=== PATIENT | male | born 1940 | race Caucasian/White ===

== ENCOUNTER 2016-05-06 14:30 | Emergency (ER) | payer OTHER ==
[~2016-05-06] VITALS: Ht 177.8 cm; Wt 93.0 kg
[~2016-05-06 14:30] MED LIST: ACETAMINOPHEN/O1 TAB PO; ACETAMINOPHEN500 M4 PO; ACETAMINOPHEN650 M4 PO; B-121000 MC3 PO; BENADRYL25 MG PO; HYDRODIURIL 2525 MG PO; IMODIUM A-D2 M1 PO; LEVEMIR FL100 UNIT/1 SC; LOSARTAN POTAS100 M1 PO; METFORMIN HCL500 M5 PO; NOVOLOG FL100 UNIT/1 SC; PRAVACHOL80 M1 PO; ROZEREM8 M1 PO; SENNA8.6 M3 PO; TRAMADOL HCL50 M1 PO; TRAZODONE HCL100 M1 PO; VICTOZA 3-0.6 MG/0.1 SC; VITAMIN D31000 UNI1 PO; ZOLOFT100 M1 PO
--- NOTE | 2016-05-06 14:36 | ED MVC/FALL/TRAUMA COMPLAINT ---
History of Present Illness General Chief Complaint: Fall Stated Complaint: FALL X2 TODAY Source: patient, old records, EMS Exam Limitations: no limitations Allergies Coded Allergies: aspirin (PER 05/06/16) Reconcile Medications Acetaminophen 325 MG TABLET 2 TAB PO TID PRN PAIN/FEVER (Reported) Cholecalciferol (Vitamin D3) (Vitamin D3) 1,000 UNIT CAPSULE 1 CAP PO 0900 SUPPLEMENT (Reported) Cyanocobalamin (Vitamin B-12) (B-12) 1,000 MCG TABLET 1 TAB PO 0900 SUPPLEMENT (Reported) Diphenhydramine HCl (Benadryl) 25 MG CAPSULE 1 CAP PO BID PRN ITCHING ( Reported) Gabapentin 100 MG CAPSULE 1 CAP PO BID UNKNOWN (Reported) Hydrochlorothiazide 25 MG TABLET 1 TAB PO DAILY BP/DIURETIC (Reported) Insulin Detemir (Levemir Flextouch) 100 UNIT/ML (3 ML) INSULN.PEN 85 U SC 2100 DIABETES (Reported) Insulin Lispro (Humalog Kwikpen U-100) 100 UNIT/ML INSULN.PEN 18 UNITS SC WM DM (Reported) Liraglutide (Victoza 3-Lior) 0.6 MG/0.1 ML (18 MG/3 ML) PEN.INJCTR 0.3 ML SC 1100 DIABETES (Reported) Loperamide HCl (Imodium A-D) 2 MG TABLET 1 TAB PO Q4P PRN DIARRHEA (Reported) Losartan Potassium 100 MG TABLET 1 TAB PO 0900 HTN (Reported) Metformin HCl (Metformin HCl ER) 500 MG [id number] 3 TAB PO 1630 DIABETES ( Reported) Pravastatin Sodium (Pravachol) 80 MG TABLET 1 TAB PO 1630 CHOLESTEROL ( Reported) Ramelteon (Rozerem) 8 MG TABLET 1 TAB PO 2000 SLEEP (Reported) Sertraline HCl (Zoloft) 100 MG TABLET 1.5 TAB PO 2000 MENTAL HEALTH (Reported ) Tramadol HCl 50 MG TABLET 1 TAB PO Q8P PRN PAIN (Reported) Trazodone HCl 150 MG TABLET 1 TAB PO QHS PRN SLEEP (Reported) Triage Nurses Notes Reviewed? yes HPI: Patient is a 75-year-old male presents for evaluation of multiple falls. Patient lives in assisted living, reports that he is supposed to ambulate with a walker. Patient was walking today when he reports he tripped and fell. Patient reports that the floor was sticky. Patient fell onto his knees, reports that he may have been on the ground for approximately 1 hour. Patient reports that he also fell approximately 2 days ago. EMS reports that patient reportedly fell twice today. Pain is 0 out of 10. Patient denies head injury, headache, neck pain, back pain, change in vision, extremity numbness, chest pain, lightheadedness, syncope, near syncope. (COREY VERNON) Vital Signs & Intake/Output Vital Signs & Intake/Output Vital Signs Date Time Temp Pulse Resp B/P Pulse O2 O2 Flow FiO2 Ox Delivery Rate 05/06 1721 97.0 63 15 162/60 97 Room Air Room Air 05/06 1525 Room Air Room Air 05/06 1446 96.4 72 20 155/70 94 Room Air Past History Travel History Traveled to [place] past 21 day No Medical History Any Pertinent Medical History? 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 No (COREY VERNON) Review of Systems Review of Systems Constitutional: Denies: chills, fever. Eyes: Denies: blurred vision, pain. Ears, Nose, Throat, Mouth: Reports: no symptoms. Respiratory: Denies: cough, short of breath. Cardiovascular: Denies: chest pain, palpitations, syncope. Gastrointestinal/Abdominal: Denies: abdominal pain, nausea, vomiting. Genitourinary: Reports: no symptoms. Musculoskeletal: Denies: back pain, neck pain. Skin: Reports: no symptoms. Neurological/Psychological: Denies: headache, numbness, unable to move lower ext, unable to move upper ext. (COREY VERNON) Physical Exam Physical Exam General Appearance: well developed/nourished, alert, awake Head: atraumatic, normal appearance, nontender Eyes: Bilateral: normal appearance, PERRL, EOMI. Ears, Nose, Throat, Mouth: hearing grossly normal, moist mucous membrane Neck: normal inspection, supple, full range of motion, no midline tenderness, no paraspinal tenderness Respiratory: normal breath sounds, chest non-tender, no respiratory distress, lungs clear Cardiovascular: regular rate/rhythm Peripheral Pulses: 2+ dorsalis pedis (R), 2+ dorsalis pedis (L) Gastrointestinal: soft, non-tender Back: normal inspection, normal range of motion, no vertebral tenderness, no midline or paraspinal tenderness Extremities: abrasions to bilateral anterior knees. Full range of motion of all 4 extremity is. No bony tenderness Neurologic/Psych: no motor/sensory deficits, awake, alert, normal mood/affect, director multimedia II-XII nml as tested Skin: warm/dry Core Measures ACS in differential dx? No Severe Sepsis Present: No Septic Shock Present: No (COREY VERNON) Progress Differential Diagnosis: aoritic dissection, abd injury, C/T/L spine injury, ext injury, ICH, pelvis injury, pnemothorax, spinal cord injury, cva, electrolyte abnormality, DKA, hyperglycemia, syncope, near syncope (COREY VERNON) Plan of Care: Orders Procedure Date/time Status MIXED VENOUS BLOOD GAS (GEN) 05/06 1446 Complete SERUM OSMOLALITY 05/06 1446 Complete COMPREHENSIVE METABOLIC PANEL 05/06 1446 Complete CBC WITHOUT DIFFERENTIAL 05/06 1446 Complete ACETONE 05/06 1446 Complete Laboratory Tests 05/06/16 1528: Anion Gap 12, Estimated GFR 54 L, BUN/Creatinine Ratio 27.7 H, Glucose 317 H, Serum Osmolality 316 H, Calcium 9.3, Total Bilirubin 0.9, AST 23, ALT 42, Alkaline Phosphatase 63, Total Protein 6.8, Albumin 3.8, Globulin 3.0, Albumin/ Globulin Ratio 1.3, Acetone Level NEGATIVE 05/06/16 1506: Bicarbonate Actual 27 H, Mixed VBG pH 7.40, Mixed VBG pCO2 44, Mixed VBG O2 Saturation 45, Carboxyhemoglobin 1.0 L, O2 Concentration % RA, O2 Delivery Method RA, Phlebotomy Draw Site BEULAH. 05/06/16 1505: CBC w Diff NO MAN DIFF REQ, RBC 4.78, MCV 82.8, MCH 27.8, RDW 17.4 H, MPV 8.8, Gran % 78.6 H, Lymphocytes % 11.8 L, Monocytes % 8.1, Eosinophils % 1.0, Basophils % 0.5, Absolute Granulocytes 6.5, Absolute Lymphocytes 1.0 L, Absolute Monocytes 0.7 H, Absolute Eosinophils 0.1, Absolute Basophils 0, PUBS MCHC 33.5 05/06/2016 3:47:07 PM: Patient now endorsing coccyx pain. Patient reports that he did not feel pain to the coccyx area when he fell, pain onset while sitting in the stretcher in the emergency department. 05/06/2016 4:58:00 PM: Results of labs discussed with patient. Insulin ordered. Patient ambulated with walker without difficulty 05/06/2016 5:07:16 PM: Discussed with and seen by Dr. Saldaña. (COREY VERNON) Departure Departure Disposition: HOME OR SELF CARE Condition: Stable Clinical Impression Primary Impression: Multiple falls Secondary Impressions: Hyperglycemia Referrals: GEOFFREY SORIA,SUSIE Sarmiento (PCP/Family) Additional Instructions: Follow up with your primary doctor within 1 week for further evaluation. Call in the morning for appointment. Check your blood sugar at least 3 times a day and keep a record of your blood sugars to bring with you to your doctor. Use your walker at all times with ambulation. Return to the ER if any worsening of symptoms. Departure Forms: Customer Survey General Discharge Information (COREY VERNON) PA/ORACLE DATABASE ARCHITECT Co-Sign Statement Statement: ED Attending supervision documentation- [X] I saw and evaluated the patient. I have also reviewed all the pertinent lab results and diagnostic results. I agree with the findings and the plan of care as documented in the PA's/ORACLE DATABASE ARCHITECT's documentation. [] I have reviewed the ED Record and agree with the PA's/ORACLE DATABASE ARCHITECT's documentation. [] Additions or exceptions (if any) to the PAs/ORACLE DATABASE ARCHITECT's note and plan are summarized below: [] (DRU SORIA,ARACELIS Godinez)
[2016-05-06 15:39] LABS: ABSOLUTE BASOPHIL COUNT 0 /CUMM (0.0-0.2); ABSOLUTE EOSINOPHIL COUNT 0.1 /CUMM (0.0-0.7); ABSOLUTE GRANULOCYTE CT 6.5 /CUMM (1.4-6.5); ABSOLUTE MONOCYTE COUNT 0.7 /CUMM (0.10-0.60); BASOPHIL % 0.5 % (0.0-2.0); GRANULOCYTE % 78.6 % (42.2-75.2); HEMATOCRIT 39.6 % (42-52); MEAN CORPUSCULAR HGB 27.8 PG (27.0-31.0); MEAN CORPUSCULAR HGB CONC 33.5 G/DL (33.0-37.0); MEAN CORPUSCULAR VOLUME 82.8 FL (80.0-94.0); MEAN PLATELET VOLUME 8.8 FL (7.4-10.4); PLATELET COUNT 202 /CUMM (130-400); RBC DISTRIBUTION WIDTH 17.4 % (11.5-14.5); RED BLOOD CELL CT 4.78 /CUMM (4.70-6.10); WHITE BLOOD CELL COUNT 8.3 /CUMM (4.8-10.8)
[2016-05-06] MEDS ORDERED: ACETAMINOPHEN325 M2 PO (16:07)
[2016-05-06] MEDS ORDERED: GABAPENTIN100 M2 PO (16:10)
[2016-05-06] MEDS ORDERED: HYDROCHLOROTHIA25 M1 PO (16:10)
[2016-05-06] MEDS ORDERED: HUMALOG KW100 UNIT/1 SC (16:14)
[2016-05-06 22:40] VITALS: BP 149/84
== END 2016-05-06 22:40 ==
LOC: ERH 14:30
PROVIDERS: Physician Assistant
DX: Z04.3 Encounter for examination and observation following other accident (principal); E11.65 Type 2 diabetes mellitus with hyperglycemia; I10 Essential (primary) hypertension; W01.0XXA Fall on same level from slipping, tripping and stumbling without subsequent striking against object, initial encounter; Y93.01 Activity, walking, marching and hiking; Y92.129 Unspecified place in nursing home as the place of occurrence of the external cause
CPT/HCPCS: 96372

== ENCOUNTER 2016-05-17 12:20 | Inpatient (IN) | payer OTHER ==
[~2016-05-17] VITALS: Ht 177.8 cm; Wt 95.5 kg
[~2016-05-17 12:20] MED LIST changes: +ACETAMINOPHEN325 M2 PO; +GABAPENTIN100 M2 PO; +HUMALOG KW100 UNIT/1 SC; +HYDROCHLOROTHIA25 M1 PO
--- NOTE | 2016-05-17 14:03 | ED DYSPNEA/ASTHMA COMPLAINT ---
History of Present Illness General Chief Complaint: General Adult Stated Complaint: BIBA FOR COUGH, CONGESTION Source: patient Exam Limitations: no limitations Vital Signs & Intake/Output Vital Signs & Intake/Output Vital Signs Date Time Temp Pulse Resp B/P Pulse O2 O2 Flow FiO2 Ox Delivery Rate 05/17 1738 97.7 90 18 162/71 95 Nasal 2.0L Cannula 05/17 1700 96 Nasal 2.0L Cannula 05/17 1524 97.0 68 18 145/67 98 Nasal 2.0L Cannula 05/17 1225 97 Nasal 2.0L Cannula 05/17 1223 96.2 82 20 138/70 97 Nasal 2.0L Cannula Allergies Coded Allergies: No Known Allergies (05/17/16) Triage Note: BIBA FROM HOME C/O COUGH, CONGESTION X3 DAYS. WHEEZING AND SOB STARTED TODAY. RECEIVED 1 DUONEB BY EMS PASSENGER SERVICE REPRESENTATIVE. FINGERSTICK IN FIELD 248. O2 92% ON RA, INCREASED TO 97% ON 2LNC AFTER NEB. ALSO BEEN HAVING RECENT FALLS Triage Nurses Notes Reviewed? yes Onset: Gradual Duration: constant Timing: recent history Severity: moderate HPI: Patient is a 75-year-old male with a past medical history of falls, pacemaker placement in 12/06, diabetes, hyperlipidemia was been evaluated recently AT [facility] emergency room for multiple falls in which he states that he ALWAYS trips on objects in his house and states that the FLOOR IS "STICKY" AND ALSO MAKES HIM fall, HE STATES yesterday ANOTHER FALL OCCURRED however no traumatic injury had occurred. Patient was sent in by visiting nurse for concerns of cough wheezing and shortness of breath. Patient is not on home O2 and is not currently SMOKING Patient denies any fever chills chest pain arm pain jaw pain. Patient states that he has no change in his leg swelling FROM BASELINE. (KRISTY GUTIERREZ) Reconcile Medications Acetaminophen 325 MG TABLET 2 TAB PO TID PRN PAIN/FEVER (Reported) Cholecalciferol (Vitamin D3) (Vitamin D3) 1,000 UNIT CAPSULE 1 CAP PO 0900 SUPPLEMENT (Reported) Diphenhydramine HCl (Benadryl) 25 MG CAPSULE 1 CAP PO BID PRN ITCHING ( Reported) Gabapentin 100 MG CAPSULE 1 CAP PO BID UNKNOWN (Reported) Heparin (Heparin-1/2NS 25,000 Units/500) 25,000 UNIT/500 ML (50 UNIT/ML) IV.SOLN 800 UNITS IV CONTINOUS INFUSION NSTEMI Hydrochlorothiazide 25 MG TABLET 1 TAB PO DAILY BP/DIURETIC (Reported) Insulin Detemir (Levemir Flextouch) 100 UNIT/ML (3 ML) INSULN.PEN 85 U SC 2100 DIABETES (Reported) Insulin Lispro (Humalog Kwikpen U-100) 100 UNIT/ML INSULN.PEN 18 UNITS SC WM DM (Reported) Loperamide HCl (Imodium A-D) 2 MG TABLET 1 TAB PO Q4P PRN DIARRHEA (Reported) Losartan Potassium 100 MG TABLET 1 TAB PO 0900 HTN (Reported) Metformin HCl (Metformin HCl ER) 500 MG [id number] 3 TAB PO 1630 DIABETES ( Reported) Metoprolol Tartrate 5 MG/5 ML VIAL 5 MG IV Q12 HEART HEALTH Nitroglycerin (Nitroglycerin Patch) 0.4 MG/HOUR PATCH.TD24 0.4 MG TOP DAILY NSTEMI Pravastatin Sodium (Pravachol) 80 MG TABLET 1 TAB PO 1630 CHOLESTEROL ( Reported) Ramelteon (Rozerem) 8 MG TABLET 1 TAB PO 2000 SLEEP (Reported) Sertraline HCl (Zoloft) 100 MG TABLET 1.5 TAB PO 2000 MENTAL HEALTH (Reported ) Tramadol HCl 50 MG TABLET 1 TAB PO Q8P PRN PAIN (Reported) Trazodone HCl 150 MG TABLET 1 TAB PO QHS PRN SLEEP (Reported) (DRU SORIA,ARACELIS Godinez) Past History Travel History Traveled to [place] past 21 day No Medical History Any Pertinent Medical History? 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 No (ALISON NICHOLSON,KRISTY) Review of Systems Review of Systems Constitutional: Reports: no symptoms. EENTM: Reports: see HPI. Respiratory: Reports: see HPI, cough, wheezing. Cardiovascular: Reports: no symptoms. GI: Reports: no symptoms. Genitourinary: Reports: no symptoms. Musculoskeletal: Reports: no symptoms. Skin: Reports: no symptoms. Neurological/Psychological: Reports: no symptoms. Hematologic/Endocrine: Reports: no symptoms. Immunologic/Allergic: Reports: no symptoms. All Other Systems: Reviewed and Negative (KRISTY GUTIERREZ) Physical Exam Physical Exam General Appearance: no apparent distress, comfortable Respiratory: chest non-tender, wheezing, respiratory distress (MILD) Comments: HEENT: Normal EENT exam, extraocular motion intact, no nystagmus. Pupils equally round and reactive to light and accommodation. Nose is atraumatic. External auditory canal and Tympanic membranes clear. Pharynx normal. No swelling or edema. Neck: Supple, no lymphadenopathy, normal range of motion without pain or tenderness Back: Nontender, no CVA tenderness. Cardiovascular: Regular rate and rhythms no murmurs rubs or gallops, normal JVP Abdomen: Soft, nontender nondistended, no appreciable organomegaly. Normal bowel sounds. No ascites Extremity: No edema, no calf tenderness to palpation, normal and equal pulses. Neuro: Alert oriented x3, motor sensory normal, cranial nerves II through XII grossly intact. Skin: No appreciable rash on exposed skin, skin is warm and dry. Psych: Mood and affect is normal, memory and judgment is normal. Core Measures ACS in differential dx? Yes Severe Sepsis Present: No Septic Shock Present: No (KRISTY GUTIERREZ) Progress Differential Diagnosis: asthma, AMI, bronchitis, costochondritis, CHF, COPD, musculoskeletal pain, pericarditis, pulmonary embolism, pneumonia, pneumothorax, unstable angina Plan of Care: Orders Procedure Date/time Status Consistent Carbohydrate 1 05/18 B Active BASIC ELECTROLYTES PLUS BUN&CR 05/18 0600 Active TROPONIN LEVEL 05/18 0200 Active EKG 05/18 0200 Active Consistent Carbohydrate 3 05/17 D Complete TROPONIN LEVEL 05/18 1999 Active EKG 05/18 1999 Active Vital Signs 05/17 183 Active Teach/Educate 05/17 1832 Active Pain Treatment and Response 05/17 1832 Active Nutritional Intake, Monitor 05/17 1832 Active Isolation 05/17 183 Active Intake & Output 05/17 1832 Active Patient Care Conference 05/17 1832 Active Activity/Ambulation 03/27 1833 Active FingerStick- Glucose 05/17 1832 Active Pathway - chart 05/17 1806 Active House Staff 05/17 1806 Active Code Status 05/17 1806 Active LACTIC ACID 05/17 1710 Active Patient Data 05/17 1657 Active Telemetry/Skein Yarn Dyer Helper 05/17 1653 Active Misc Message 05/17 1634 Active ED Holding Orders 05/17 1634 Active Vital Signs 05/17 1634 Active Code Status 05/17 1634 Complete Patient Data 05/17 1629 Active Admit to inpatient 05/17 1626 Active ARTERIAL BLOOD GAS (GEN) 05/17 1618 Active GLYCOSYLATED HGB 05/17 1439 Active RAPID VIRAL INFLUENZA A 05/17 1410 Active LOWER RESPIRATORY CULTURE 05/17 1410 Active BLOOD CULTURE 05/17 1410 Active TROPONIN LEVEL 05/17 1410 Active LACTIC ACID 05/17 1410 Active COMPREHENSIVE METABOLIC PANEL 05/17 1410 Active CBC WITHOUT DIFFERENTIAL 05/17 1410 Complete B-TYPE NATRIURETIC PEP (BNP) 05/17 1410 Active EKG 05/17 1229 Active Intake & Output 05/17 1225 Active TRC EVALUATION (GEN) 05/17 UNK Active PT Evaluate & Treat 05/17 UNK Active CHF Core Measures 05/17 UNK Active Lab Add-on Test 05/17 UNK Active Weight 05/17 UNK Active VTE Mechanical Prophylaxis 05/17 UNK Active ECHOCARDIOGRAM 05/17 UNK Active Current Medications Sig/Theodore Start time Last Medication Dose Stop Time Status Admin Cholecalciferol 1,000 IU DAILY 05/18 1000 UNVr (Vitamin D) Hydrochlorothiazide 25 MG DAILY 05/18 1000 UNVr (Hydrodiuril) Insulin Detemir 60 UNITS DAILY 05/18 1000 UNVr (Levemir) Pravastatin Sodium 80 MG DAILY 05/18 1000 UNVr (Pravachol) Losartan Potassium 100 MG 0905/18 0900 UNVr (Cozaar) Insulin Aspart 0 TIDAC 05/18 0800 UNVr (NovoLOG) Methylprednisolone 40 MG Q8 05/18 0600 UNVr (Solumedrol) Gabapentin 100 MG BID 05/17 2200 UNVr (Neurontin) Heparin Sodium 5,000 UNIT Q8 05/17 2200 UNVr (Porcine) Ramelteon 8 MG 05/17 UNVr (Rozerem) Sertraline HCl 150 MG 05/17 UNVr (Zoloft) Diphenhydramine HCl 25 MG BID PRN 05/17 1814 UNVr (Benadryl) Furosemide 40 MG 0800 & 1700 05/17 1814 UNVr (Lasix) Trazodone HCl 150 MG AT BEDTIME NEED.. 05/17 1814 UNVr (Desyrel) Laboratory Tests 05/17/16 1655: pH 7.45, pCO2 37, pO2 96, HCO3 25, ABG O2 Sat (Measured) 96.0, P-50 (Temp Corrected) N, Carboxyhemoglobin 0.9 L, O2 Concentration % 2L, Temperature 97.0, O2 Delivery Method NC, Phlebotomy Draw Site RIGHT BRACHIAL 05/17/16 1439: Anion Gap 9, Estimated GFR 54 L, BUN/Creatinine Ratio 24.6, Glucose 240 H, Hemoglobin A1c Pending, Lactic Acid 1.7, Calcium 11.1 H, Total Bilirubin 1.1, AST 23, ALT 41, Alkaline Phosphatase 62, Troponin I 0.10, Aeg-W-Hpgerkpqsjn Pept 1830 H, Total Protein 6.9, Albumin 4.1, Globulin 2.8, Albumin/Globulin Ratio 1.5, CBC w Diff NO MAN DIFF REQ, RBC 4.66 L, MCV 81.2, MCH 27.6, RDW 17.5 H, MPV 8.0, Gran % 69.0, Lymphocytes % 14.4 L, Monocytes % 15.4 H, Eosinophils % 1.1, Basophils % 0.1, Absolute Granulocytes 3.9, Absolute Lymphocytes 0.8 L, Absolute Monocytes 0.9 H, Absolute Eosinophils 0.1, Absolute Basophils 0, PUBS MCHC 34.0 Microbiology 05/17 1452 BLOOD: Blood Culture - RECD 05/17 1439 BLOOD: Blood Culture - RECD 05/17 1410 LOWER RESP: Respiratory Culture - ORD 05/17 141 LOWER RESP: Gram Stain - ORD 05/17 141 NASOPHARYN: Influenza Virus A & B Rapid Smear - ORD Patient currently has noted significant wheezing on exam patient was given multiple nebulizer treatments with mild improvement of exam findings of wheezing. Patient was noted to barely finish a sentence without getting out of breath. Patient was given 2 L of nasal cannula oxygen supplementation. Patient denies any chest pain He was tried to ambulate in the emergency room however he could not proceed due to significant shortness of breath. Patient will be admitted for concerns of new onset of COPD. Patient is a former smoker (ALISON NICHOLSON,KRISTY) Diagnostic Imaging: Viewed by Me: Radiology Read, CT Scan. Radiology Impression: SEE COMMENTS Initial ED EK BPM, ATRIAL PACED Comments: PATIENT: ELOY LI PRESENT AGE: 75 PATIENT ACCOUNT NO: [id number] : 42 LOCATION: [facility] ORDERING PHYSICIAN: KRISTY NICHOLSON SERVICE DATE: 05/17/16 EXAM TYPE: CAT - CT HEAD WO IV CONTRAST EXAMINATION: CT HEAD WITHOUT CONTRAST CLINICAL INFORMATION: Multiple falls COMPARISON: 02/28/2015 TECHNIQUE: Contiguous axial imaging was performed from the skull base to vertex without intravenous contrast. DLP: 601 mGy-cm. FINDINGS: The study is motion limited. There is no evidence of acute intracranial hemorrhage or territorial infarction. No abnormal mass effect or midline shift is seen. [place] to white matter differentiation is well preserved. No extra-axial fluid collections are identified. No hydrocephalus. Proportional prominence of the ventricles and sulcal spaces is consistent with mild volume loss. Patchy periventricular and deep white matter hypoattenuation is consistent with mild small vessel ischemic changes. Right basal ganglia chronic lacunar infarct again noted. The osseous structures and soft tissues are normal. The mastoid air cells are well aerated. There is diffuse opacification of the right ethmoid air cells, right sphenoid sinus, and right maxillary sinus. IMPRESSION: No acute intracranial pathology. Mild volume loss with small vessel ischemic changes. Redemonstration of opacification of the right paranasal sinuses. PATIENT: ELOY LI PRESENT AGE: 75 PATIENT ACCOUNT NO: [id number] : 42 LOCATION: [facility] ORDERING PHYSICIAN: KRISTY NICHOLSON SERVICE DATE: 05/17/16-1410 EXAM TYPE: RAD - XRY-PORTABLE CHEST XRAY EXAMINATION: XR PORTABLE CHEST CLINICAL INFORMATION: Shortness of breath and wheezing COMPARISON: Chest x-rays most recent prior dated 12/05/2015 TECHNIQUE: Portable AP view of the chest was obtained. FINDINGS: Left-sided dual lead pacemaker device in place. Stable cardiomediastinal silhouette. No acute airspace opacity. Linear subsegmental atelectasis lateral aspect left lower lung. No evidence of pleural effusion. Status post right shoulder arthroplasty. No acute osseous abnormality. IMPRESSION: No acute pulmonary disease. (KRISTY GUTIERREZ) Departure Departure Disposition: STILL A PATIENT Condition: Stable Clinical Impression Primary Impression: COPD (chronic obstructive pulmonary disease) Secondary Impressions: Falls frequently, Weakness Referrals: GEOFFREY SORIA,SUSIE Sarmiento (PCP/Family) Departure Forms: Customer Survey General Discharge Information Admission Note Spoke With: JOSUÉ FARIAS MD Documentation of Exam: Documentation of any treatments & extenuating circumstances including Concerns Regarding Discharge (functional status, medication knowledge or non-compliance, living conditions, etc.) that warrant an admission rather than observation: [ Discussed patient with Dr. FARIAS who agrees with telemetry admission for concerns of COPD weakness and multiple falls. Patient requires IV steroids, IV antibiotics repeat nebulizer treatments pulmonary consultation and telemetry monitoring. Outpatient treatment at this time would be medically harmful] (KRISTY GUTIERREZ) Departure Prescriptions: Current Visit Scripts Heparin (Heparin-1/2NS 25,000 Units/500) 800 UNITS IV CONTINOUS INFUSION #1 VIAL Metoprolol Tartrate 5 MG IV Q12 #1 VIAL Nitroglycerin (Nitroglycerin Patch) 0.4 MG TOP DAILY #1 PATCH Psych Admission Note Psychiatric Admission: I PA/SAP SECURITY CONSULTANT Co-Sign Statement Statement: ED Attending supervision documentation- [x] I saw and evaluated the patient. I have also reviewed all the pertinent lab results and diagnostic results. I agree with the findings and the plan of care as documented in the PA's/SAP SECURITY CONSULTANT's documentation. [] I have reviewed the ED Record and agree with the PA's/SAP SECURITY CONSULTANT's documentation. [] Additions or exceptions (if any) to the PAs/SAP SECURITY CONSULTANT's note and plan are summarized below: [] (DRU SORIA,ARACELIS Godinez) Critical Care Note Critical Care Note Critical Care Time: 30-74 min (KRISTY GUTIERREZ)
--- NOTE | 2016-05-17 14:35 | RADIOLOGY REPORT ---
EXAMINATION: XR PORTABLE CHEST CLINICAL INFORMATION: Shortness of breath and wheezing COMPARISON: Chest x-rays most recent prior dated 12/05/2015 TECHNIQUE: Portable AP view of the chest was obtained. FINDINGS: Left-sided dual lead pacemaker device in place. Stable cardiomediastinal silhouette. No acute airspace opacity. Linear subsegmental atelectasis lateral aspect left lower lung. No evidence of pleural effusion. Status post right shoulder arthroplasty. No acute osseous abnormality. IMPRESSION: No acute pulmonary disease.
[2016-05-17 14:48] LABS: ABSOLUTE BASOPHIL COUNT 0 /CUMM (0.0-0.2); ABSOLUTE EOSINOPHIL COUNT 0.1 /CUMM (0.0-0.7); ABSOLUTE GRANULOCYTE CT 3.9 /CUMM (1.4-6.5); ABSOLUTE LYMPH COUNT 0.8 /CUMM (1.2-3.4); ABSOLUTE MONOCYTE COUNT 0.9 /CUMM (0.10-0.60); BASOPHIL % 0.1 % (0.0-2.0); EOSINOPHIL % 1.1 % (0-5); HEMATOCRIT 37.9 % (42-52); MEAN CORPUSCULAR HGB 27.6 PG (27.0-31.0); MEAN CORPUSCULAR VOLUME 81.2 FL (80.0-94.0); PLATELET COUNT 160 /CUMM (130-400); RBC DISTRIBUTION WIDTH 17.5 % (11.5-14.5); RED BLOOD CELL CT 4.66 /CUMM (4.70-6.10); WHITE BLOOD CELL COUNT 5.7 /CUMM (4.8-10.8)
--- NOTE | 2016-05-17 17:02 | History & Physical ---
ASHLEE SORIA,[facility] 05/17/16 1702: General Information and HPI History of Present Illness: Mr. Lord is a 75-year-old gentleman with a PMH significant for HTN, HLD, T2DM with neuropathy, depression/anxiety, adjustment disorder, last admitted in Nov 2015 for symptomatic bradycardia, returns from [facility] with chief complaints of dypsnea with cough and nasal congestion for the past 4-5 days. Per the patient and his daughter at bedside, he has been confused often and fallen very frequently recently, resulting in 7 mechanical falls over the past 2 weeks. Currently c/o left hip pain with movement. He denies LOC and reports that he fell because his knees gave out. Denies chset pain, palpitations, f/c, dizziness, lightheadedness,diaphoresis, n/v/c/d. The patient has previously been worked up for frequent falls with no significant abnormal findings. His fall was attributed to neuropathy. Patient had a pacemaker placed by Dr. Blackman during the last admission at [place] in February this year due to symptomatic bradycardia with BBB. On social history he is a former smoker who quit 15+ years ago. Denies EtOH/ illicit drug use. Lives with his twin brother at [facility]. Ambulates with a walker and wheelchair alternatively. PCP - Dr. Gamino Mail Order Clerk - Dr. Bailey Surgeon - Dr. Blackman Daughter Lorie Lord: [phone] DNR/DNI. Allergies/Medications Allergies: Coded Allergies: No Known Allergies (05/17/16) Past History Travel History Traveled to [facility] past 21 day No Medical History Neurological: MEMORY NEUROPATHY Cardiovascular: hypertension Respiratory: NONE Gastrointestinal: NONE Hepatic: NONE Renal: NONE Musculoskeletal: CHRONIC R SHOULDER Psychiatric: anxiety, depression, ADJUSTMENT DISORDER Endocrine: diabetes Blood Disorders: NONE Cancer(s): NONE INSURANCE CONSULTANT/Reproductive: NONE History of MRSA: No History of VRE: No History of CDIFF: No Surgical History Surgical History: Right shoulder repair Past Family/Social History Family History Relations & Conditions if any BROTHER Cardiac pacemaker Sinus bradycardia Relation not specified for: Diabetes mellitus FH: hypertension FH: myocardial infarction Psychosocial History Who Do You Live With? self Services at Home: None Primary Language: Mexican ETOH Use: denies use Illicit Drug Use: denies illicit drug use Living Will? unknown Functional Ability ADLs Independent: dressing, eating, toileting, bathing. Ambulation: Walker was instructed to him but has not used it IADLs Independent: food prep, telephone. Needs Assist: shopping, housework, finances, transportation, medication admin. Review of Systems Review of Systems Constitutional: Reports: see HPI. Exam & Diagnostic Data Last 24 Hrs of Vital Signs/I&O Vital Signs Date Time Temp Pulse Resp B/P Pulse O2 O2 Flow FiO2 Ox Delivery Rate 05/17 1738 97.7 90 18 162/71 95 Nasal 2.0L Cannula 05/17 1700 96 Nasal 2.0L Cannula 05/17 1524 97.0 68 18 145/67 98 Nasal 2.0L Cannula 05/17 1225 97 Nasal 2.0L Cannula 05/17 1223 96.2 82 20 138/70 97 Nasal 2.0L Cannula Intake & Output 05/17 1600 05/17 0800 05/17 0000 Intake Total 0 Output Total Balance 0 Intake, Oral 0 Patient 92.986 kg Weight Physical Exam General Appearance Alert, Oriented X3, Cooperative, No Acute Distress Skin No Rashes, No Breakdown, No Significant Lesion HEENT Atraumatic, PERRLA, EOMI, Dry MM Neck Supple, No LAD Cardiovascular Regular Rate, Normal S1, Normal S2, No Murmurs, Gallops, Rubs Lungs Clear to Auscultation, Normal Air Movement Abdomen Normal Bowel Sounds, Soft, No Tenderness Neurological Normal Speech, Cranial Nerves 3-12 NL Extremities No Clubbing, No Cyanosis, No Edema, Normal Pulses, No Tenderness/ Swelling Vascular Normal Pulses, Pulses Symmetrical Assessment/Plan Assessment: Mr. 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 CHF. # Acute hypoxic resp failure Patient was reportedly hypoxic on RA at the [facility]. Currently requiring 2 liters of oxygen via NC to maintain O2 sat abov 92%. BNP > 1800 oin admission. * Admit to telemetery unit * Obtain TTE * Oxygen support and TRC neb tx as needed * Consult cardiology * Begin IV steroid * Start IV lasix 40mg BID * Strict I&Os with daily weights # Frequent falls Patient has fallen 7 times in 2 weeks per the jag. Radhaly endorses left hip pain. * Check X-ray of th left hip for fractures * Follow echo * Apprciate cardio recs # SHELDON Patient presents with a creatinine of 1.3 on admission. * Gentle IV hydration * Hold nephrotoxins * BEP daily, trend Cr # Hypertension * Cont home meds HCTZ 25 mg daily and losartan 100 mg daily QAM # Type 2 diabetes mellitus * Hold oral hypoglycemics * Novolog SSI with accuchecks * Consult endo if sugars not well controlled * Diabetic diet # Mood disorder and amnesia * Cont home meds Zoloft 100mg daily and Rozerm 8mp Qpm daily. * Consider resuming Trazodone dose 150 mg daily if needed # Diabetic diet # Mild pain pathway # DVTppx with SQH # DNR/I. As Ranked By This Provider Problem List: 1. Chest wall contusion 2. Junctional escape beats 3. AV block 4. Hyperglycemia 5. Bradycardia 6. AV block, 2nd degree 7. Mood disorder 8. Anemia 9. Adjustment insomnia 10. DVT prophylaxis 11. DNR (do not resuscitate) 12. DNI (do not intubate) 13. Amnesia 14. Chronic anemia 15. Cardiac pacemaker 16. Leukocytosis 17. Hypokalemia 18. Syncope 19. Multiple falls 20. COPD (chronic obstructive pulmonary disease) 21. Weakness Core Measures/Miscellaneous Acute Coronary Syndrome ACS Diagnosis: No Cerebrovascular Accident CVA/TIA Diagnosis: No Congestive Heart Failure CHF Diagnosis: No Venous Thromboembolism VTE Risk Factors: Age > 40 No [facility] VTE prophylaxis d/t: No contraindications No VTE Pharm Prophylaxis d/t: No contraindications VTE Diagnosis: No VTE Type: NONE VTE Confirmed by (Test): NONE Severe Sepsis Severe Sepsis Present: No Septic Shock Septic Shock Present: No Miscellaneous Documentation Attending Case Discussed With: JASON GOODMAN MD Primary Care Physician: GEOFFREY SORIA,SUSIE Sarmiento Patient sees these Specialists See HPI Level of Patient Care: Telemetry JASON GOODMAN 05/17/16 1723: Attending MD Review Statement Attending Statement Attending MD Statement: examined this patient, discuss w/resident/PA/GERIATRIC AIDE, agreed w/resident/PA/GERIATRIC AIDE, discussed with family, reviewed EMR data (avail), discussed with nursing, discussed with case mgmt, reviewed images Attending Assessment/Plan: 75 o/m with pmh of bradycardia s/p pacemaker , smoker comes with shortness of breath and fall. Patient also has h/o frequent falls and c/o hip pain. Patient feels better when sitting upright. Patient received solu-medrol, in ED. labs show elevated BNP, h/o DM hyperglycemia on insulin lantus 85 units at home and novolog 18 units tid with meals. Patient being admitted for CHF vs copd , obtain echo, cardio consult, i/v lasix 40 bid, strict i/o, daily weights, chf core measures. Obtain xray of hip for hip pain r/o fracture. H/o smoker and COPD. continue with bronchodialtors and steroids. RISS and titrate insulin as needed, resume home meds, darcy/dvt prophylaxis KRISTY MONTOYA 05/17/161911: General Information and HPI Allergies/Medications Home Med list Acetaminophen 325 MG TABLET 2 TAB PO TID PRN PAIN/FEVER (Reported) Cholecalciferol (Vitamin D3) (Vitamin D3) 1,000 UNIT CAPSULE 1 CAP PO 0900 SUPPLEMENT (Reported) Diphenhydramine HCl (Benadryl) 25 MG CAPSULE 1 CAP PO BID PRN ITCHING ( Reported) Gabapentin 100 MG CAPSULE 1 CAP PO BID UNKNOWN (Reported) Heparin (Heparin-1/2NS 25,000 Units/500) 25,000 UNIT/500 ML (50 UNIT/ML) IV.SOLN 800 UNITS IV CONTINOUS INFUSION NSTEMI Hydrochlorothiazide 25 MG TABLET 1 TAB PO DAILY BP/DIURETIC (Reported) Insulin Detemir (Levemir Flextouch) 100 UNIT/ML (3 ML) INSULN.PEN 85 U SC 2100 DIABETES (Reported) Insulin Lispro (Humalog Kwikpen U-100) 100 UNIT/ML INSULN.PEN 18 UNITS SC WM DM (Reported) Loperamide HCl (Imodium A-D) 2 MG TABLET 1 TAB PO Q4P PRN DIARRHEA (Reported) Losartan Potassium 100 MG TABLET 1 TAB PO 0900 HTN (Reported) Metformin HCl (Metformin HCl ER) 500 MG [id number] 3 TAB PO 1630 DIABETES ( Reported) Metoprolol Tartrate 5 MG/5 ML VIAL 5 MG IV Q12 HEART HEALTH Nitroglycerin (Nitroglycerin Patch) 0.4 MG/HOUR PATCH.TD24 0.4 MG TOP DAILY NSTEMI Pravastatin Sodium (Pravachol) 80 MG TABLET 1 TAB PO 1630 CHOLESTEROL ( Reported) Ramelteon (Rozerem) 8 MG TABLET 1 TAB PO 2000 SLEEP (Reported) Sertraline HCl (Zoloft) 100 MG TABLET 1.5 TAB PO 2000 MENTAL HEALTH (Reported ) Tramadol HCl 50 MG TABLET 1 TAB PO Q8P PRN PAIN (Reported) Trazodone HCl 150 MG TABLET 1 TAB PO QHS PRN SLEEP (Reported) Resident Review Statement Resident Statement: examined this patient, discussed with merchandising internship, discussed with family, reviewed images Other Findings: Refer to extensive HPI from Dr. Hinojosa above, this is a 75 years old gentleman resident of assisted living facility who is presenting with 5 days history of cough and runny nose and shortness of breath especially on exertion without history of fever or chills or sick contacts. He has extensive cigarette smoking of about 50 years 2 packs per day making about 100 pack years but denies history of COPD in the past. Patient reports multiple falls 5 times in the past 1 week not associated with dizziness or lightheadedness. He has been using the same number of pillows and denies any swelling of lower limbs On arrival the patient was afebrile 96.2 heart rate of 82 blood pressure 132/70 and saturating 97% on room air Blood work on arrival normal white count of 5.7 slightly anemic 12.9 over 37.9, slightly increased creatinine of 1.3 and a significant being a true atretic peptide of 18,000 CXR did not show any acute pathology CT head: No acute intracranial pathology. Mild volume loss with small vessel ischemic changes. Redemonstration of opacification of the right paranasal sinuses. X-ray of the hip: No acute fracture or malalignment. Mild degenerative changes of both hips. Assessment and plan Acute CHF COPD exacerbation Diabetes mellitus Frequent falls SHELDON Admit patient to telemetry floor, vital signs every shift, Accu-Cheks, orthostatic vitals Fall precautions, PT evaluation IV Lasix 40 mg twice a day IV Solu-Medrol 40 mg every 8 Echocardiogram, cardiology consult Continue home blood pressure medications HCTZ 25 mg and losartan 100 mg Consistent carbohydrate 3 diet with low salt, Pravachol 80 mg
--- NOTE | 2016-05-17 18:42 | CT SCAN REPORT ---
EXAMINATION: CT HEAD WITHOUT CONTRAST CLINICAL INFORMATION: Multiple falls COMPARISON: 02/28/2015 TECHNIQUE: Contiguous axial imaging was performed from the skull base to vertex without intravenous contrast. DLP: 601 mGy-cm. FINDINGS: The study is motion limited. There is no evidence of acute intracranial hemorrhage or territorial infarction. No abnormal mass effect or midline shift is seen. [place] to white matter differentiation is well preserved. No extra-axial fluid collections are identified. No hydrocephalus. Proportional prominence of the ventricles and sulcal spaces is consistent with mild volume loss. Patchy periventricular and deep white matter hypoattenuation is consistent with mild small vessel ischemic changes. Right basal ganglia chronic lacunar infarct again noted. The osseous structures and soft tissues are normal. The mastoid air cells are well aerated. There is diffuse opacification of the right ethmoid air cells, right sphenoid sinus, and right maxillary sinus. IMPRESSION: No acute intracranial pathology. Mild volume loss with small vessel ischemic changes. Redemonstration of opacification of the right paranasal sinuses.
--- NOTE | 2016-05-17 19:02 | RADIOLOGY REPORT ---
EXAMINATION: XR HIPS, BILATERAL WITH PELVIS CLINICAL INFORMATION: History of frequent falls. Rule out hip fracture. COMPARISON: None TECHNIQUE: Frontal view of the pelvis with lateral view of each hip. FINDINGS: No fracture or dislocation. The femoral heads are well-seated within their respective acetabula. Mild degenerative changes are seen at both hips with joint space narrowing and sclerosis. The pelvic ring is intact. The sacroiliac joints and pubic symphysis are intact. The bowel gas pattern is unremarkable. IMPRESSION: No acute fracture or malalignment. Mild degenerative changes of both hips.
[2016-05-17 19:40] VITALS: BP 152/82
--- NOTE | 2016-05-18 03:49 | Event Note ---
Event Note Event Note: Notified by nursing around 3:20 AM that patient developed positive troponins to 7.85 from 0.12. His vital signs were stable at the time and patient was resting comfortably on his bed in no acute distress. On review of systems, patient endorsed right jaw pain, a 4/10 on the pain scale, that has been present since yesterday. He denies chest pain, palpitations, shortness of breath, diaphoresis or arm pain. EKG was obtained and showed atrial senses ventricular paced complexes. HR 76. ST slightly elevated in V2-V4, only minimally increased from previous EKGs. Of note , stool guiac negative after patient had a bowel movement (per nurse). Senior resident discussed case with Dr. Tab MD who suggested IV metoprolol, IV heparin drip, nitroglycerin and NPO pending possible cardiac cath in AM. Will make both nursing staff and AM team aware. We will monitor patient closely. WIll sign out to AM team overnight events.
[2016-05-18 04:08] LABS: ABSOLUTE BASOPHIL COUNT 0 /CUMM (0.0-0.2); ABSOLUTE EOSINOPHIL COUNT 0 /CUMM (0.0-0.7); ABSOLUTE GRANULOCYTE CT 5.7 /CUMM (1.4-6.5); ABSOLUTE LYMPH COUNT 0.7 /CUMM (1.2-3.4); ABSOLUTE MONOCYTE COUNT 0.8 /CUMM (0.10-0.60); BASOPHIL % 0.1 % (0.0-2.0); EOSINOPHIL % 0.1 % (0-5); GRANULOCYTE % 78.5 % (42.2-75.2); HEMATOCRIT 40.5 % (42-52); MEAN CORPUSCULAR HGB 27.3 PG (27.0-31.0); MEAN CORPUSCULAR HGB CONC 33.2 G/DL (33.0-37.0); MEAN CORPUSCULAR VOLUME 82.2 FL (80.0-94.0); MEAN PLATELET VOLUME 8.6 FL (7.4-10.4); PLATELET COUNT 181 /CUMM (130-400); RBC DISTRIBUTION WIDTH 18.3 % (11.5-14.5); RED BLOOD CELL CT 4.93 /CUMM (4.70-6.10); WHITE BLOOD CELL COUNT 7.2 /CUMM (4.8-10.8)
[2016-05-18 04:21] VITALS: BP 168/74
--- NOTE | 2016-05-18 07:03 | PN- Housestaff ---
SAM SORIA,ANNA 05/18/16 0702: Subjective Follow-up For: Acute hypoxic respiratory failure Frequent falls Subjective: I saw and examined the patient today. He is sitting on the bed, denies any chest pain, shortness of breath, dizziness. He does reports feeling hungry. Overnight he had elevated trops, so started on IV heparin. He does have only mild jaw pain. Review of Systems Constitutional: Reports: see HPI. Comments: ROS negative except the above. Objective Last 24 Hrs of Vital Signs/I&O Vital Signs Date Time Temp Pulse Resp B/P Pulse O2 O2 Flow FiO2 Ox Delivery Rate 05/18 0432 60 162/74 05/18 0421 97.7 61 20 168/74 98 Nasal Cannula 05/17 1940 99.0 100 22 152/82 93 Nasal 3.0L Cannula 05/17 1929 Nasal 2.0L Cannula 05/17 1738 97.7 90 18 162/71 95 Nasal 2.0L Cannula 05/17 1700 96 Nasal 2.0L Cannula 05/17 1524 97.0 68 18 145/67 98 Nasal 2.0L Cannula 05/17 1225 97 Nasal 2.0L Cannula 05/17 1223 96.2 82 20 138/70 97 Nasal 2.0L Cannula Intake & Output 05/18 0800 05/18 0000 05/17 1600 Intake Total 320 300 0 Output Total 800 Balance -480 300 0 Intake, IV 120 0 Intake, Oral 200 300 0 Number 0 2 Bowel Movements Output, Urine 800 Patient 95.5 kg 95.5 kg 92.986 kg Weight Physical Exam General Appearance: Alert, Oriented X3, Cooperative, No Acute Distress Skin: No Rashes, No Breakdown HEENT: Atraumatic, PERRLA Neck: Supple, No JVD Cardiovascular: Regular Rate, Normal S1, Normal S2, No Murmurs Lungs: Clear to Auscultation, Normal Air Movement Abdomen: Normal Bowel Sounds, Soft, No Tenderness Neurological: Normal Gait, Normal Speech, Strength at 5/5 X4 Ext, Normal Tone Extremities: No Clubbing, No Cyanosis, 2+ edema over both the extremities Vascular: Normal Pulses, Pulses Symmetrical Current Medications: Current Medications Sig/Theodore Start time Last Medication Dose Route Stop Time Status Admin Acetaminophen 650 MG Q6P PRN 05/17 1929 AC PO Acetaminophen 1,000 MG Q6P PRN 03/27 1930 AC IV Albuterol Sulfate 3 ML Q4H PRN 05/17 1930 DC INH Albuterol Sulfate 3 ML ONCE ONE 05/17 1715 DC 05/17 INH 05/17 1716 1700 Albuterol Sulfate 3 ML ONCE ONE 05/17 1415 DC INH 05/17 1416 Azithromycin 500 MG ONCE ONE 05/17 1630 DC 05/17 Sodium Chloride 250 ML IV 05/17 1729 1701 Cholecalciferol 1,000 IU DAILY 05/18 1000 AC PO Diphenhydramine HCl 25 MG BID PRN 05/17 1815 AC PO Furosemide 40 MG 0800 & 1700 05/17 1815 AC 05/17 PO 2017 Gabapentin 100 MG BID 05/17 2200 AC 05/17 PO 2018 Heparin Sodium 25,000 UNIT Q24H 05/18 0415 AC 05/18 (Porcine) IV 0432 Sodium Chloride 500 ML Heparin Sodium 4,000 UNIT ONCE ONE 05/18 0415 DC 05/18 (Porcine) IV 05/18 0416 0432 Heparin Sodium 5,000 UNIT Q8 05/17 2200 DC 05/17 (Porcine) SC 2018 Hydrochlorothiazide 25 MG DAILY 05/18 1000 AC PO Insulin Aspart 0 TIDAC/HS 05/18 0800 CAN SC Insulin Detemir 60 UNITS DAILY 05/19 1000 UNVr SC Insulin Detemir 60 UNITS DAILY 05/18 1000 DC SC Insulin Detemir 35 UNITS ONCE ONE 05/18 1000 UNVr SC 05/18 1001 Insulin Human Regular 0 Q6 05/18 0659 UNVr SC Ipratropium Leonidas 2.5 ML ONCE ONE 05/17 1415 DC INH 05/17 1416 Losartan Potassium 100 MG 0900 05/18 0900 AC PO Methylprednisolone 40 MG Q8 05/18 0600 AC 05/18 IV 0426 Methylprednisolone 0 .STK-MED ONE 05/17 1521 DC .ROUTE Methylprednisolone 125 MG ONCE ONE 05/17 1415 DC 05/17 IV 05/17 1416 1527 Metoprolol Tartrate 5 MG Q12 05/18 0415 AC 05/18 IV 0432 Morphine Sulfate 1 MG Q6-PRN PRN 05/17 1930 AC IV Nitroglycerin 0.4 MG DAILY 05/18 0415 AC 05/18 TOP 0442 Pravastatin Sodium 80 MG 1700 05/18 1700 AC PO Ramelteon 8 MG 05/17 AC 05/17 PO 2018 Sertraline HCl 150 MG 05/17 AC 05/17 PO 2018 Trazodone HCl 150 MG AT BEDTIME NEED.. 05/17 2200 AC PO Last 24 Hrs of Lab/Chiki Results Last 24 Hrs of Labs/Mics: Laboratory Tests 05/18/16 1225: Troponin I 46.10 *H, APTT 41 H 05/18/16 0335: Troponin I 16.70 *H 05/18/16 0335: Anion Gap 15, Estimated GFR 50 L, BUN/Creatinine Ratio 27.1 H, CBC w Diff NO MAN DIFF REQ, RBC 4.93, MCV 82.2, MCH 27.3, RDW 18.3 H, MPV 8.6, Gran % 78.5 H , Lymphocytes % 10.3 L, Monocytes % 11.0 H, Eosinophils % 0.1, Basophils % 0.1 , Absolute Granulocytes 5.7, Absolute Lymphocytes 0.7 L, Absolute Monocytes 0.8 H, Absolute Eosinophils 0, Absolute Basophils 0, PUBS MCHC 33.2 05/18/16 0215: Troponin I 7.85 *H 05/17/162024: Troponin I 0.12 *H 05/17/162024: Lactic Acid 2.8 H 05/17/16 1655: pH 7.45, pCO2 37, pO2 96, HCO3 25, ABG O2 Sat (Measured) 96.0, P-50 (Temp Corrected) N, Carboxyhemoglobin 0.9 L, O2 Concentration % 2L, Temperature 97.0, O2 Delivery Method NC, Phlebotomy Draw Site RIGHT BRACHIAL 05/17/16 1439: Anion Gap 9, Estimated GFR 54 L, BUN/Creatinine Ratio 24.6, Glucose 240 H, Hemoglobin A1c 9.1 H, Lactic Acid 1.7, Calcium 11.1 H, Total Bilirubin 1.1, AST 23, ALT 41, Alkaline Phosphatase 62, Troponin I 0.10, Hmf-Y-Frufqpexnss Pept 1830 H, Total Protein 6.9, Albumin 4.1, Globulin 2.8, Albumin/Globulin Ratio 1.5, CBC w Diff NO MAN DIFF REQ, RBC 4.66 L, MCV 81.2, MCH 27.6, RDW 17.5 H, MPV 8.0, Gran % 69.0, Lymphocytes % 14.4 L, Monocytes % 15.4 H, Eosinophils % 1.1, Basophils % 0.1, Absolute Granulocytes 3.9, Absolute Lymphocytes 0.8 L, Absolute Monocytes 0.9 H, Absolute Eosinophils 0.1, Absolute Basophils 0, PUBS MCHC 34.0 Microbiology 05/18 0605 NASOPHARYN: Influenza Virus A & B Rapid Smear - COMP 05/17 1452 BLOOD: Blood Culture - RES 05/17 1439 BLOOD: Blood Culture - RES 05/17 1410 LOWER RESP: Respiratory Culture - COLB 05/17 141 LOWER RESP: Gram Stain - COLB Lines/Diet/Fluids Lines: peripheral lines Assessment/Plan Assessment: Patient is a 75-year-old gentleman with a PMH significant for HTN, HLD, 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 CHF. NSTEMI Patient was reportedly hypoxic on RA at the [facility]. Currently requiring 2 liters of oxygen via NC to maintain O2 sat abov 92%. BNP > 1800 oin admission. * Admit to telemetery unit * overnight his troponins increased from 0.10-->0.12-->7.85-->16.70--->46 * Cardiology recommended to transfer to other hospital, so transfered today afternoon for catheterization. * Still on IV lasix 40mg BID * Strict I&Os with daily weights # Frequent falls Patient has fallen 7 times in 2 weeks per the jag. Hennantly endorses left hip pain. * X-ray of th left hip is negative for fractures. * Follow echo # SHELDON Patient presents with a creatinine of 1.3 on admission. * Increased to creatinine 1.4 despite fluids. * Holding nephrotoxins. # Hypertension * Cont home meds HCTZ 25 mg daily and losartan 100 mg daily QAM # Type 2 diabetes mellitus * Hold oral hypoglycemics * Novolog SSI with accuchecks * Diabetic diet # Mood disorder and amnesia * Cont home meds Zoloft 100mg daily and Rozerm 8mp Qpm daily. * Consider resuming Trazodone dose 150 mg daily if needed # Diabetic diet # Mild pain pathway # DVTppx with SQH # DNR/I. Problem List: 1. Multiple falls 2. Hypokalemia 3. Leukocytosis 4. Cardiac pacemaker 5. Anemia Pain Ratin Pain Location: n/a Pain Goal: Pain 4 or less Pain Plan: tylenol prn Tomorrow's Labs & Rationales: none JASON GOODMAN 05/18/16 0941: Attending MD Review Statement Attending Statement Attending MD Statement: examined this patient, discuss w/resident/PA/WELL LOGGING CAPTAIN, agreed w/resident/PA/WELL LOGGING CAPTAIN, discussed with family, reviewed EMR data (avail), discussed with nursing, discussed with case mgmt, reviewed images Attending Assessment/Plan: 75 o/m with pmh of dm. htn pacemaker is being transferred for higher level of care, cardiac cath for NSTEMI, started on asa, brilinta, heparin drip, statin. cardiolgoy on board and planned transfer
--- NOTE | 2016-05-18 07:43 | Discharge Summary ---
See Addendum Visit Information Visit Dates Admission Date: 05/17/16 Discharge Date: 05/18/2016 Hospital Course Course Attending Physician: JASON GOODMAN MD Primary Care Physician: GEOFFREY SORIA,SUSIE Sarmiento Consulting Request: Consulting Specialty: Cardiology Consulting Physician: Dr. Barth Reason for Consult: Acute CHF with elevated troponin Hospital Course: Mr. Lord is a 75-year-old gentleman with a PMH significant for HTN, HLD, T2DM with neuropathy, depression/anxiety, adjustment disorder, last admitted in Nov 2015 for symptomatic bradycardia, returns from [facility] with chief complaints of dypsnea with cough and nasal congestion for the past 4-5 days. Per the patient and his daughter at bedside, he has been confused often and fallen very frequently recently, resulting in 7 mechanical falls over the past 2 weeks. The patient was admitted to telemetry and we managed her for the following conditions. Congestive heart failure Patient presented with shortness of breath. On presentation patient had elevated proBNP of 18,000 he had significant abdominal distention but no distended neck or lower limb edema. Patient started on IV Lasix daily weights and strict I&O's,patient required oxygen at 2 L to maintain saturation. Non-ST elevated myocardial infarction Initial troponin was negative but subsequent ones showed increased troponin to 7 and then 16. patient remained asymptomatic and there was no EKG changes. She was started on IV heparin and aspirin and Plavix. Patient was reviewed by mailing machine operator Dr. Peraza. We will transfer the patient to another facility for cardiac catheterization. Frequent falls Patient reported that she has fallen 7 times in the past 2 weeks. Falls not proceeded with dizziness or lightheadedness. Patient will be reviewed by physical therapist and probably get physical therapy treatment for his gait and strength building Acute kidney injury At baseline the patient has normal creatinine of around 0.9 however on admission had creatinine of 1.3. Even his CHF picture the patient was kept on IV Lasix and we avoided rehydration. A.m. repeated creatinine is 1.4. Continue to monitor renal function and avoid nephrotoxic medications. Type 2 diabetes mellitus Patient has history of diabetes mellitus and is on insulin and metformin at home. We held oral antidiabetic medication and started the patient on insulin sliding scale. Patient was made nothing by mouth for impending cath and put on insulin sliding scale nothing by mouth protocol. He is being discharged with instruction to continue with diabetes management. Complications: Elevated troponin Allergies: Coded Allergies: No Known Allergies (05/17/16) Disposition Summary Disposition Principal Diagnosis: Non-ST elevated myocardial infarction CHF COPD Frequent falls Additional Diagnosis: Diabetes mellitus Hypertension SHELDON Discharge Disposition: other general hospital Discharge Instructions General Discharge Information Code Status: Do Not Resucitate/Intubat Patient's Diet: Heart health CHF diet Patient's Activity: As tolerated Follow-Up Instructions/Appts: Please call and make a follow-up with her primary care physician within one week after discharge. Please call and make a follow-up with her mailing machine operator within 1 week after discharge Medications at Discharge Discharge Medications: Continue taking these medications: Metformin HCl (Metformin HCl ER) 500 MG [id number] 3 Tablet ORAL 1630 Qty = 90 Comments: NOT GIVEN Losartan Potassium (Losartan Potassium) 100 MG TABLET 1 Tablet ORAL 0900 Qty = 30 Comments: Last Taken: 05/18/16 Time: 0900 Pravastatin Sodium (Pravachol) 80 MG TABLET 1 Tablet ORAL 1630 Qty = 30 Comments: Last Taken: 05/17/16 Time: 8 PM Insulin Detemir (Levemir Flextouch) 100 UNIT/ML (3 ML) INSULN.PEN 85 Units Inject into fatty tissue 2100 Comments: 35 UNITS GIVEN 05/18/16 0900 Trazodone HCl (Trazodone HCl) 150 MG TABLET 1 Tablet ORAL TAKE AT BEDTIME as needed for SLEEP Comments: NOT GIVEN Sertraline HCl (Zoloft) 100 MG TABLET 1.5 Tablet ORAL 1999 Comments: Last Taken: 05/17/16 Time: 8 PM Cholecalciferol (Vitamin D3) (Vitamin D3) 1,000 UNIT CAPSULE 1 Capsule ORAL 09 Comments: Last Taken: 05/18/16 Time: 0900 Tramadol HCl (Tramadol HCl) 50 MG TABLET 1 Tablet ORAL EVERY 8 HOURS NEEDED as needed for PAIN Qty = 30 Comments: NOT GIVEN Ramelteon (Rozerem) 8 MG TABLET 1 Tablet ORAL 1999 Qty = 28 Comments: Last Taken: 05/17/16 Time: 8 PM Loperamide HCl (Imodium A-D) 2 MG TABLET 1 Tablet ORAL EVERY 4 HOURS NEEDED as needed for DIARRHEA Qty = 30 Comments: NOT GIVEN Diphenhydramine HCl (Benadryl) 25 MG CAPSULE 1 Capsule ORAL TWICE DAILY as needed for ITCHING Qty = 30 Comments: NOT GIVEN Acetaminophen (Acetaminophen) 325 MG TABLET 2 Tablet ORAL THREE TIMES DAILY as needed for PAIN/FEVER Comments: Last Taken: 05/18/16 Time: 0900 Gabapentin (Gabapentin) 100 MG CAPSULE 1 Capsule ORAL TWICE DAILY Comments: Last Taken: 05/18/16 Time: 0900 Hydrochlorothiazide (Hydrochlorothiazide) 25 MG TABLET 1 Tablet ORAL DAILY Comments: Last Taken: 05/18/16 Time: 0900 Insulin Lispro (Humalog Kwikpen U-100) 100 UNIT/ML INSULN.PEN 18 Units Inject into fatty tissue WITH MEALS Comments: NOT GIVEN Start taking the following new medications: Nitroglycerin (Nitroglycerin Patch) 0.4 MG/HOUR PATCH.TD24 0.4 Milligram On the skin DAILY Qty = 1 No Refills Comments: Last Taken: 05/18/16 Time: 445 AM Metoprolol Tartrate (Metoprolol Tartrate) 5 MG/5 ML VIAL 5 Milligram INTRAVEN EVERY 12 HOURS Qty = 1 No Refills Comments: Last Taken: 05/18/16 Time: 430 AM Heparin (Heparin-1/2NS 25,000 Units/500) 25,000 UNIT/500 ML (50 UNIT/ML) IV.SOLN 800 Units INTRAVEN CONTINUOUS INFUSION Qty = 1 No Refills Comments: 05/18/16 430 AM Copies To: GEOFFREY SORIA,SUSIE Sarmiento; CESAR SORIA,THEODORA
[2016-05-18] MEDS ORDERED: HEPARIN-1/25000 UNI1 IV (08:11)
--- NOTE | 2016-05-18 08:16 | Patient Discharge Instructions ---
Discharge Instructions General Discharge Information You were seen/treated for: CHF exacerbation NSTEMI Special Instructions: Please call and make a follow up with your PCP within one week after discharge Please call and make a follow up with your assembler equipment within one week after discharge Acute Coronary Syndrome Inclusion Criteria At DC or during hospital stay patient has or had the following: ACS DIAGNOSIS Yes Discharge Core Measures Meds if any: Prescribed or Continued at Discharge VIDA/ARB if EF <40% Yes Aspirin Yes Beta-Josue Yes Statin Yes Meds if any: NOT Prescribed or Continued at Discharge Congestive Heart Failure Inclusion Criteria At DC or during hospital stay patient has or had the following: CHF DIAGNOSIS Yes Discharge Core Measures Meds if any: Prescribed or Continued at Discharge VIDA/ARB for EF <40% Yes Meds if any: NOT Prescribed or Continued at Discharge Cerebrovascular accident Inclusion Criteria At DC or during hospital stay patient has or had the following: CVA/TIA Diagnosis No Discharge Core Measures Meds if any: Prescribed or Continued at Discharge Meds if any: NOT Prescribed or Continued at Discharge Venous thromboembolism Inclusion Criteria VTE Diagnosis No VTE Type NONE VTE Confirmed by (Test) NONE Discharge Core Measures - Per Current guidelines, there needs to be overlap - treatment for the first 5 days of Warfarin therapy. - If discharged on Warfarin prior to 5 days of - overlap therapy, the patient will need to be - assessed for post discharge needs including - *Post discharge parental anticoagulation - *Warfarin and/or parental anticoagulation education - *Follow up date to check INR post discharge At least 5 days overlap therapy as Inpatient No Meds if any: Prescribed or Continued at Discharge Note: Overlap Therapy is Warfarin and Anticoagulant Meds if any: NOT Prescribed or Continued at Discharge
[2016-05-18 08:36] VITALS: BP 171/89
--- NOTE | 2016-05-18 09:25 | Cons- Cardiology ---
General Information and HPI Consulting Request Date of Consult: 05/18/16 Requested By: JASON GOODMAN MD Reason for Consult: Positive troponin Source of Information: patient, old records Exam Limitations: poor historian History of Present Illness: The patient is a 75 old male with a history of hypertension, hyperlipidemia, diabetes, recent pacemaker insertion for sick sinus syndrome, anxiety and depression, aortic stenosis who presents with recurrent falls and jaw pain. The patient is a poor historian therefore the information is obtained from the history and physical. According to the patient's daughter he lives at assisted living facility and has had recurrent falls over the past few weeks. He reportedly her mechanical falls without evidence of syncope. He reportedly becomes weak in the knees and falls to the ground. The patient states that he is aware of these falls. The patient was brought to the emergency room where he complained of jaw pain. Initial troponin was negative but then peaked to 11. He denied chest pain but did describe mild shortness of breath. He states that the jaw pain has since resolved. The patient's most recent echocardiogram was performed December 2015 demonstrated ejection fraction of 50% and moderate to severe aortic stenosis with an aortic valve area 1.1. His pacemaker was inserted for symptomatic bradycardia. Allergies/Medications Allergies: Coded Allergies: No Known Allergies (05/17/16) Home Med List: Acetaminophen 325 MG TABLET 2 TAB PO TID PRN PAIN/FEVER (Reported) Cholecalciferol (Vitamin D3) (Vitamin D3) 1,000 UNIT CAPSULE 1 CAP PO 0900 SUPPLEMENT (Reported) Diphenhydramine HCl (Benadryl) 25 MG CAPSULE 1 CAP PO BID PRN ITCHING ( Reported) Gabapentin 100 MG CAPSULE 1 CAP PO BID UNKNOWN (Reported) Hydrochlorothiazide 25 MG TABLET 1 TAB PO DAILY BP/DIURETIC (Reported) Insulin Detemir (Levemir Flextouch) 100 UNIT/ML (3 ML) INSULN.PEN 85 U SC 2100 DIABETES (Reported) Insulin Lispro (Humalog Kwikpen U-100) 100 UNIT/ML INSULN.PEN 18 UNITS SC WM DM (Reported) Loperamide HCl (Imodium A-D) 2 MG TABLET 1 TAB PO Q4P PRN DIARRHEA (Reported) Losartan Potassium 100 MG TABLET 1 TAB PO 0900 HTN (Reported) Metformin HCl (Metformin HCl ER) 500 MG [id number] 3 TAB PO 1630 DIABETES ( Reported) Pravastatin Sodium (Pravachol) 80 MG TABLET 1 TAB PO 1630 CHOLESTEROL ( Reported) Ramelteon (Rozerem) 8 MG TABLET 1 TAB PO 2000 SLEEP (Reported) Sertraline HCl (Zoloft) 100 MG TABLET 1.5 TAB PO 2000 MENTAL HEALTH (Reported ) Tramadol HCl 50 MG TABLET 1 TAB PO Q8P PRN PAIN (Reported) Trazodone HCl 150 MG TABLET 1 TAB PO QHS PRN SLEEP (Reported) Current Medications: Current Medications Sig/Theodore Start time Last Medication Dose Route Stop Time Status Admin Acetaminophen 650 MG Q6P PRN 05/17 1930 AC PO Acetaminophen 1,000 MG Q6P PRN 05/17 1930 AC IV Albuterol Sulfate 3 ML Q4H PRN 05/17 1930 DC INH Albuterol Sulfate 3 ML ONCE ONE 05/17 1715 DC 05/17 INH 05/17 1716 1700 Albuterol Sulfate 3 ML ONCE ONE 05/17 1415 DC INH 05/17 1416 Azithromycin 500 MG ONCE ONE 05/17 1630 DC 05/17 Sodium Chloride 250 ML IV 05/17 1729 1701 Cholecalciferol 1,000 IU DAILY 05/18 1000 AC PO Diphenhydramine HCl 25 MG BID PRN 05/17 1815 AC PO Furosemide 40 MG 0800 & 1700 05/17 1815 AC 05/17 PO 2017 Gabapentin 100 MG BID 05/17 2200 AC 05/17 PO 2018 Heparin Sodium 25,000 UNIT Q24H 05/18 0415 AC 05/18 (Porcine) IV 0432 Sodium Chloride 500 ML Heparin Sodium 4,000 UNIT ONCE ONE 05/18 0415 DC 05/18 (Porcine) IV 05/18 0416 0432 Heparin Sodium 5,000 UNIT Q8 05/17 2200 DC 05/17 (Porcine) SC 2018 Hydrochlorothiazide 25 MG DAILY 05/18 1000 AC PO Insulin Aspart 0 TIDAC/HS 05/18 0800 CAN SC Insulin Detemir 60 UNITS DAILY 05/19 1000 AC SC Insulin Detemir 60 UNITS DAILY 05/18 1000 DC SC Insulin Detemir 35 UNITS ONCE ONE 05/18 1000 AC SC 05/18 1001 Insulin Human Regular 0 Q6 05/18 0659 AC SC Ipratropium [place] 2.5 ML ONCE ONE 05/17 1415 DC INH 05/17 1416 Losartan Potassium 100 MG 0900 05/18 0900 AC PO Methylprednisolone 40 MG Q8 05/18 0600 05/18 IV 0426 Methylprednisolone 0 .STK-MED ONE 05/17 1521 DC .ROUTE Methylprednisolone 125 MG ONCE ONE 05/17 1415 DC 05/17 IV 05/17 1416 1527 Metoprolol Tartrate 5 MG Q12 05/18 0415 AC 05/18 IV 0432 Morphine Sulfate 1 MG Q6-PRN PRN 05/17 1930 AC IV Nitroglycerin 0.4 MG DAILY 05/18 0415 05/18 TOP 0442 Pravastatin Sodium 80 MG 1700 05/18 1700 AC PO Ramelteon 8 MG 05/17 AC 05/17 PO 2018 Sertraline HCl 150 MG 05/17 AC 05/17 PO 2018 Trazodone HCl 150 MG AT BEDTIME NEED.. 05/17 220 AC PO Review of Systems Review of Systems: Eyes no blurred or double vision Ears no deafness or ringing Nose and throat no recurrent sinusitis Lungs per history of present illness Heart per history of present illness Abdomen no nausea vomiting Musculoskeletal occasional muscle and joint pains Psych history of anxiety and depression lives in assisted living facility Neuro without recurrent headache or seizures Endocrine no heat or cold intolerance Past History Travel History Traveled to [place] past 21 day No Medical History Blood Transfusion Hx: No Neurological: MEMORY NEUROPATHY EENT: NONE Cardiovascular: hypertension Respiratory: NONE Gastrointestinal: NONE Hepatic: NONE Renal: NONE Musculoskeletal: CHRONIC R SHOULDER Psychiatric: anxiety, depression, ADJUSTMENT DISORDER Endocrine: diabetes Blood Disorders: NONE Cancer(s): NONE OSTEOPATHIC RESIDENT/Reproductive: NONE Surgical History Surgical History: Right shoulder repair Family History Relations & Conditions If Any: BROTHER Cardiac pacemaker Sinus bradycardia Relation not specified for: Diabetes mellitus FH: hypertension FH: myocardial infarction Psychosocial History Where Do You Live? Assisted Living Who Do You Live With? self Services at Home: None Primary Language: Slovak Smoking Status: Former Smoker ETOH Use: denies use Illicit Drug Use: denies illicit drug use Living Will? unknown Functional Ability ADLs Independent: dressing, eating, toileting, bathing. Ambulation: Walker was instructed to him but has not used it IADLs Independent: food prep, telephone. Needs Assist: shopping, housework, finances, transportation, medication admin. Exam & Diagnostic Data Vital Signs and I&O Vital Signs Date Time Temp Pulse Resp B/P Pulse O2 O2 Flow FiO2 Ox Delivery Rate 05/18 0836 98.6 73 18 171/89 92 Nasal 3.0L Cannula 05/18 0432 60 162/74 05/18 0421 97.7 61 20 168/74 98 Nasal Cannula 05/17 1940 99.0 100 22 152/82 93 Nasal 3.0L Cannula 05/17 1930 Nasal 2.0L Cannula 05/17 1738 97.7 90 18 162/71 95 Nasal 2.0L Cannula 05/17 1700 96 Nasal 2.0L Cannula 05/17 1524 97.0 68 18 145/67 98 Nasal 2.0L Cannula 05/17 1225 97 Nasal 2.0L Cannula 05/17 1223 96.2 82 20 138/70 97 Nasal 2.0L Cannula Intake & Output 05/18 1600 05/18 0800 05/18 0000 05/17 1600 05/17 0800 05/17 0000 Intake Total 320 300 0 Output Total 800 Balance -480 300 0 Intake, IV 120 0 Intake, Oral 200 300 0 Number 0 2 Bowel Movements Output, Urine 800 Patient 211 lb 211 lb 205 lb Weight Physical Exam: Patient is a well-developed well-nourished male appearing in no acute distress HEENT is unremarkable Neck is supple there is no JVD Lungs are clear Heart regular rhythm S1 and S2 are normal no gallops or rubs over 6 systolic ejection murmur at the right upper sternal border Abdomen bowel sounds positive Extremities without edema Labs/Chiki Results: Laboratory Tests 05/18 05/18 05/18 0335 0335 0215 Chemistry Sodium (137 - 145 mmol/L) 138 Potassium (3.5 - 5.1 mmol/L) 5.1 Chloride (98 - 107 mmol/L) 96 L Carbon Dioxide (22 - 30 mmol/L) 27 Anion Gap (5 - 16) 15 BUN (9 - 20 mg/dL) 38 H Creatinine (0.7 - 1.2 mg/dL) 1.4 H Estimated GFR (>60 ml/min) 50 L BUN/Creatinine Ratio (7 - 25 %) 27.1 H Troponin I (<0.11 ng/ml) 16.70 *H 7.85 *H Hematology CBC w Diff NO MAN DIFF REQ WBC (4.8 - 10.8 /CUMM) 7.2 RBC (4.70 - 6.10 /CUMM) 4.93 Hgb (14.0 - 18.0 G/DL) 13.4 L Hct (42 - 52 %) 40.5 L MCV (80.0 - 94.0 FL) 82.2 MCH (27.0 - 31.0 PG) 27.3 RDW (11.5 - 14.5 %) 18.3 H Plt Count (130 - 400 /CUMM) 181 MPV (7.4 - 10.4 FL) 8.6 Gran % (42.2 - 75.2 %) 78.5 H Lymphocytes % (20.5 - 51.1 %) 10.3 L Monocytes % (1.7 - 9.3 %) 11.0 H Eosinophils % (0 - 5 %) 0.1 Basophils % (0.0 - 2.0 %) 0.1 Absolute Granulocytes (1.4 - 6.5 /CUMM) 5.7 Absolute Lymphocytes (1.2 - 3.4 /CUMM) 0.7 L Absolute Monocytes (0.10 - 0.60 /CUMM) 0.8 H Absolute Eosinophils (0.0 - 0.7 /CUMM) 0 Absolute Basophils (0.0 - 0.2 /CUMM) 0 PUBS MCHC (33.0 - 37.0 G/DL) 33.2 05/17 1655 Blood Gas pH (7.35 - 7.45 PH) 7.45 pCO2 (35 - 45 TORR) 37 pO2 (80 - 100 TORR) 96 HCO3 (21 - 28 MEQ/L) 25 ABG O2 Sat (Measured) (>96.0 %) 96.0 P-50 (Temp Corrected) N Carboxyhemoglobin (1.5 - 5.0 %) 0.9 L O2 Concentration % 2L Temperature (97.0 - 100.0 FARH) 97.0 O2 Delivery Method NC Chemistry Lactic Acid (0.7 - 2.1 mmol/L) 2.8 H Troponin I (<0.11 ng/ml) 0.12 *H Miscellaneous Phlebotomy Draw Site RIGHT BRACHIAL 05/17 1439 Chemistry Sodium (137 - 145 mmol/L) 135 L Potassium (3.5 - 5.1 mmol/L) 4.7 Chloride (98 - 107 mmol/L) 95 L Carbon Dioxide (22 - 30 mmol/L) 31 H Anion Gap (5 - 16) 9 BUN (9 - 20 mg/dL) 32 H Creatinine (0.7 - 1.2 mg/dL) 1.3 H Estimated GFR (>60 ml/min) 54 L BUN/Creatinine Ratio (7 - 25 %) 24.6 Glucose (65 - 99 mg/dL) 240 H Hemoglobin A1c (4.2 - 5.8 %) Pending Lactic Acid (0.7 - 2.1 mmol/L) 1.7 Calcium (8.4 - 10.2 mg/dL) 11.1 H Total Bilirubin (0.2 - 1.3 mg/dL) 1.1 AST (17 - 59 U/L) 23 ALT (21 - 72 U/L) 41 Alkaline Phosphatase (< 127 U/L) 62 Troponin I (<0.11 ng/ml) 0.10 [id number] Pept (<125 pg/mL) 1830 H Total Protein (6.3 - 8.2 g/dL) 6.9 Albumin (3.5 - 5.0 g/dL) 4.1 Globulin (1.9 - 4.2 gm/dL) 2.8 Albumin/Globulin Ratio (1.1 - 2.2 %) 1.5 Hematology CBC w Diff NO MAN DIFF REQ WBC (4.8 - 10.8 /CUMM) 5.7 RBC (4.70 - 6.10 /CUMM) 4.66 L Hgb (14.0 - 18.0 G/DL) 12.9 L Hct (42 - 52 %) 37.9 L MCV (80.0 - 94.0 FL) 81.2 MCH (27.0 - 31.0 PG) 27.6 RDW (11.5 - 14.5 %) 17.5 H Plt Count (130 - 400 /CUMM) 160 MPV (7.4 - 10.4 FL) 8.0 Gran % (42.2 - 75.2 %) 69.0 Lymphocytes % (20.5 - 51.1 %) 14.4 L Monocytes % (1.7 - 9.3 %) 15.4 H Eosinophils % (0 - 5 %) 1.1 Basophils % (0.0 - 2.0 %) 0.1 Absolute Granulocytes (1.4 - 6.5 /CUMM) 3.9 Absolute Lymphocytes (1.2 - 3.4 /CUMM) 0.8 L Absolute Monocytes (0.10 - 0.60 /CUMM) 0.9 H Absolute Eosinophils (0.0 - 0.7 /CUMM) 0.1 Absolute Basophils (0.0 - 0.2 /CUMM) 0 PUBS MCHC (33.0 - 37.0 G/DL) 34.0 Diagnostic Data EKG Results Ventricular paced rhythm CXR Results IMPRESSION: No acute pulmonary disease. Assessment/Plan Assessment/Plan 1. Acute non-ST elevation myocardial infarction with elevated troponins and jaw pain. EKG demonstrated paced rhythm. 2. Moderate to severe aortic stenosis with an aortic valve area of 1.1 by echocardiogram December 2015 3. Hypertension 4. Symptomatic bradycardia status post pacemaker 5. Diabetes 6. History of anxiety and depression 7. Mild renal insufficiency Recommendations 1. As discussed with residents will plan to load with Brilinta 180 mg along with aspirin 325 if he has not received it 2. Continue heparin 3. Given his mild renal insufficiency recommend gentle hydration 4. I discussed the plan of care with his daughter Lorie. Plan is to transfer him to [facility] for urgent cardiac catheterization. The hospitalists have been notified. Thank you for allowing [facility] to participate in the care of your patient. Consult Acknowledgment - Thank you for your consult request.
[2016-05-18] MEDS ORDERED: METOPROLOL5 MG/5 M2 IV (11:06)
[2016-05-18] MEDS ORDERED: NITROGLYCERIN1 EACH TOP (11:07)
[2016-05-18 12:59] LABS: PTT 41 SEC (25-37)
== END 2016-05-18 13:38 | disposition short-term general hospital (02) | DRG 282 ==
LOC: ENRESERVDT → CANRESERV → ENRESERVTM → ERH 12:20 → 1NO 16:26 → ERHI 16:26 → ENPENDDIS 16:26 → EDBEDREQ 17:44 → 1NO 19:17
PROVIDERS: Physician Assistant; Preventive Medicine Public Health & General Preventive Medicine; ADMIT Internal Medicine
DX: I21.4 Non-ST elevation (NSTEMI) myocardial infarction (principal); E11.40 Type 2 diabetes mellitus with diabetic neuropathy, unspecified; I35.0 Nonrheumatic aortic (valve) stenosis; I10 Essential (primary) hypertension; Z79.4 Long term (current) use of insulin; Z79.84 Long term (current) use of oral hypoglycemic drugs; E78.5 Hyperlipidemia, unspecified; Z87.891 Personal history of nicotine dependence; F39 Unspecified mood [affective] disorder; Z66 Do not resuscitate; Z95.0 Presence of cardiac pacemaker; F41.8 Other specified anxiety disorders; Z91.81 History of falling
CPT/HCPCS: 1NP; 36415; 82436; 87040; 87070; 87804; 87804-59; 93005; 93010; 96374; J0131; J0456; J1644; J1815; J2920; J2930; J3490; J7040

== ENCOUNTER 2016-06-03 14:35 | Emergency (ER) | payer OTHER ==
[~2016-06-03] VITALS: Ht 175.3 cm; Wt 147.4 kg
[~2016-06-03 14:35] MED LIST changes: +HEPARIN-1/25000 UNI1 IV; +METOPROLOL5 MG/5 M2 IV; +NITROGLYCERIN1 EACH TOP
--- NOTE | 2016-06-03 14:48 | ED CARDIAC/CP/PALPITATIONS ---
History of Present Illness General Chief Complaint: General Adult Stated Complaint: BIBA "I FEEL TIRED" Source: patient, old records, EMS Exam Limitations: poor historian Vital Signs & Intake/Output Vital Signs & Intake/Output Vital Signs Date Time Temp Pulse Resp B/P Pulse O2 O2 Flow FiO2 Ox Delivery Rate 06/03 1753 97.6 97 16 126/64 94 Room Air 06/03 1607 Room Air 06/03 1439 96.5 73 18 129/70 99 Room Air Allergies Coded Allergies: No Known Allergies (05/17/16) Reconcile Medications Acetaminophen 325 MG TABLET 2 TAB PO TID PRN PAIN/FEVER (Reported) Cholecalciferol (Vitamin D3) (Vitamin D3) 1,000 UNIT CAPSULE 1 CAP PO 0900 SUPPLEMENT (Reported) Diphenhydramine HCl (Benadryl) 25 MG CAPSULE 1 CAP PO BID PRN ITCHING ( Reported) Gabapentin 100 MG CAPSULE 1 CAP PO BID UNKNOWN (Reported) Heparin (Heparin-1/2NS 25,000 Units/500) 25,000 UNIT/500 ML (50 UNIT/ML) IV.SOLN 800 UNITS IV CONTINOUS INFUSION NSTEMI Hydrochlorothiazide 25 MG TABLET 1 TAB PO DAILY BP/DIURETIC (Reported) Insulin Detemir (Levemir Flextouch) 100 UNIT/ML (3 ML) INSULN.PEN 85 U SC 2100 DIABETES (Reported) Insulin Lispro (Humalog Kwikpen U-100) 100 UNIT/ML INSULN.PEN 18 UNITS SC WM DM (Reported) Loperamide HCl (Imodium A-D) 2 MG TABLET 1 TAB PO Q4P PRN DIARRHEA (Reported) Losartan Potassium 100 MG TABLET 1 TAB PO 0900 HTN (Reported) Metformin HCl (Metformin HCl ER) 500 MG [id number] 3 TAB PO 1630 DIABETES ( Reported) Metoprolol Tartrate 5 MG/5 ML VIAL 5 MG IV Q12 HEART HEALTH Nitroglycerin (Nitroglycerin Patch) 0.4 MG/HOUR PATCH.TD24 0.4 MG TOP DAILY NSTEMI Pravastatin Sodium (Pravachol) 80 MG TABLET 1 TAB PO 1630 CHOLESTEROL ( Reported) Ramelteon (Rozerem) 8 MG TABLET 1 TAB PO 2000 SLEEP (Reported) Sertraline HCl (Zoloft) 100 MG TABLET 1.5 TAB PO 2000 MENTAL HEALTH (Reported ) Tramadol HCl 50 MG TABLET 1 TAB PO Q8P PRN PAIN (Reported) Trazodone HCl 150 MG TABLET 1 TAB PO QHS PRN SLEEP (Reported) Triage Nurses Notes Reviewed? yes HPI: Patient is a 75-year-old male brought in by ambulance for reported chest pain. Patient reports that he had chest pain for approximately 5 minutes that resolved on its own patient notified the senior living facility staff and they called 911. Patient is unable to say exactly when the pain began and resolved. Pain was midsternal/left sternal, patient is unable to describe the characteristics of the pain or whether was radiating. Patient was diagnosed with a non-ST elevation myocardial infarction on May 18 [facility]. Patient does not remember who his body care manager is. Patient denies dyspnea, nausea, vomiting, diaphoresis, lower extremity pain, lower extremity edema. (COREY VERNON) Past History Travel History Traveled to [place] past 21 day No Medical History Any Pertinent Medical History? 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 No (COREY VERNON) Review of Systems Review of Systems Constitutional: Reports: no symptoms. EENTM: Reports: no symptoms. Respiratory: Denies: cough, short of breath. Cardiovascular: Reports: chest pain (none currently). Denies: palpitations, peripheral edema. GI: Denies: abdominal pain, nausea, vomiting. Genitourinary: Reports: no symptoms. Musculoskeletal: Reports: no symptoms. Skin: Reports: no symptoms. Neurological/Psychological: Reports: no symptoms. Hematologic/Endocrine: Reports: polydipsia. Immunologic/Allergic: Reports: no symptoms. (COREY VERNON) Physical Exam Physical Exam General Appearance: well developed/nourished, alert, awake Head: atraumatic, normal appearance Eyes: Bilateral: normal appearance, PERRL, EOMI. Ears, Nose, Throat: normal pharynx, normal ENT inspection, hearing grossly normal Neck: normal inspection, supple, full range of motion Respiratory: normal breath sounds, chest non-tender, no respiratory distress, lungs clear Cardiovascular: regular rate/rhythm Gastrointestinal: normal bowel sounds, soft, non-tender Back: normal inspection, normal range of motion Extremities: normal inspection, normal capillary refill, normal range of motion, no edema Neurologic/Psych: awake, alert, oriented x 3, normal gait, normal mood/affect Skin: intact, normal color, warm/dry Lymphatic: no anterior cervical mary Core Measures ACS in differential dx? Yes ASA ordered for poss ACS? No-ACS ruled out Severe Sepsis Present: No Septic Shock Present: No (COREY VERNON) Progress Differential Diagnosis: AMI, aortic dissection, CHF/pulm edema, musculoskeletal pain, pericarditis, pneumonia, pulmonary embolism, PUD/GERD, unstable angina, V- fib/V-Tach Plan of Care: Orders Procedure Date/time Status EKG 06/03 1648 Active CBC WITHOUT DIFFERENTIAL 06/03 1608 Active FingerStick- Glucose 06/03 1451 Active EKG 06/03 1448 Active Telemetry/Author Agent 06/03 1447 Active TROPONIN LEVEL 06/03 1447 Complete COMPREHENSIVE METABOLIC PANEL 06/03 1447 Complete Laboratory Tests 06/03/16 1547: Anion Gap 14, Estimated GFR 54 L, BUN/Creatinine Ratio 35.4 H, Glucose 189 H, Calcium 11.0 H, Total Bilirubin 1.2, AST 35, ALT 45, Alkaline Phosphatase 73, Troponin I 0.01, Total Protein 8.2, Albumin 4.5, Globulin 3.7, Albumin/Globulin Ratio 1.2 06/03/2016 4:48:52 PM: Patient refusing further blood work. Discussed with and evaluated by Dr. Worley: repeat ekg, patient is in a monitored setting, if continues to refuse repeat troponin then can discharge back to senior living facility. 06/03/2016 5:35:38 PM: Patient continues to decline further blood work. Discussed with patient that heart attack could not definitively be ruled out without repeat blood work. Patient declining. Patient has been symptom-free in the emergency department. Patient is alert and oriented, instructed to return immediately if any chest pain returns. (COREY VERNON) Diagnostic Imaging: Viewed by Me: Radiology Read. Discussed w/RAD: Radiology Read. CXR Impression: PATIENT: ELOY LI PRESENT AGE: 75 PATIENT ACCOUNT NO: [id number] : 42 LOCATION: [facility] ORDERING PHYSICIAN: COREY NICHOLSON SERVICE DATE: 06/03/16 EXAM TYPE: RAD - XRY-PORTABLE CHEST XRAY EXAMINATION: XR PORTABLE CHEST CLINICAL INFORMATION: Chest pain. COMPARISON: Chest x-ray 05/17/2016 TECHNIQUE: Portable AP view of the chest was obtained. 3:05 PM FINDINGS: No change in pacemaker leads in right atrium and right ventricle. Heart size is normal. There are calcifications of thoracic aorta. No pulmonary vascular congestion. Lungs are clear. There is no pleural effusion. Patient has had a right shoulder replacement IMPRESSION: No acute change of the chest. DICTATED BY: BAILEY SMALLWOOD MD DATE/TIME DICTATED:06/03 PICK UP:ERIKA DATE/TIME TRANSCRIBED:06/03/161525 CONFIDENTIAL, DO NOT COPY WITHOUT APPROPRIATE AUTHORIZATION. <Electronically signed in Other Vendor System> SIGNED BY: BAILEY SMALLWOOD MD 06/03/16 1531 Initial ED EKG: pacemaker rhythm Prior EKG: unchanged Rhythm Strip: pacemaker rhythm (COREY VERNON) Departure Departure Disposition: ACUTE REHAB FACILITY Condition: Stable Clinical Impression Primary Impression: Chest pain Qualifiers: Chest pain type: unspecified Qualified Code: R07.9 - Chest pain, unspecified Referrals: GEOFFREY SORIA,SUSIE Sarmiento (PCP/Family) Additional Instructions: Follow up with your body care manager this week or early next week for further evaluation. Return to the ER if chest pain returns, difficulty breathing or worsening of symptoms. Departure Forms: Customer Survey General Discharge Information (COREY VERNON) PA/BURGLAR ALARM MECHANIC Co-Sign Statement Statement: ED Attending supervision documentation- [X] I saw and evaluated the patient. I have also reviewed all the pertinent lab results and diagnostic results. I agree with the findings and the plan of care as documented in the PA's/BURGLAR ALARM MECHANIC's documentation. [] I have reviewed the ED Record and agree with the PA's/BURGLAR ALARM MECHANIC's documentation. [] Additions or exceptions (if any) to the PAs/BURGLAR ALARM MECHANIC's note and plan are summarized below: [] (SOUMYA DO,ARACELIS L.) Critical Care Note Critical Care Note Critical Care Time: non-applicable (HODA NICHOLSON,COREY)
--- NOTE | 2016-06-03 15:31 | RADIOLOGY REPORT ---
EXAMINATION: XR PORTABLE CHEST CLINICAL INFORMATION: Chest pain. COMPARISON: Chest x-ray 05/17/2016 TECHNIQUE: Portable AP view of the chest was obtained. 3:05 PM FINDINGS: No change in pacemaker leads in right atrium and right ventricle. Heart size is normal. There are calcifications of thoracic aorta. No pulmonary vascular congestion. Lungs are clear. There is no pleural effusion. Patient has had a right shoulder replacement IMPRESSION: No acute change of the chest.
[2016-06-03 17:53] VITALS: BP 126/64
== END 2016-06-03 17:54 ==
LOC: ERH 14:35
DX: R07.9 Chest pain, unspecified (principal); I10 Essential (primary) hypertension; E11.9 Type 2 diabetes mellitus without complications; Z79.4 Long term (current) use of insulin
CPT/HCPCS: 93005; 93010

== ENCOUNTER 2016-06-07 08:36 | Emergency (ER) | payer OTHER ==
[~2016-06-07] VITALS: Ht 177.8 cm; Wt 93.0 kg
--- NOTE | 2016-06-07 08:37 | ED MVC/FALL/TRAUMA COMPLAINT ---
History of Present Illness General Chief Complaint: Fall Stated Complaint: FALL Source: patient, old records, EMS Exam Limitations: clinical condition Vital Signs & Intake/Output Vital Signs & Intake/Output Vital Signs Date Time Temp Pulse Resp B/P Pulse O2 O2 Flow FiO2 Ox Delivery Rate 06/07 1404 96.6 62 15 137/63 95 Room Air Room Air ED Intake and Output 06/08 0000 06/07 1200 Intake Total Output Total 200 Balance -200 Output, Urine 200 Patient 205 lb Weight Allergies Coded Allergies: No Known Allergies (06/07/16) Reconcile Medications Acetaminophen 325 MG TABLET 2 TAB PO TID PRN PAIN/FEVER (Reported) Cholecalciferol (Vitamin D3) (Vitamin D3) 1,000 UNIT CAPSULE 1 CAP PO 0900 SUPPLEMENT (Reported) Diphenhydramine HCl (Benadryl) 25 MG CAPSULE 1 CAP PO BID PRN ITCHING ( Reported) Gabapentin 100 MG CAPSULE 1 CAP PO BID UNKNOWN (Reported) Hydrochlorothiazide 25 MG TABLET 1 TAB PO DAILY BP/DIURETIC (Reported) Insulin Detemir (Levemir Flextouch) 100 UNIT/ML (3 ML) INSULN.PEN 85 U SC 2100 DIABETES (Reported) Insulin Lispro (Humalog Kwikpen U-100) 100 UNIT/ML INSULN.PEN 18 UNITS SC WM DM (Reported) Loperamide HCl (Imodium A-D) 2 MG TABLET 1 TAB PO Q4P PRN DIARRHEA (Reported) Losartan Potassium 100 MG TABLET 1 TAB PO 0900 HTN (Reported) Metformin HCl (Metformin HCl ER) 500 MG [id number] 3 TAB PO 1630 DIABETES ( Reported) Nitroglycerin (Nitroglycerin Patch) 0.4 MG/HOUR PATCH.TD24 0.4 MG TOP DAILY NSTEMI Pravastatin Sodium (Pravachol) 80 MG TABLET 1 TAB PO 1630 CHOLESTEROL ( Reported) Ramelteon (Rozerem) 8 MG TABLET 1 TAB PO 2000 SLEEP (Reported) Sertraline HCl (Zoloft) 100 MG TABLET 1.5 TAB PO 2000 MENTAL HEALTH (Reported ) Tramadol HCl 50 MG TABLET 1 TAB PO Q8P PRN PAIN (Reported) Trazodone HCl 150 MG TABLET 1 TAB PO QHS PRN SLEEP (Reported) Triage Nurses Notes Reviewed? yes Onset: Abrupt Duration: hour(s): (1) Timing: single episode today Severity: mild, moderate Method of Injury: LOST BALANCE Loss of Consciousness: no loss of consciousness Modifying Factors: Improves With: movement. HPI: This is a 75-year-old male presents to ER for chief complaint of right shoulder pain after trip and fall this morning just prior to arrival. He arrives by EMS from assisted living. He states he was using his cane but slipped on water and hit the ground. Denies hitting his head or losing consciousness. Denies any chest pain or shortness of breath. Patient was recently here in the in the ER evaluated for chest pain and left AGAINST MEDICAL ADVICE. Denies any blurred vision, headache, neck pain, chest pain, shortness breath or abdominal pain. States that he has history of previous right shoulder surgery. Past History Medical History Any Pertinent Medical History? 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 No Review of Systems Review of Systems Constitutional: Denies: chills, fever. Eyes: Denies: blurred vision. Ears, Nose, Throat, Mouth: Reports: no symptoms. Respiratory: Denies: cough, short of breath, sputum production. Cardiovascular: Denies: chest pain, palpitations. Gastrointestinal/Abdominal: Denies: abdominal pain. Genitourinary: Reports: no symptoms. Musculoskeletal: Reports: joint pain, muscle pain. Denies: muscle stiffness. Skin: Reports: no symptoms. Neurological/Psychological: Reports: ataxia. Denies: anxiety. All Other Systems: Reviewed and Negative Physical Exam Physical Exam General Appearance: well developed/nourished, alert, awake, mild distress Head: atraumatic, normal appearance Eyes: Bilateral: normal appearance, PERRL, EOMI. Ears, Nose, Throat, Mouth: hearing grossly normal, moist mucous membrane Neck: normal inspection, supple, full range of motion Respiratory: normal breath sounds, chest non-tender, no respiratory distress Cardiovascular: regular rate/rhythm Peripheral Pulses: 2+ radial (R), 2+ radial (L) Gastrointestinal: soft, non-tender Extremities: PAIN WITH RANGE OF MOTION RIGHT SHOULDER OLD SURGICAL SCAR NO ECCHYMOSES OR STEPOFF Neurologic/Psych: no motor/sensory deficits, awake, alert, oriented x 3 Skin: intact, normal color, warm/dry Core Measures ACS in differential dx? No Severe Sepsis Present: No Septic Shock Present: No Progress Differential Diagnosis: ext injury, pnemothorax, SHOULDER FRACTURE, DISLOCATION, RIB FRACTURE, ANEMIA, SHELDON Plan of Care: Orders Procedure Date/time Status Consistent Carbohydrate 1 06/07 D Active Laboratory Tests 06/07/16 1120: Urine Opiates Screen < 100.00, Methadone Screen 48, Barbiturate Screen < 60, Ur Phencyclidine Scrn < 6.00, Amphetamines Screen < 100, U Benzodiazepines Scrn < 85, Urine Cocaine Screen < 50, Urine Cannabis Screen < 5.00, Urinalysis HEAVY H , Urine Color YEL, Urine Clarity HAZY H, Urine pH 5.5, Ur Specific [place] >= 1.030, Urine Protein 100 H, Urine Ketones NEG, Urine Nitrite NEG, Urine Bilirubin NEG, Urine Urobilinogen 0.2, Ur Leukocyte Esterase NEG, Ur Microscopic SEDIMENT EXAMINED, Urine RBC 1-3, Urine WBC RARE, Urine Hemoglobin SMALL H, Urine Glucose 100 H Patient reports improved right shoulder pain upon arrival to the hospital. Labs , xrays ordered. 06/07/2016 12:43:49 PM Visiting nurse services set up for home by Molly from case management. Patient was ambulatory in the ED with a walker without any distress or ataxia. X-rays are negative for acute pathology. Patient will be transported back to assisted living after lunch. (KOBE SORIA,VICENTA) Diagnostic Imaging: Viewed by Me: Radiology Read. Discussed w/RAD: Radiology Read. Radiology Impression: PATIENT: ELOY LI PRESENT AGE: 75 PATIENT ACCOUNT NO: [id number] : 42 LOCATION: [facility] ORDERING PHYSICIAN: VICENTA BULLOCK MD SERVICE DATE: 06/07/16 EXAM TYPE: RAD - XRY-SHOULDER COMPLETE-RIGHT EXAMINATION: XR SHOULDER, RIGHT CLINICAL INFORMATION: Status post fall. COMPARISON: None TECHNIQUE: Three views of the right shoulder. FINDINGS: There is a reverse total right shoulder arthroplasty. The humeral head component articulates appropriately with the glenoid component. No periprosthetic lucency or fracture. The visualized lung is clear. The acromioclavicular joint is intact. IMPRESSION: Reverse total right shoulder arthroplasty without evidence of failure. No acute fracture. DICTATED BY: STAS DUKE MD DATE/TIME DICTATED:06/07/16924 ORE CRUSHER: ERIKA DATE/TIME TRANSCRIBED:06/07/16924 CONFIDENTIAL, DO NOT COPY WITHOUT APPROPRIATE AUTHORIZATION. <Electronically signed in Other Vendor System> SIGNED BY: LEILANI SORIA,STAS 06/07/16928 Initial ED EKG: pacemaker rhythm Prior EKG: unchanged Departure Departure Time of Disposition: 1244 Disposition: HOME OR SELF CARE Condition: Stable Clinical Impression Primary Impression: Shoulder pain, right Secondary Impressions: Fall Referrals: GEOFFREY SORIA,SUSIE Sarmiento (PCP/Family) Additional Instructions: Take Tylenol as needed for pain. Visiting nurse services have been set up for you and they will come to the house to assess physical therapy needs. Follow-up with your doctor in the office. Departure Forms: Customer Survey General Discharge Information
--- NOTE | 2016-06-07 09:29 | RADIOLOGY REPORT ---
EXAMINATION: XR SHOULDER, RIGHT CLINICAL INFORMATION: Status post fall. COMPARISON: None TECHNIQUE: Three views of the right shoulder. FINDINGS: There is a reverse total right shoulder arthroplasty. The humeral head component articulates appropriately with the glenoid component. No periprosthetic lucency or fracture. The visualized lung is clear. The acromioclavicular joint is intact. IMPRESSION: Reverse total right shoulder arthroplasty without evidence of failure. No acute fracture.
--- NOTE | 2016-06-07 09:30 | RADIOLOGY REPORT ---
EXAMINATION: XR CHEST CLINICAL INFORMATION: Fall onto ground. COMPARISON: 06/03/2016 TECHNIQUE: 2 views of the chest were obtained. FINDINGS: Left chest wall dual-lead pacer is unchanged. The lungs are well expanded. Minimal left basilar atelectasis. No pleural effusion or edema. No pneumothorax. The cardiomediastinal silhouette is unchanged, with a calcified aorta. Mild degenerative changes in the spine. Right reverse total shoulder arthroplasty. IMPRESSION: Minimal left basilar atelectasis. Otherwise clear lungs. No acute osseous abnormality.
[2016-06-07 09:34] LABS: ABSOLUTE BASOPHIL COUNT 0 /CUMM (0.0-0.2); ABSOLUTE EOSINOPHIL COUNT 0.1 /CUMM (0.0-0.7); ABSOLUTE LYMPH COUNT 0.7 /CUMM (1.2-3.4); ABSOLUTE MONOCYTE COUNT 0.2 /CUMM (0.10-0.60); BASOPHIL % 0 % (0.0-2.0); EOSINOPHIL % 1.5 % (0-5); GRANULOCYTE % 83.5 % (42.2-75.2); HEMATOCRIT 35.4 % (42-52); MEAN CORPUSCULAR HGB 27.5 PG (27.0-31.0); MEAN CORPUSCULAR HGB CONC 33.4 G/DL (33.0-37.0); MEAN CORPUSCULAR VOLUME 82.4 FL (80.0-94.0); MEAN PLATELET VOLUME 8.7 FL (7.4-10.4); PLATELET COUNT 172 /CUMM (130-400); RBC DISTRIBUTION WIDTH 17.7 % (11.5-14.5)
[2016-06-07 14:04] VITALS: BP 137/63
== END 2016-06-07 14:36 ==
LOC: ERH 08:36
PROVIDERS: Emergency Medicine
DX: M25.511 Pain in right shoulder (principal)
CPT/HCPCS: 73030-RT; 80307; 81001; 93005; 93010; G0480

== ENCOUNTER 2016-06-11 22:08 | Emergency (ER) | payer OTHER ==
--- NOTE | 2016-06-11 22:45 | ED GENERAL ADULT ---
History of Present Illness General Chief Complaint: General Adult Stated Complaint: BIBA WEAKNESS Source: patient, EMS Exam Limitations: dementia Vital Signs & Intake/Output Vital Signs & Intake/Output Vital Signs Date Time Temp Pulse Resp B/P B/P Pulse O2 O2 Flow FiO2 Mean Ox Delivery Rate 06/12 0200 98.0 74 20 136/72 96 Room Air 06/11 2221 93 Room Air Room Air 06/11 2220 96.4 73 18 139/61 93 Room Air Room Air Allergies Coded Allergies: No Known Allergies (06/07/16) Reconcile Medications Acetaminophen 325 MG TABLET 2 TAB PO TID PRN PAIN/FEVER (Reported) Cholecalciferol (Vitamin D3) (Vitamin D3) 1,000 UNIT CAPSULE 1 CAP PO 0900 SUPPLEMENT (Reported) Diphenhydramine HCl (Benadryl) 25 MG CAPSULE 1 CAP PO BID PRN ITCHING ( Reported) Gabapentin 100 MG CAPSULE 1 CAP PO BID UNKNOWN (Reported) Hydrochlorothiazide 25 MG TABLET 1 TAB PO DAILY BP/DIURETIC (Reported) Insulin Detemir (Levemir Flextouch) 100 UNIT/ML (3 ML) INSULN.PEN 85 U SC 2100 DIABETES (Reported) Insulin Lispro (Humalog Kwikpen U-100) 100 UNIT/ML INSULN.PEN 18 UNITS SC WM DM (Reported) Loperamide HCl (Imodium A-D) 2 MG TABLET 1 TAB PO Q4P PRN DIARRHEA (Reported) Losartan Potassium 100 MG TABLET 1 TAB PO 0900 HTN (Reported) Metformin HCl (Metformin HCl ER) 500 MG [id number] 3 TAB PO 1630 DIABETES ( Reported) Nitroglycerin (Nitroglycerin Patch) 0.4 MG/HOUR PATCH.TD24 0.4 MG TOP DAILY NSTEMI Pravastatin Sodium (Pravachol) 80 MG TABLET 1 TAB PO 1630 CHOLESTEROL ( Reported) Ramelteon (Rozerem) 8 MG TABLET 1 TAB PO 2000 SLEEP (Reported) Sertraline HCl (Zoloft) 100 MG TABLET 1.5 TAB PO 2000 MENTAL HEALTH (Reported ) Tramadol HCl 50 MG TABLET 1 TAB PO Q8P PRN PAIN (Reported) Trazodone HCl 150 MG TABLET 1 TAB PO QHS PRN SLEEP (Reported) Triage Note: 75 YEAR OLD MALE BIBA FROM [facility] S/P FALL. PER EMS PT WAS ON BED AT ARRIVAL. PT HAD INITIAL COMPLAINT OF BACK PAIN BUT AFTER BEING MOVED TO STRETCHER REPORTED RELIEF FROM PAIN. PT REPORTS HE "TRIPPED UP AND FELL TO THE FLOOR." DENIES HEADSTRIKE, LOC, +BLOOD THINNERS. PT ARRIVES TO ED ALERT AND ORIENTED X3, PT IS SOMETIMES SLOW TO RESPOND TO QUESTIONS BUT ANSWERS APPROPRIATELY. DENIES CP/SOB AT THIS TIME. Triage Nurses Notes Reviewed? yes Onset: Abrupt Duration: hour(s): Timing: recent history HPI: 06/11/16 75-year-old man presents to the emergency department for a fall. According to senior care staff, he had fallen today and complained of weakness. He has no complaints at this time. The onset of the symptoms was abrupt, the duration is unclear, the severity is significant as his symptoms required her to come to the emergency department for care. He does have a history of a pacemaker. On physical exam his head is normocephalic and atraumatic, his neck is nontender. Heart is regular rate and rhythm, lungs are clear. He denies any complaints. He is actually oriented 3. No chest pain no shortness of breath no headache no hip pain. Past History Travel History Traveled to [place] past 21 day No Medical History Any Pertinent Medical History? see below for history Neurological: MEMORY NEUROPATHY EENT: NONE Cardiovascular: hypertension, PACE MAKER L CHEST WALL Respiratory: NONE Gastrointestinal: NONE Hepatic: NONE Renal: NONE Musculoskeletal: CHRONIC R SHOULDER Psychiatric: anxiety, depression, ADJUSTMENT DISORDER Endocrine: diabetes Blood Disorders: NONE Cancer(s): NONE LABEL TACKER/Reproductive: NONE History of MRSA: No History of VRE: No History of CDIFF: No Surgical History Surgical History: Right shoulder repair Psychosocial History Who do you live with Patient/Self Services at Home None What is your primary language Indonesian Tobacco Use: Never used Family History Family History, If Any: BROTHER Cardiac pacemaker Sinus bradycardia Relation not specified for: Diabetes mellitus FH: hypertension FH: myocardial infarction Hx Contributory? No Review of Systems Review of Systems Constitutional: Denies: fever. EENTM: Denies: visual changes. Respiratory: Denies: short of breath. Cardiovascular: Denies: chest pain. GI: Denies: abdominal pain. Genitourinary: Reports: no symptoms. Musculoskeletal: Reports: no symptoms. Skin: Denies: rash. Neurological/Psychological: Denies: headache. Hematologic/Endocrine: Denies: bruising. Physical Exam Physical Exam General Appearance: no apparent distress, alert, awake, anxious, mild distress Head: atraumatic, normal appearance Eyes: Bilateral: normal appearance, PERRL, EOMI. Ears, Nose, Throat: normal pharynx, normal ENT inspection Neck: normal inspection, supple, full range of motion Respiratory: normal breath sounds, chest non-tender, no respiratory distress Cardiovascular: regular rate/rhythm Peripheral Pulses: 4+ radial (R), 4+ radial (L) Gastrointestinal: non-tender Back: normal range of motion Extremities: normal range of motion Neurologic/Psych: no motor/sensory deficits, awake, alert, oriented x 3 Skin: intact, normal color, warm/dry Core Measures ACS in differential dx? No CVA/TIA Diagnosis: No Severe Sepsis Present: No Septic Shock Present: No Progress Differential Diagnoses I considered the following diagnoses in my evaluation of the patient: [ Intracranial injury, fracture, acute coronary syndrome, dysrhythmia, hypoglycemia, DKA] Plan of Care: Orders Procedure Date/time Status TROPONIN LEVEL 06/12 2307 Complete COMPREHENSIVE METABOLIC PANEL 06/12 2307 Complete CBC WITHOUT DIFFERENTIAL 06/12 2307 Complete EKG 06/12 2211 Active Laboratory Tests 06/12/16 0003: Anion Gap 9, Estimated GFR 54 L, BUN/Creatinine Ratio 28.5 H, Glucose 316 H, Calcium 9.5, Total Bilirubin 0.4, AST 20, ALT 38, Alkaline Phosphatase 51, Troponin I 0.05, Total Protein 5.8 L, Albumin 3.2 L, Globulin 2.6, Albumin/ Globulin Ratio 1.2, CBC w Diff NO MAN DIFF REQ, RBC 3.90 L, MCV 81.7, MCH 28.0, RDW 17.4 H, MPV 9.0, Gran % 79.0 H, Lymphocytes % 11.2 L, Monocytes % 8.0, Eosinophils % 1.5, Basophils % 0.3, Absolute Granulocytes 6.2, Absolute Lymphocytes 0.9 L, Absolute Monocytes 0.6, Absolute Eosinophils 0.1, Absolute Basophils 0, PUBS MCHC 34.3 Initial ED EKG: paced beats Prior EKG: unchanged Departure Departure Disposition: HOME OR SELF CARE Condition: Stable Clinical Impression Primary Impression: Fall Secondary Impressions: Weakness Referrals: GEOFFREY SORIA,SUSIE Sarmiento (PCP/Family) Departure Forms: Customer Survey General Discharge Information Comments 06/12/16 2 AM Patient denies chest pain or any complaints, CT scan of the head and neck are unremarkable. EKG reveals paced beats. Troponin is 0.05. This is lower than his prior troponin. He does have mild hyperglycemia. He is being transferred back to the assisted care facility Chest x-ray unremarkable results below- IMPRESSION: Low lung volumes and bibasilar subsegmental atelectasis. No overt consolidative disease or effusion. DICTATED BY: AYLEEN SORIA,LARY Coleman DATE/TIME DICTATED:06/12/16 0009 SKI PATROLLER:ERIKA Critical Care Note Critical Care Note Critical Care Time: non-applicable
--- NOTE | 2016-06-12 00:03 | CT SCAN REPORT ---
EXAMINATION: CT HEAD AND CERVICAL SPINE. CLINICAL INFORMATION: Fall. Head injury. COMPARISON: CT head 02/28/2015. TECHNIQUE: Extension Edger images were obtained. CT acquisition of the cervical spine was performed without intravenous administration of contrast. Data was reformatted into multiplanar images at the acquisition station. DLP: 1101.92 mGy-cm. FINDINGS: Head: There is no acute intracranial hemorrhage or abnormal extra axial collection. No intracranial mass effect or midline shift. Lateral and third ventricles are slightly prominent and there is proportionate prominence of the subarachnoid spaces reflecting a mild degree of global parenchymal volume loss. There is a small focus of hypoattenuation within the right lentiform nucleus that most likely represents an old chronic lacunar infarct. Ill-defined hypoattenuation visualized within the periventricular white matter mostly represent a chronic manifestation of small vessel ischemia. [place]-white matter differentiation is otherwise grossly preserved and there is no evidence of acute territorial infarct. The calvarium and skull base are intact. Mastoid air cells and middle ear cavities are well aerated. There is moderate to severe paranasal sinus disease with hyperdense material within the right sphenoid chamber and the right maxillary sinus that may either represent inspissated proteinaceous mucosal secretions or fungal elements. Cervical spine: Patient motion degrades image quality therefore the diagnostic accuracy of this examination is somewhat limited. There is slight anterolisthesis of C3 on C4 that appears be related to advanced arthrosis of the right C3-C4 articular facet joint. Alignment is otherwise maintained. There is no evidence of acute fracture. No abnormal prevertebral soft tissue swelling. 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 There is also degenerative narrowing of the intervertebral disc spaces at C5-C6 and C6-C7 with associated sclerotic degenerative endplate changes and disc osteophyte spurring. Heavily calcified plaque involving the left carotid bifurcation is noted. Soft tissues of the neck including the thyroid gland are unremarkable. Lung apices are clear. IMPRESSION: Head: No acute intracranial hemorrhage. Cervical spine: Patient motion degrades image quality on this component of the examination therefore the diagnostic accuracy is limited. There is no acute cervical spinal fracture. Advanced degenerative spondylosis at C5-C6 and C6-C7.
--- NOTE | 2016-06-12 00:28 | RADIOLOGY REPORT ---
EXAMINATION: XR PORTABLE CHEST CLINICAL INFORMATION: Chest pain. Evaluate for CHF. COMPARISON: Chest radiograph 06/07/2016. TECHNIQUE: Portable AP view of the chest was obtained. FINDINGS: A left pectoral pacemaker is unchanged in position. Lung volumes are low and there is hilar vascular crowding. Coarse markings within the lung bases most likely represent a manifestation of subsegmental atelectasis. No overt consolidative disease. No pleural effusion or pneumothorax. The cardiac silhouette is prominent which is likely a manifestation of lung underexpansion and AP technique. There is no acute osseous finding. Chronic changes of a reverse right shoulder arthroplasty are noted. IMPRESSION: Low lung volumes and bibasilar subsegmental atelectasis. No overt consolidative disease or effusion.
[2016-06-12 00:38] LABS: ABSOLUTE BASOPHIL COUNT 0 /CUMM (0.0-0.2); ABSOLUTE EOSINOPHIL COUNT 0.1 /CUMM (0.0-0.7); ABSOLUTE GRANULOCYTE CT 6.2 /CUMM (1.4-6.5); ABSOLUTE LYMPH COUNT 0.9 /CUMM (1.2-3.4); ABSOLUTE MONOCYTE COUNT 0.6 /CUMM (0.10-0.60); BASOPHIL % 0.3 % (0.0-2.0); EOSINOPHIL % 1.5 % (0-5); HEMATOCRIT 31.9 % (42-52); MEAN CORPUSCULAR HGB CONC 34.3 G/DL (33.0-37.0); MEAN CORPUSCULAR VOLUME 81.7 FL (80.0-94.0); PLATELET COUNT 191 /CUMM (130-400); RBC DISTRIBUTION WIDTH 17.4 % (11.5-14.5); WHITE BLOOD CELL COUNT 7.9 /CUMM (4.8-10.8)
[2016-06-12 02:00] VITALS: BP 136/72
== END 2016-06-12 02:19 ==
LOC: ERH 22:08
PROVIDERS: Emergency Medicine
DX: Z04.3 Encounter for examination and observation following other accident (principal); R53.1 Weakness; E11.9 Type 2 diabetes mellitus without complications; Z79.84 Long term (current) use of oral hypoglycemic drugs; W19.XXXA Unspecified fall, initial encounter; Y93.9 Activity, unspecified; Y92.29 Other specified public building as the place of occurrence of the external cause
CPT/HCPCS: 93005; 93010; 96372; J1815

== ENCOUNTER 2016-06-21 05:31 | Inpatient (IN) | payer OTHER ==
[~2016-06-21] VITALS: Ht 177.8 cm; Wt 94.5 kg
--- NOTE | 2016-06-21 05:37 | ED CARDIAC/CP/PALPITATIONS ---
See Addendum History of Present Illness General Chief Complaint: Chest Pain Stated Complaint: CHEST PAIN Source: patient, family Exam Limitations: no limitations Vital Signs & Intake/Output Vital Signs & Intake/Output Vital Signs Date Time Temp Pulse Resp B/P B/P Pulse O2 O2 Flow FiO2 Mean Ox Delivery Rate 06/21 0541 97 Nasal 2.0L Cannula 06/21 0540 98.7 71 20 187/90 97 Nasal 2.0L Cannula Allergies Coded Allergies: No Known Allergies (06/07/16) Reconcile Medications Acetaminophen 325 MG TABLET 2 TAB PO TID PRN PAIN/FEVER (Reported) Cholecalciferol (Vitamin D3) (Vitamin D3) 1,000 UNIT CAPSULE 1 CAP PO 0900 SUPPLEMENT (Reported) Diphenhydramine HCl (Benadryl) 25 MG CAPSULE 1 CAP PO BID PRN ITCHING ( Reported) Gabapentin 100 MG CAPSULE 1 CAP PO BID UNKNOWN (Reported) Hydrochlorothiazide 25 MG TABLET 1 TAB PO DAILY BP/DIURETIC (Reported) Insulin Detemir (Levemir Flextouch) 100 UNIT/ML (3 ML) INSULN.PEN 85 U SC 2100 DIABETES (Reported) Insulin Lispro (Humalog Kwikpen U-100) 100 UNIT/ML INSULN.PEN 18 UNITS SC WM DM (Reported) Loperamide HCl (Imodium A-D) 2 MG TABLET 1 TAB PO Q4P PRN DIARRHEA (Reported) Losartan Potassium 100 MG TABLET 1 TAB PO 0900 HTN (Reported) Metformin HCl (Metformin HCl ER) 500 MG [id number] 3 TAB PO 1630 DIABETES ( Reported) Nitroglycerin (Nitroglycerin Patch) 0.4 MG/HOUR PATCH.TD24 0.4 MG TOP DAILY NSTEMI Pravastatin Sodium (Pravachol) 80 MG TABLET 1 TAB PO 1630 CHOLESTEROL ( Reported) Ramelteon (Rozerem) 8 MG TABLET 1 TAB PO 2000 SLEEP (Reported) Sertraline HCl (Zoloft) 100 MG TABLET 1.5 TAB PO 2000 MENTAL HEALTH (Reported ) Tramadol HCl 50 MG TABLET 1 TAB PO Q8P PRN PAIN (Reported) Trazodone HCl 150 MG TABLET 1 TAB PO QHS PRN SLEEP (Reported) Triage Nurses Notes Reviewed? yes Onset: Abrupt Duration: hour(s): Timing: recent history Quality/Severity: mild Location: left chest Radiation: no radiation Activities at Onset: sleep Prior Chest Pain/Card Workup: heart attack Modifying Factors: Improves With: rest. HPI: 75 yo gentleman h/o CO in april 2016, h/o pacer, presents after a 10 minute episode of left sided chest pressure, at approximately 3:30pm (more than 2 hours ago). He noted no shortness of breath, diaphoresis, radiation. He is tolerating his medications. He has no fever, chills, cough, phlegm, lower extremity swelling. He has been chest pain free for nearly 2 hours. Past History Travel History Traveled to [place] past 21 day No Medical History Any Pertinent Medical History? see below for history Neurological: MEMORY NEUROPATHY EENT: NONE Cardiovascular: hypertension, PACE MAKER L CHEST WALL Respiratory: NONE Gastrointestinal: NONE Hepatic: NONE Renal: NONE Musculoskeletal: CHRONIC R SHOULDER Psychiatric: anxiety, depression, ADJUSTMENT DISORDER Endocrine: diabetes Blood Disorders: NONE Cancer(s): NONE GUEST REQUEST RUNNER/Reproductive: NONE History of MRSA: No History of VRE: No History of CDIFF: No Surgical History Surgical History: Right shoulder repair Psychosocial History Who do you live with Patient/Self Services at Home None What is your primary language Indonesian Family History Family History, If Any: BROTHER Cardiac pacemaker Sinus bradycardia Relation not specified for: Diabetes mellitus FH: hypertension FH: myocardial infarction Hx Contributory? No Review of Systems Review of Systems Constitutional: Reports: no symptoms. EENTM: Reports: no symptoms. Respiratory: Reports: no symptoms. Cardiovascular: Reports: no symptoms. GI: Reports: no symptoms. Genitourinary: Reports: no symptoms. Musculoskeletal: Reports: no symptoms. Skin: Reports: no symptoms. Neurological/Psychological: Reports: no symptoms. Hematologic/Endocrine: Reports: no symptoms. Immunologic/Allergic: Reports: no symptoms. All Other Systems: Reviewed and Negative Physical Exam Physical Exam General Appearance: well developed/nourished, no apparent distress Head: atraumatic, normal appearance Eyes: Bilateral: normal appearance. Ears, Nose, Throat: normal pharynx, normal ENT inspection Neck: normal inspection, supple, full range of motion Respiratory: normal breath sounds, chest non-tender, no respiratory distress, quiet respiration, lungs clear Cardiovascular: regular rate/rhythm, edema Gastrointestinal: normal bowel sounds, soft, non-tender, no organomegaly Rectal: normal exam, heme negative stool Back: normal inspection, normal range of motion Extremities: normal inspection, normal capillary refill, normal range of motion Neurologic/Psych: no motor/sensory deficits, awake, alert, oriented x 3 Reflexes: 1+: bicep (R), bicep (L), knee (R), knee (L). Skin: intact, normal color, warm/dry Core Measures ACS in differential dx? Yes ASA ordered for poss ACS? Yes-ordered Severe Sepsis Present: No Septic Shock Present: No Progress Differential Diagnosis: AMI, CHF/pulm edema, costochondritis, unstable angina Plan of Care: Orders Procedure Date/time Status Admit to inpatient 06/22 651 Active TROPONIN LEVEL 06/21 537 Complete D-DIMER 06/21 537 Complete COMPREHENSIVE METABOLIC PANEL 06/21 537 Complete CBC WITHOUT DIFFERENTIAL 06/21 537 Complete EKG 06/21 534 Active Current Medications Sig/Theodore Start time Last Medication Dose Stop Time Status Admin Aspirin 325 MG ONCE ONE 06/21 699 AC (Aspirin) 06/21 700 Heparin Sodium 4,000 UNIT ONCE ONE 06/21 699 AC (Porcine) 06/21 700 (Heparin Bolus) Heparin Sodium 25,000 UNIT Q24H 06/21 699 UNVr (Porcine) (Heparin) Sodium Chloride 500 ML Laboratory Tests 06/21/16 0550: Anion Gap 13, Estimated GFR 59 L, BUN/Creatinine Ratio 29.2 H, Glucose 398 H, Calcium 9.2, Total Bilirubin 0.8, AST 32, ALT 39, Alkaline Phosphatase 66, Troponin I 0.88 *H, Total Protein 6.9, Albumin 3.8, Globulin 3.1, Albumin/ Globulin Ratio 1.2, D-Dimer 297 H, CBC w Diff NO MAN DIFF REQ, RBC 4.30 L, MCV 82.6, MCH 27.4, RDW 17.7 H, MPV 8.3, Gran % 78.7 H, Lymphocytes % 10.3 L, Monocytes % 8.8, Eosinophils % 1.7, Basophils % 0.5, Absolute Granulocytes 6.5, Absolute Lymphocytes 0.8 L, Absolute Monocytes 0.7 H, Absolute Eosinophils 0.1 , Absolute Basophils 0, PUBS MCHC 33.1 Diagnostic Imaging: Viewed by Me: Radiology Read. Discussed w/RAD: Radiology Read. CXR Impression: no acute abnormality, no infiltrates, normal size heart, normal mediastinum Initial ED EKG: paced rhythm... no acute changes from prior Prior EKG: unchanged Repeat EKG: unchanged Comments: PATIENT: ELOY LI PRESENT AGE: 75 PATIENT ACCOUNT NO: [id number] : 42 LOCATION: [facility] ORDERING PHYSICIAN: SINDY POND MD SERVICE DATE: 06/21/16 EXAM TYPE: RAD - XRY-PORTABLE CHEST XRAY EXAMINATION: XR PORTABLE CHEST CLINICAL INFORMATION: Chest pain COMPARISON: 06/11/2016 TECHNIQUE: Portable frontal view of the chest was obtained. FINDINGS: Left-sided pacemaker appears in stable position. The lungs are clear with no focal consolidation. No evidence of pneumothorax, pulmonary edema, or pleural effusions. The cardiac silhouette remains prominent. Calcification is present at the aortic arch. Patient is status post right shoulder arthroplasty. No acute osseous findings are seen. IMPRESSION: No acute cardiopulmonary findings. Cardiac silhouette remains prominent. DICTATED BY: RADHA MILLER MD DATE/TIME DICTATED:06/21/16621 EXECUTIVE TEAM LEADER:ERIKA DATE/TIME TRANSCRIBED:06/21/16621 CONFIDENTIAL, DO NOT COPY WITHOUT APPROPRIATE AUTHORIZATION. <Electronically signed in Other Vendor System> SIGNED BY: RADHA MILLER MD 06/21/16625 Departure Departure Disposition: HOME OR SELF CARE Condition: Guarded Clinical Impression Primary Impression: Elevated troponin Referrals: GEOFFREY SORIA,SUSIE Sarmiento (PCP/Family) Departure Forms: Customer Survey General Discharge Information Admission Note Spoke With: MARYBETH SORIA PhD,MATT Resendez Documentation of Exam: Documentation of any treatments & extenuating circumstances including Concerns Regarding Discharge (functional status, medication knowledge or non-compliance, living conditions, etc.) that warrant an admission rather than observation: pt with 10 minute episode of chest pain, no ekg changes, chest pain free for nearly 2 hours.... his troponin is positive in the context of recent CO... pt to be admitted to ICU with heparin and baseline meds. no BBLocker due to pulse in 60's. Critical Care Note Critical Care Note Critical Care Time: 30-74 min
--- NOTE | 2016-06-21 05:39 | NUR ---
PT BIBA FROM ASSIST[facility]IV[facility] ([facility]) C/O CP. PER MEDIC PT STATES HE WAS GETTING UP TO GET FOOD THIS MORNING AROUND 0500 WHEN HE FELT LEFT SIDED CP. PT HAD A PACEMAKER PLACED IN MAY. PT ARRIVED WITH VSS, NOT DIAPHORETIC, ASYMPTOMATIC ON ARRIVAL. PT HAS [facility] IN RIGHT HAND. PT ON 2L NC ON ARRIVAL. MEDIC MEDICATED PT WITH BABY ASA. AWAITING PROVIDER EVAL. PT PLACED ON MONITOR ADN EKG ORDERED.
--- NOTE | 2016-06-21 05:53 | NUR ---
DR POND IN FOR MELODYAL
--- NOTE | 2016-06-21 05:58 | NUR ---
IV PLACED BY RN ARMANDO #20 LW, LABD DRAWN AND SENT BY THIS RN (SST, LAV, BLUE, RIOS, PINK)
[2016-06-21 06:09] LABS: ABSOLUTE BASOPHIL COUNT 0 /CUMM (0.0-0.2); ABSOLUTE EOSINOPHIL COUNT 0.1 /CUMM (0.0-0.7); ABSOLUTE GRANULOCYTE CT 6.5 /CUMM (1.4-6.5); ABSOLUTE LYMPH COUNT 0.8 /CUMM (1.2-3.4); ABSOLUTE MONOCYTE COUNT 0.7 /CUMM (0.10-0.60); BASOPHIL % 0.5 % (0.0-2.0); EOSINOPHIL % 1.7 % (0-5); GRANULOCYTE % 78.7 % (42.2-75.2); HEMATOCRIT 35.6 % (42-52); MEAN CORPUSCULAR HGB 27.4 PG (27.0-31.0); MEAN CORPUSCULAR HGB CONC 33.1 G/DL (33.0-37.0); MEAN CORPUSCULAR VOLUME 82.6 FL (80.0-94.0); MEAN PLATELET VOLUME 8.3 FL (7.4-10.4); PLATELET COUNT 217 /CUMM (130-400); RBC DISTRIBUTION WIDTH 17.7 % (11.5-14.5); WHITE BLOOD CELL COUNT 8.2 /CUMM (4.8-10.8)
--- NOTE | 2016-06-21 06:14 | NUR ---
EKG DONE AND SHOWNTO DR. POND.
--- NOTE | 2016-06-21 06:26 | RADIOLOGY REPORT ---
EXAMINATION: XR PORTABLE CHEST CLINICAL INFORMATION: Chest pain COMPARISON: 06/11/2016 TECHNIQUE: Portable frontal view of the chest was obtained. FINDINGS: Left-sided pacemaker appears in stable position. The lungs are clear with no focal consolidation. No evidence of pneumothorax, pulmonary edema, or pleural effusions. The cardiac silhouette remains prominent. Calcification is present at the aortic arch. Patient is status post right shoulder arthroplasty. No acute osseous findings are seen. IMPRESSION: No acute cardiopulmonary findings. Cardiac silhouette remains prominent.
--- NOTE | 2016-06-21 06:38 | NUR ---
PT MEDICATED WITH 10UNIT SC NOVOLIN R INSULIN IN RIGHT ARM. WILL CONTINUE TO MONITOR BS
--- NOTE | 2016-06-21 06:39 | NUR ---
CRITICAL TEST RESULTS [id number] ELOY LI 75 M TESTS AND RESULTS: TROP 0.88 Results received and read back by: GOOD STOCK Results received date and time: 06/21/16 0639 The following provider was notified of the results, and read the results back: DR POND Notified date and time: 06/21/16 at 0639
--- NOTE | 2016-06-21 07:01 | NUR ---
PT MEDICATED WITH 325MG ASA, 4000UNITS HEPARIN BOLUS AND HEPARIN DRIP INFUSING AT 20ML/HR PER EMAR.
[2016-06-21 07:10] LABS: PTT 31 SEC (25-37)
--- NOTE | 2016-06-21 07:17 | NUR ---
ASSUMED CARE AT THIS TIME, PT AWAKE AND ALERT AT THIS TIME, DENIES CP, PACED ON MONITOR WITH HR 64, WHEN THIS NURSE WAS SPEAKING WITH PT, PATIENT STATES THAT HE IS NOT STAYING AND THAT HE WOULD LIKE TO BE DISCHARGED. PT MADE AWARE THAT HE HAD A HEART ATTACK AND THAT HE WOULD NEED TO STAY FOR IV BLOOD THINNERS, HEPARIN INFUSING AT THIS TIME AT 20ML/HR NEXT PTT DUE AT 1300 . PT STATES THAT HE USES THE URINAL TO VOID BUT THAT HE DOES NOT HAVE TO GO AT THIS TIME, PT USES CANE OR WALKER AT HOME TO ASSIST HIM WITH WALKING. FS 387 AT THIS TIME PT WAS MEDICATED WITH 10 UNITS NOV R AT 0630 THIS AM BY GRANULATOR OPERATOR. WILL CONTINUE TO MONITOR.
[2016-06-21] MEDS ORDERED: LANTUS SOL100 UNIT/1 SC (07:46)
[2016-06-21] MEDS ORDERED: METOPROLOL SUC100 M2 PO (07:47)
[2016-06-21] MEDS ORDERED: ALBUTEROL2.5 MG/3 M INH/SOL (07:48)
[2016-06-21] MEDS ORDERED: REMERON30 M3 PO (07:49)
--- NOTE | 2016-06-21 07:49 | NUR ---
PT ADMITTED TO ROOM 106
--- NOTE | 2016-06-21 07:49 | History & Physical ---
PIA COLLINS 06/21/16 0748: General Information and HPI MD Statement: I have seen and personally examined ELOY LI and documented this H&P. The patient is a 75 year old M who presented with a patient stated chief complaint of [chest pain]. 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, previous smoker (quit 20 years ago), ( previous alcoholism ) 15-20 years ago) no illicit drug abuse with past medical history of hypertension, hyperlipidemia, insomnia, major depressive disorder, diabetes mellitus type 2 with diabetic peripheral neuropathy, amnesia, adjustment disorder, prior history of recurrent falls, carotid stenosis with complete occlusion of the left carotid internal artery (not a surgical candidate ), aortic stenosis, previously admitted in November 2015 for symptomatic bradycardia, had a MRI compatible dual-chamber pacemaker placed for symptomatic bradycardia with second-degree heart block on 12/05/2015 , was admitted again in april 2016 for acute exacerbation of CHF with elevated troponin, transferred to [facility] for cardiac cath, found to have new ischemia cardiomyopathy and two-vessel CAD by cardiac cath including total RCA occlusion without obvious targets for PCI per report returns from [facility] with chief complain CHEST pain that started 3:30 AM today morning () 2 hours prior to presentation.He describes the chest pain as sharp in nature , mild to moderate in intensity, 4 out of 10, lasting for about 30 minutes to 1 hour, it did not worsen over the time,however it stayed constant and therefore he was brought in to [place] emergency department by the EMS. He was given aspirin en route to the hospital. He denied any radiation of the pain, any worsening shortness of breath, paroxysmal nocturnal dyspnea, lightheadedness, dizziness, diarrhea, constipation, fever or chills recent sickness. Patient is a very poor historian and does not recollect if he actually had a catheterization at [facility] after the transfer in april 2016. Patient is a resident of assisted living facility at [facility]. He does most of his activities of living by himself with him some help. His primary care is Dr. Fariha Arguelles. Cardiology Dr. Craft's group. Allergies/Medications Allergies: Coded Allergies: No Known Allergies (06/07/16) Home Med list Albuterol Sulfate 2.5 MG/3 ML (0.083 %) VIAL.NEB 1 Vial INH/ROSELINE Q4P PRN SOB ( Reported) Aspirin (Aspirin*) 81 MG TAB.CHEW 1 TAB PO DAILY HEART HEALTH (Reported) Cholecalciferol (Vitamin D3) (Vitamin D3) 1,000 UNIT CAPSULE 1 CAP PO 0900 SUPPLEMENT (Reported) Gabapentin 100 MG CAPSULE 1 CAP PO BID PAIN MX (Reported) Hydrochlorothiazide 25 MG TABLET 1 TAB PO DAILY BP/DIURETIC (Reported) Insulin Glargine,Hum.rec.anlog (Lantus Solostar) 100 UNIT/ML (3 ML) INSULN.PEN 40 UNITS SC QPM DIABETES (Reported) Insulin Lispro (Humalog Kwikpen U-100) 100 UNIT/ML INSULN.PEN 18 UNITS SC WM DM (Reported) Losartan Potassium 100 MG TABLET 1 TAB PO 0900 HTN (Reported) Metformin HCl (Metformin HCl ER) 500 MG [id number] 3 TAB PO 1630 DIABETES ( Reported) Metoprolol Succinate 100 MG TAB.ER.24H 1 TAB PO DAILY HTN (Reported) Mirtazapine (Remeron) 30 MG TABLET 1 TAB PO QPM DEPRESSION (Reported) Pravastatin Sodium (Pravachol) 80 MG TABLET 1 TAB PO 1630 CHOLESTEROL ( Reported) Ramelteon (Rozerem) 8 MG TABLET 1 TAB PO 2000 SLEEP (Reported) Sertraline HCl (Zoloft) 100 MG TABLET 1.5 TAB PO 2000 MENTAL HEALTH (Reported ) Tramadol HCl 50 MG TABLET 1 TAB PO Q8P PRN PAIN (Reported) Trazodone HCl 150 MG TABLET 1 TAB PO QHS PRN SLEEP (Reported) Compliance With Home Meds: FAIR Past History Travel History Traveled to [place] past 21 day No Medical History Neurological: MEMORY NEUROPATHY EENT: NONE Cardiovascular: hypertension, PACE MAKER L 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 WALL Respiratory: NONE Gastrointestinal: NONE Hepatic: NONE Renal: NONE Musculoskeletal: CHRONIC R SHOULDER Psychiatric: anxiety, depression, ADJUSTMENT DISORDER Endocrine: diabetes Blood Disorders: NONE Cancer(s): NONE 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 Assisted Living Who Do You Live With? self Services at Home: None Primary Language: Norwegian Smoking Status: Former Smoker ETOH Use: former use, quit now. Illicit Drug Use: denies illicit drug use Living Will? unknown Functional Ability ADLs Independent: dressing, eating, toileting, bathing. Ambulation: Walker was instructed to him but has not used it IADLs Independent: food prep, telephone. Needs Assist: shopping, housework, finances, transportation, medication admin. Review of Systems Review of Systems Constitutional: Denies: chills, diaphoresis, fever, malaise, weakness, unexplained weight loss. EENTM: Denies: blurred vision, double vision, visual changes, eye pain. Cardiovascular: Reports: chest pain, peripheral edema. Denies: edema, orthopena, palpitations, syncope. Respiratory: Denies: cough, hemoptysis, orthopnea, short of breath, sputum production, stridor, wheezing. GI: Denies: abdominal pain, bloating, constipation, diarrhea, distention. Genitourinary: Denies: no symptoms. Musculoskeletal: Denies: no symptoms. Skin: Denies: no symptoms. Neurological/Psychological: Denies: no symptoms. Hematologic/Endocrine: Denies: no symptoms. Immunologic/Allergic: Denies: no symptoms. All Other Systems: Reviewed and Negative Exam & Diagnostic Data Last 24 Hrs of Vital Signs/I&O Vital Signs Date Time Temp Pulse Resp B/P B/P Pulse O2 O2 Flow FiO2 Mean Ox Delivery Rate 06/21 0858 98.0 60 18 180/72 98 Room Air 06/21 0801 97.0 64 18 153/67 97 Nasal 2.0L Cannula 06/21 0716 96.9 75 18 157/68 97 Nasal 2.0L Cannula 06/21 0541 97 Nasal 2.0L Cannula 06/21 0540 98.7 71 20 187/90 97 Nasal 2.0L Cannula Intake & Output 06/21 1600 06/21 0800 06/21 0000 Intake Total Output Total Balance Patient 94.347 kg Weight Weight Reported by Patient Measurement Method Physical Exam General Appearance Alert, Oriented X3, Cooperative, No Acute Distress Skin No Rashes, No Breakdown, No Significant Lesion Skin Temp/Moisture Exam: Warm/Dry Sepsis Skin Exam (color): Normal for Ethnicity HEENT Atraumatic, PERRLA, EOMI Neck Supple, No JVD Lymphatic no lad Cardiovascular Regular Rate, Normal S1, Normal S2, No Murmurs Lungs Clear to Auscultation, Normal Air Movement Abdomen Normal Bowel Sounds, Soft, No Tenderness Neurological Normal Speech, Strength at 5/5 X4 Ext, Normal Tone, Sensation Intact Extremities bilateral pedal edema 1+ Vascular Normal Pulses Diagnostic Data EKG Results Atrially sensed ventricular paced rhythm, rate of 68, CA 197, QTC of 498 inverted T waves noted in one aVR, aVL, V5 which are also present on the old EKG , left axis deviation. CXR Results no Acute cardiopulmonary findings. Assessment/Plan Assessment: In summary,Mr. Rodriguez is a 75-year-old gentleman, previous smoker and alcoholic (15-20 years ago), hypertensive, hyperlipidemic, diabetes mellitus type 2 complicated with neuropathy, previous history of insomnia, depression, adjustment disorder, amnesia, prior admission for recurrent falls, with prior admission in November 2015 for symptomatic bradycardia after which a dual-chamber pacemaker was placed by Dr. Blackman on 12/05/2015 was admitted again in April 2016 for acute exacerbation of CHF with elevated troponin and was transferred to [facility] for cardiac cath, found to have new ischemia cardiomyopathy and two-vessel CAD by cardiac cath including total RCA occlusion without obvious targets for PCI comes in again today from [facility] (Assisted living) with chest pain that lasted for 30 minutes to 1 hour prior to presentation around 5 AM on 06/21/2016, which seem to be sharp in nature, mild to moderate, stayed constant, did not radiate anywhere, was completely pain-free after being in the ER for more than 2 hours now. Family history significant for brother with a cardiac pacemaker in sinus bradycardia, diabetes, hypertension and myocardial infarction in other family members. 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 He was given aspirin enroute to the hospital. On arrival at the emergency department he was found to have a temperature of 98.7, pulse of 71, lowest in 60's, respiration of 20, blood pressure 187/90, he was 97% saturating on 2 L of nasal cannula. Relevant labs : no white count, H/H of 11.8/35.6, platelets 217, sodium 134 ( baseline 138), potassium 5.2, BUN and creatinine 35/1.2, glucose 398, troponins elevated to 0.88, d-dimer elevated to 297, chest x-ray did not show any acute cardiopulmonary findings. Admit the patient to telemetry floor for continuous cardiac monitoring along with ruling out acute coronary syndrome. Problem list along with assessment and plan. Problem #1 chest pain, rule out ACS. Patient has a significant cardiac history, status post pacemaker placement in November 2015, the chest pain as per him seems to be sharp in nature, however he has positive troponins therefore other possibilty could be NSTEMI, no acute ST-T wave changes on EKG, other possibility could be demand ischemia however, he does not have any fever, any infection, slightly high blood pressure or any obvious stress. * We'll admit the patient to cardiac telemetry floor. * Trend EKG and troponin, next one at 11 AM and 7 PM. * Continue to monitor vitals every shift. * Cardiology consult with Dr. Graham. * Aspirin was given enorute. * Continue aspirin. * Patient's heart rate is in 60s, holding the beta blockers for now, we will clarify with cardiology if the patient is to be started on beta blockers for now ,patient is on metoprolol 100 mg once daily at home * Keep the patient nothing by mouth in case if he needs to be transferred for cardiac cath. * ROCHELLE score of 4, 19.9% 14 the risk of recurrent MS or urgent revascularization , medium risk. * Echocardiogram. * Ct statin. #2 History of type 2 diabetes mellitus with peripheral neuropathy. * Hold metformin. * Patient is nothing by mouth therefore fingerstick every 6 with Novolin sliding scale. * Lantus 40 units every afternoon as per home dosage. * Continue gabapentin 100 mg 3 times a day for diabetic neuropathy #3 History of hypertension. * Monitor blood pressure. * continue home medication of losartan 100 mg once daily. * continue hydrochlorothiazide 25 mg once daily. * continue to monitor BUN/creatinine. #4 History of mood disorder, depression, insomnia * Continue Remeron 30 mg daily. * Continue Zoloft 100 mg daily. * Continue 150 mg once daily trazodone. DNR/DNI DVT px with IV heparin mild , Mod severe Pain pathway NPO. As Ranked By This Provider Problem List: 1. Cardiac pacemaker 2. Chest pain 3. Elevated troponin 4. DNI (do not intubate) 5. DNR (do not resuscitate) 6. DVT prophylaxis 7. Hyperglycemia Core Measures/Miscellaneous Acute Coronary Syndrome ACS Diagnosis: No Cerebrovascular Accident CVA/TIA Diagnosis: No Congestive Heart Failure CHF Diagnosis: No Venous Thromboembolism VTE Risk Factors: Age > 40 [facility] prophylaxis d/t: No contraindications No VTE Pharm Prophylaxis d/t: No contraindications VTE Diagnosis: No VTE Type: NONE VTE Confirmed by (Test): NONE Severe Sepsis Severe Sepsis Present: No Septic Shock Septic Shock Present: No Miscellaneous Documentation Attending Case Discussed With: MARYBETH SORIA PhD,MATT Resendez Primary Care Physician: FARIHA HALE MD Patient sees these Specialists DR Craft Level of Patient Care: Telemetry ZHENG SANTO MD 06/21/16 2219: Attending MD Review Statement Attending Statement Attending MD Statement: examined this patient, discuss w/resident/PA/COAT BASTER, agreed w/resident/PA/COAT BASTER, reviewed EMR data (avail), discussed with nursing, reviewed images, amended to note Attending Assessment/Plan: The patient is a 75 yo male with h/o HTN, HL, DM2 with neuropathy, carotid stenosis (complete left occlusion), s/p pacemaker (2016), h/o CHF who presented in the ED on the day of admission with c/o chest pain that began at 3:30 am. He had a previous transfer to [facility] 05/07 (unclear if he had cardiac catheterization). His chest pain occurred at rest. Physical Exam: VS: T 98.0, P 60, R 18, BP 153/67, PO 98% 2L HEENT: eyes- PERRLA, EOMI bertha- moist mucosa Neck: no JVD or bruits Chest: clear Cor: RRR, nl S1, S2 w/o murm Abd: BS+, soft, NT Ext: no edema Neuro: non-focal Labs/Tests- as above Impression/Plan: #Chest Pain- probable Acute Coronary Syndrome with positive troponin I in patient with known CAD. Plan: Admit to telemetry. Cardiology consult (done), IV heparin/Plavix/ASA, high dose Atorvastatin per Cardiology. May need cath pending clinical course. Obtain records from [facility]. #DM2- on insulin. Patient is NPO as unclear if will need cath. Plan: Follow sugars and sliding scale insulin coverage at present. #HTN- BP good at present. Plan: Will continue Losartan/HCTZ and follow BP. #Mood disorder/Depression/Insomnia- stable on meds. Plan: Continue Remeron, Zoloft, Trazodone. #Carotid Stenosis- no symptoms, complete left sided occlusion. Plan: Continue meds as above. #HL- on statin. Plan: High dose Atorvastatin per cardiology.
[2016-06-21] MEDS ORDERED: ASPIRIN81 M4 PO (07:50)
--- NOTE | 2016-06-21 07:59 | NUR ---
PT REMAINS CP FREE AT THIS AND DENIES ANY PAIN, 7045 PAIN MEDS NOT GIVEN DUE TO PT IS PAIN FREE. RESIDENT AT BEDSIDE
[2016-06-21] MEDS ORDERED: GABAPENTIN100 M2 PO (08:37)
--- NOTE | 2016-06-21 09:00 | NUR ---
PT REMAINS AWAKE AND ALERT, DENIES CP/OR ANY OTHER PAIN AT THIS TIME, PACED ON MONITOR WITH HR 64, HEPARIN DRIP CONTINUES TO INFUSE AT 20ML/HR, FS 292 , INSULIN COVERAGE WITH NOV R 8 UNITS GIVEN PER ORDER.
--- NOTE | 2016-06-21 09:12 | NUR ---
PT DOWNGRADED TO TELE; ADMITTED UNDER MD SANTO
--- NOTE | 2016-06-21 09:47 | NUR ---
REPORT TO ED IN THE ICU
--- NOTE | 2016-06-21 11:28 | Cons- Cardiology ---
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 The patient was discharged to a nursing facility from [facility] earlier this month. He now presents to [facility] with a chief complaint of low to moderate intensity left-sided chest pain which he describes as sharp in nature without radiation. Denies any associated nausea, diaphoresis, or shortness of breath. The symptoms started at rest early this morning when he awoke to get something to eat. The symptoms lasted for approximately 20 minutes and resolved spontaneously. Prior to the symptoms he had been feeling well with no exertional symptoms and reports no recent recurrent falls. Denies dizziness, headache, slurring of speech, fever, cough, orthopnea, paroxysmal nocturnal dyspnea, increasing lower extremity edema , or syncope. On my interview with the patient in the emergency room he was resting comfortably and was asymptomatic at the time. Allergies/Medications Allergies: Coded Allergies: No Known Allergies (06/07/16) Home Med List: Albuterol Sulfate 2.5 MG/3 ML (0.083 %) VIAL.NEB 1 Vial INH/ROSELINE Q4P PRN SOB ( Reported) Aspirin (Aspirin*) 81 MG TAB.CHEW 1 TAB PO DAILY HEART HEALTH (Reported) Cholecalciferol (Vitamin D3) (Vitamin D3) 1,000 UNIT CAPSULE 1 CAP PO 0900 SUPPLEMENT (Reported) Gabapentin 100 MG CAPSULE 1 CAP PO BID PAIN MX (Reported) Hydrochlorothiazide 25 MG TABLET 1 TAB PO DAILY BP/DIURETIC (Reported) Insulin Glargine,Hum.rec.anlog (Lantus Solostar) 100 UNIT/ML (3 ML) INSULN.PEN 40 UNITS SC QPM DIABETES (Reported) Insulin Lispro (Humalog Kwikpen U-100) 100 UNIT/ML INSULN.PEN 18 UNITS SC WM DM (Reported) Losartan Potassium 100 MG TABLET 1 TAB PO 0900 HTN (Reported) Metformin HCl (Metformin HCl ER) 500 MG [id number] 3 TAB PO 1630 DIABETES ( Reported) Metoprolol Succinate 100 MG TAB.ER.24H 1 TAB PO DAILY HTN (Reported) Mirtazapine (Remeron) 30 MG TABLET 1 TAB PO QPM DEPRESSION (Reported) Pravastatin Sodium (Pravachol) 80 MG TABLET 1 TAB PO 1630 CHOLESTEROL ( Reported) Ramelteon (Rozerem) 8 MG TABLET 1 TAB PO 2000 SLEEP (Reported) Sertraline HCl (Zoloft) 100 MG TABLET 1.5 TAB PO 2000 MENTAL HEALTH (Reported ) Tramadol HCl 50 MG TABLET 1 TAB PO Q8P PRN PAIN (Reported) Trazodone HCl 150 MG TABLET 1 TAB PO QHS PRN SLEEP (Reported) Current Medications: Current Medications Sig/Theodore Start time Last Medication Dose Route Stop Time Status Admin Acetaminophen 650 MG Q6P PRN 06/21 0745 AC PO Aspirin 81 MG DAILY 06/21 1000 AC PO Aspirin 325 MG ONCE ONE 06/21 0700 DC 06/21 PO 06/21 0701 0701 Aspirin 0 .STK-MED ONE 06/21 07 DC PO Gabapentin 100 MG BID 06/21 1000 AC PO Heparin Sodium 4,000 UNIT ONCE ONE 06/21 0700 DC 06/21 (Porcine) IV 06/21 07 0701 Heparin Sodium 25,000 UNIT Q24H 06/21 0700 AC 06/21 (Porcine) IV 0700 Sodium Chloride 500 ML Heparin Sodium 0 .STK-MED ONE 06/21 07 DC (Porcine) .ROUTE Insulin Detemir 40 UNITS QPM 06/21 2200 AC SC Insulin Human Regular 0 Q6 06/21 0840 AC 06/21 SC 0859 Insulin Human Regular 10 UNITS STAT STA 06/21 0626 DC 06/21 SC 06/21 06 0638 Losartan Potassium 100 MG 0900 / 0900 AC PO Mirtazapine 30 MG QPM 06/21 2200 AC PO Multivitamins 1 TAB DAILY 06/21 1000 AC PO Oxycodone HCl 5 MG Q6H 06/21 0745 AC PO Oxycodone/ 2 TAB Q6P PRN 06/21 0745 AC Acetaminophen PO Pravastatin Sodium 80 MG 1700 06/21 1700 AC PO Sertraline HCl 150 MG 06/21 AC PO Review of Systems Review of Systems: Review of systems as per HPI. The remainder of a 10 point review of systems was reviewed and was otherwise negative. 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 Assisted Living Who Do You Live With? self Services at Home: None Primary Language: Icelandic Smoking Status: Former Smoker ETOH Use: former use, quit now. Illicit Drug Use: denies illicit drug use Living Will? unknown Functional Ability ADLs Independent: dressing, eating, toileting, bathing. Ambulation: Walker was instructed to him but has not used it IADLs Independent: food prep, telephone. Needs Assist: shopping, housework, finances, transportation, medication admin. Exam & Diagnostic Data Vital Signs and I&O Vital Signs Date Time Temp Pulse Resp B/P B/P Pulse O2 O2 Flow FiO2 Mean Ox Delivery Rate 06/21 1030 97 Nasal 2.0L Cannula 06/21 0858 98.0 60 18 180/72 98 Room Air 06/21 0801 97.0 64 18 153/67 97 Nasal 2.0L Cannula 06/21 0716 96.9 75 18 157/68 97 Nasal 2.0L Cannula 06/21 0541 97 Nasal 2.0L Cannula 06/21 0540 98.7 71 20 187/90 97 Nasal 2.0L Cannula Intake & Output 06/21 1600 06/21 0806/21 0000 06/20 1600 06/20 0806/20 0000 Intake Total Output Total Balance Patient 208 lb 208 lb Weight Weight Bed scale Reported by Patient Measurement Method Physical Exam: General: no apparent distress. Alert. Eyes: No obvious scleral icterus. HEENT: No jugular venous distention or abnormal jugular venous pulsations. Cardiovascular: Normal intensity S1/S2. 2/6 systolic murmur. Left-sided pacemaker noted. Respiratory: Lungs clear to auscultation bilaterally. Abdomen: Distended without guarding, nontender Musculoskeletal: No clubbing or cyanosis noted, trace lower extremity edema Skin: Warm Neurologic: No gross focal deficits noted. Labs/Chiki Results: Laboratory Tests 06/21 0550 Chemistry Sodium (137 - 145 mmol/L) 134 L Potassium (3.5 - 5.1 mmol/L) 5.2 H Chloride (98 - 107 mmol/L) 97 L Carbon Dioxide (22 - 30 mmol/L) 23 Anion Gap (5 - 16) 13 BUN (9 - 20 mg/dL) 35 H Creatinine (0.7 - 1.2 mg/dL) 1.2 Estimated GFR (>60 ml/min) 59 L BUN/Creatinine Ratio (7 - 25 %) 29.2 H Glucose (65 - 99 mg/dL) 398 H Calcium (8.4 - 10.2 mg/dL) 9.2 Phosphorus (2.5 - 4.5 mg/dL) 4.1 Magnesium (1.6 - 2.3 mg/dL) 1.7 Total Bilirubin (0.2 - 1.3 mg/dL) 0.8 AST (17 - 59 U/L) 32 ALT (21 - 72 U/L) 39 Alkaline Phosphatase (< 127 U/L) 66 Troponin I (<0.11 ng/ml) 0.88 *H [id number] Pept (<125 pg/mL) Pending Total Protein (6.3 - 8.2 g/dL) 6.9 Albumin (3.5 - 5.0 g/dL) 3.8 Globulin (1.9 - 4.2 gm/dL) 3.1 Albumin/Globulin Ratio (1.1 - 2.2 %) 1.2 Coagulation APTT (25 - 37 SEC) 31 D-Dimer (70 - 232 ng/ml) 297 H Hematology CBC w Diff NO MAN DIFF REQ WBC (4.8 - 10.8 /CUMM) 8.2 RBC (4.70 - 6.10 /CUMM) 4.30 L Hgb (14.0 - 18.0 G/DL) 11.8 L Hct (42 - 52 %) 35.6 L MCV (80.0 - 94.0 FL) 82.6 MCH (27.0 - 31.0 PG) 27.4 RDW (11.5 - 14.5 %) 17.7 H Plt Count (130 - 400 /CUMM) 217 MPV (7.4 - 10.4 FL) 8.3 Gran % (42.2 - 75.2 %) 78.7 H Lymphocytes % (20.5 - 51.1 %) 10.3 L Monocytes % (1.7 - 9.3 %) 8.8 Eosinophils % (0 - 5 %) 1.7 Basophils % (0.0 - 2.0 %) 0.5 Absolute Granulocytes (1.4 - 6.5 /CUMM) 6.5 Absolute Lymphocytes (1.2 - 3.4 /CUMM) 0.8 L Absolute Monocytes (0.10 - 0.60 /CUMM) 0.7 H Absolute Eosinophils (0.0 - 0.7 /CUMM) 0.1 Absolute Basophils (0.0 - 0.2 /CUMM) 0 PUBS MCHC (33.0 - 37.0 G/DL) 33.1 Diagnostic Data EKG Results Tracing was personally reviewed and shows A sensedV paced rhythm CXR Results IMPRESSION: No acute cardiopulmonary findings. Cardiac silhouette remains prominent. Other Results Recent echo report at [facility] showed an ejection fraction of 30% with reported mild aortic stenosis Assessment/Plan Assessment/Plan 1. Possible recurrent NSTEMI with recent non-ST elevation myocardial infarction 04/2016 with new ischemic cardiopathy and two-vessel CAD by cardiac catheterization at (including total RCA oclusion) without obvious targets for PCI per report 2. High-grade heart block status post permanent pacemaker 2015 3. Previous history of recurrent falls/drop atacks 4. Hx of bilateral carotid stenosis with complete occlusion of the left carotid internal artery (felt not to be a surgical candidate by vascular surgery) 5. Aortic stenosis 6. Hypertension, hyperlipidemia, and diabetes mellitus 7. Hx of mild cognitive impairment The patient presents with transient chest pain which resolved spontaneously and has not recurred. ECG is limited for interpretation of acute ischemia given the paced rhythm. Given his known recent non-ST elevation myocardial infarction with elevated troponin a recurrent NSTEMI is in the differential diagnosis. Recent cardiac catheterization as described above did not show obvious targets for revascularization and we will need to proceed with optimal medical therapy for the time being. I will review the recent catheterization images. Would maintain the patient on intravenous heparin drip and would continue on dual antiplatelet therapy (ASA/Plavix) and would give atorvastatin 80 mg by mouth daily. Would increase the patient's Toprol-XL to 200 mg PO daily. Continue the patient's ARB while monitoring renal function/K+. Obtain a repeat echocardiogram. Recommend additional antianginal therapy with Ranexa 500 mg PO BID and will consider adding Imdur if blood pressure tolerates after the increase in the beta yana. The patient he maintained on telemetry for now. Recommend following serial troponins until they begin to decrease. Brendon Carr MD [facility] Consult Acknowledgment - Thank you for your consult request.
--- NOTE | 2016-06-21 12:00 | NUR ---
PT ADMITTED FROM ER TO [facility] TELEMETRY HOLD. HE IS ALERT AND COOPERATIVE. DENIES PAIN OR SHORTNESS OF BREATH. ECHO DONE. 2ND TROPONN DRAWN AT 1130.
[2016-06-21 16:00] VITALS: BP 124/64
[2016-06-21 18:42] LABS: PTT 31 SEC (25-37)
--- NOTE | 2016-06-21 21:16 | ECHOCARDIOGRAM REPORT ---
ELOY LI Age: 75 : 1940 Gender: M Exam Date: 06/21/2016 10:57 Exam Location: [facility] Ht (in): 70 Wt (lb): 208 BSA: 2.18 BP: 180 / 72 Ordering Physician: PIA COLLINS MD Referring Physician: PIA COLLINS MD Technologist: Miguel A Guzmán [facility] Room Number: 106 Indications: Chest Pain Rhythm: Technical Quality: Technically difficult study FINDINGS Left Ventricle Left ventricular cavity size normal. Left ventricular wall thickness mildly increased. Mild global hypokinesis with additional severe hypokinesis of the inferior wall, mid to distal anteroseptum, and apex. Left ventricular ejection fraction is estimated at 30 %. Right Ventricle Normal right ventricular size and function. Right Atrium Normal right atrial size. Left Atrium Normal left atrial size. Mitral Valve No mitral stenosis. Mild mitral annular calcification. Mild mitral regurgitation. Aortic Valve Diffuse thickening of the aortic valve cusps with reduced excursion. [id number] aortic stenosis (MALLORY estimated at 1.5 cm2 by continuity). Tricuspid Valve Structurally normal tricuspid valve. Mild tricuspid regurgitation. Right ventricular systolic pressure estimated to be elevated at > 55 mmHg. Pulmonic Valve Pulmonic valve not well visualized, grossly normal. Pericardium No pericardial effusion. Great Vessels Normal size aortic root and proximal ascending aorta. CONCLUSIONS Technically difficult study. Left ventricular cavity size normal. Left ventricular wall thickness mildly increased. Mild global hypokinesis with additional severe hypokinesis of the inferior wall, mid to distal anteroseptum, and apex. Left ventricular ejection fraction is estimated at 30 %. Normal right ventricular size and function. Diffuse thickening of the aortic valve cusps with reduced excursion. [id number] aortic stenosis (MALLORY estimated at 1.5 cm2 by continuity). Right ventricular systolic pressure estimated to be elevated at > 55 mmHg. Siddharth Carr M.D. (Electronically Signed) Final Date: 21 Jun 2016 21:15 MEASUREMENTS (Male / Female) Normal Values 2D ECHO LV Diastolic Diameter PLAX 5.4 cm 4.2 - 5.9 / 3.9 - 5.3 cm LV Systolic Diameter PLAX 3.7 cm 2.1 - 4.0 cm LV Fractional Shortening PLAX 31.5 % 25 - 46 % LV Ejection Fraction 2D Teich 58.9 % IVS Diastolic Thickness 1.3 cm LVPW Diastolic Thickness 1.5 cm LV Relative Wall Thickness 0.5 RV Internal Dim ED PLAX 3.4 cm 1.9 - 3.8 cm LVOT Diameter 1.9 cm Aortic Root Diameter 3.0 cm LA Systolic Diameter LX 4.1 cm 3.0 - 4.0 / 2.7 - 3.8 cm LA Volume 43.0 cm 18 - 58 / 22 - 52 cm Ascending Aorta Diameter 2.7 cm DOPPLER AV Peak Velocity 198.0 cm/s AV Peak Gradient 15.7 mmHg AV Mean Velocity 139.0 cm/s AV Mean Gradient 9.0 mmHg AV Velocity Time Integral 48.0 cm LVOT Peak Velocity 101.0 cm/s LVOT Peak Gradient 4.1 mmHg LVOT Mean Velocity 57.0 cm/s LVOT Mean Gradient 2.0 mmHg LVOT Velocity Time Integral 25.7 cm LVOT Stroke Volume 72.9 cm AV Area Cont Eq vti 1.5 cm AV Area Cont Eq pk 1.4 cm MV Peak Velocity 111.0 cm/s MV Peak Gradient 4.9 mmHg MV Mean Velocity 68.3 cm/s MV Mean Gradient 2.0 mmHg Mitral E Point Velocity 120.0 cm/s Mitral A Point Velocity 85.9 cm/s Mitral E to A Ratio 1.4 MV PHT Velocity 113.0 cm/s MV Deceleration Calloway 245.0 cm/s MV Pressure Half Time 138.4 ms MV Area PHT 1.6 cm MV Deceleration Time 299.0 ms MR Peak Velocity 511.0 cm/s MR Peak Gradient 104.4 mmHg TR Peak Velocity 341.0 cm/s TR Peak Gradient 46.5 mmHg Right Atrial Pressure 5.0 mmHg Pulmonary Artery Systolic Pressu 51.5 mmHg Right Ventricular Systolic Press 51.5 mmHg PV Peak Velocity 102.0 cm/s PV Peak Gradient 4.2 mmHg PV Mean Velocity 65.3 cm/s PV Mean Gradient 2.0 mmHg PV Velocity Time Integral 26.0 cm
--- NOTE | 2016-06-21 22:19 | Admission Certification ---
Admission Certification Certification Statement - As attending physician, I certify that at the time of - admission, based on clinical presentation, severity of - symptoms, need for further diagnostic testing and - therapeutic interventions, and risk of adverse outcomes - without in-hospital treatment, in my clinical assessment, - this patient requires an acute hospital stay for a minimum - of two nights or longer. I have also considered psychsocial - factors such as support system, advanced age, financial - issues, cognitive issues, and failed out-patient treatments, - past re-admission history, safety of patient, and lack of - compliance as applicable. Specific rationale supporting this admission is: The patient presents with chest pain and elevated troponin I level c/w NTEMI. Needs admit to telemetry. Cardiology consult, serial troponin levels, increased beta yana, heparin IV, Plavix/ASA. Pending clinical course may need cath.
[2016-06-22] VITALS: BP 150/90
[2016-06-22 02:05] LABS: ABSOLUTE BASOPHIL COUNT 0 /CUMM (0.0-0.2); ABSOLUTE EOSINOPHIL COUNT 0.1 /CUMM (0.0-0.7); ABSOLUTE GRANULOCYTE CT 6.4 /CUMM (1.4-6.5); ABSOLUTE LYMPH COUNT 1.2 /CUMM (1.2-3.4); ABSOLUTE MONOCYTE COUNT 0.8 /CUMM (0.10-0.60); BASOPHIL % 0.5 % (0.0-2.0); EOSINOPHIL % 1.3 % (0-5); GRANULOCYTE % 74.6 % (42.2-75.2); HEMATOCRIT 31.6 % (42-52); MEAN CORPUSCULAR HGB 27.2 PG (27.0-31.0); MEAN CORPUSCULAR HGB CONC 33.6 G/DL (33.0-37.0); MEAN CORPUSCULAR VOLUME 81.1 FL (80.0-94.0); MEAN PLATELET VOLUME 8.1 FL (7.4-10.4); PLATELET COUNT 210 /CUMM (130-400); RBC DISTRIBUTION WIDTH 17.8 % (11.5-14.5); WHITE BLOOD CELL COUNT 8.5 /CUMM (4.8-10.8)
[2016-06-22 02:14] LABS: PTT 55 SEC (25-37)
--- NOTE | 2016-06-22 04:31 | NUR ---
PT LERT AND ABLE TO VERBALIZE NEEDS. PACED RHYTHM,60'S. HEPARIN GTT CONTINUED AT 16.6UNITS/KG/H=31.4ML/H. NO EVIDENCE OF ACTIVE BLEED. SATURATION 94% ON 1L O2.
--- NOTE | 2016-06-22 07:08 | PN- Housestaff ---
YESI SORIA,DIONY 06/22/16 0708: Subjective Follow-up For: Chest pain, recurrent NSTEMI Ischemic cardiomyopathy with EF 30% S/P PPM in 2016 for high grade AV block Bilateral carotid stenosis HTN HLD DM2 Complaints: no complaints Tele-Events Since Last Visit: No overnight telemetry events, HR 60-70, atrial sensed ventricular paced. Subjective: Patient seen and examined at bedside this AM. He was laying comfortably in chair without complaint. He denies diaphoresis, chest pain, shortness of breath, palpitations, nausea, vomiting, abdominal pain or further symptoms. Patient tolerating breakfast/diet well. Review of Systems Constitutional: Denies: chills, fever, malaise. EENTM: Denies: visual changes, hearing changes, nasal congestion. Cardiovascular: Denies: chest pain, orthopena, palpitations, syncope. Respiratory: Denies: cough, short of breath. Gastrointestinal: Denies: abdominal pain, nausea, vomiting. Genitourinary: Denies: dysuria. Musculoskeletal: Reports: back pain (Chronic, currently minimal). Skin: Denies: rash. Neurological/Psychological: Denies: confusion, headache, tremors. Hematologic/Endocrine: Denies: bruising, bleeding. Immunologic/Allergic: Denies: splenectomy. Objective Last 24 Hrs of Vital Signs/I&O Vital Signs Date Time Temp Pulse Resp B/P B/P Pulse O2 O2 Flow FiO2 Mean Ox Delivery Rate 06/22 0816 60 160/80 06/22 0000 94 Nasal 1.0L Cannula 06/22 0000 97.6 68 26 150/90 94 Nasal 1.0L Cannula 06/21 1600 92 Nasal 1.0L Cannula 06/21 1600 98.0 64 20 124/64 92 Nasal 1.0L Cannula 06/21 1405 70 130/70 06/21 1203 97 Nasal 2.0L Cannula 06/21 1030 97 Nasal 2.0L Cannula Intake & Output 06/22 1600 / 0800 06/22 0000 Intake Total 319 500 Output Total 200 400 Balance 119 100 Intake, IV 319 Intake, Oral 500 Output, Urine 200 400 Physical Exam General Appearance: Alert, Oriented X3, Cooperative, No Acute Distress Skin: No Significant Lesion Skin Temp/Moisture Exam: Warm/Dry HEENT: Atraumatic, EOMI, Mucous Membr. moist/pink Neck: Supple, No JVD Lymphatic: Cervical nl Cardiovascular: Regular Rate, Normal S1, Normal S2, +BALAJI RUSB Lungs: Normal Air Movement, No added sounds, decreased breath sounds bilateral bases Abdomen: Obese, + BS x 4 quadrants, no tenderness to palpation, no rebound/ guarding Neurological: Normal Speech, Normal Tone Extremities: No Clubbing, No Cyanosis, 1-2+ edema of bilateral lower extremities to level of upper shins Vascular: Pulses Symmetrical Current Medications: Current Medications Sig/Theodore Start time Last Medication Dose Route Stop Time Status Admin Acetaminophen 650 MG Q6P PRN 06/21 0745 AC PO Aspirin 81 MG DAILY 06/21 1000 AC PO Clopidogrel Bisulfate 75 MG DAILY 06/21 1159 AC 06/21 PO 1406 Furosemide 20 MG ONCE ONE 06/22 0900 DC IV 06/22 0901 Gabapentin 100 MG BID 06/21 1000 AC 06/21 PO 2301 Heparin Sodium 2,820 UNIT BOLUS ONE 06/22 0245 DC 06/22 (Porcine) IV 06/22 0246 0245 Heparin Sodium 10,000 UNIT .STK-MED ONE 06/21 2032 DC (Porcine) IV 06/21 203 Heparin Sodium 25,000 UNIT Q24H 06/21 0700 AC 06/22 (Porcine) IV 0550 Sodium Chloride 500 ML Insulin Aspart 0 TIDAC 06/22 0800 AC 06/22 SC 0816 Insulin Detemir 40 UNITS QPM / 2200 AC 06/21 SC 2300 Insulin Human Regular 0 Q6 / 0840 DC 06/21 SC 1854 Losartan Potassium 100 MG 0900 / 0900 AC 06/22 PO 0816 Metoprolol Succinate 200 MG DAILY 06/21 1200 AC 06/21 PO 1405 Mirtazapine 30 MG QPM 05/01 2200 AC 05 PO 2302 Multivitamins 1 TAB DAILY 06/21 1000 AC 06/21 PO 1406 Oxycodone HCl 5 MG Q6H PRN 06/22 0845 AC PO Oxycodone HCl 5 MG Q6H 06/21 0745 DC 06/22 PO 0141 Oxycodone/ 2 TAB Q6P PRN 06/21 0745 AC Acetaminophen PO Pravastatin Sodium 80 MG 1700 05 1700 AC 06/21 PO 1856 Ranolazine 500 MG BID 06/21 1201 AC 06/21 PO 2301 Sertraline HCl 150 MG 2000 06/21 2000 AC 06/21 PO 2024 Orders Fingersticks (last 24 hrs): Remain elevated, range 214-407 in last 24 hours. EKG Findings: Atrial sensed, ventricular paced rhythm. ECHO Findings: CONCLUSIONS Technically difficult study. Left ventricular cavity size normal. Left ventricular wall thickness mildly increased. Mild global hypokinesis with additional severe hypokinesis of the inferior wall, mid to distal anteroseptum, and apex. Left ventricular ejection fraction is estimated at 30 %. Normal right ventricular size and function. Diffuse thickening of the aortic valve cusps with reduced excursion. [id number] aortic stenosis (MALLORY estimated at 1.5 cm2 by continuity). Right ventricular systolic pressure estimated to be elevated at > 55 mmHg. Radiology Findings: CXR: IMPRESSION: No acute cardiopulmonary findings. Cardiac silhouette remains prominent. Assessment/Plan Assessment: Mr. Lord is a pleasant 75 year old male with PMH previous cigarette abuse (quit 20 years ago), previous alcohol abuse (quit 15-20 years ago), HTN, HLD, major depressive disorder, type 2 diabetes mellitus, diabetic peripheral neuropathy, amnesia, adjustment disorder, history of recurrent falls, carotid stenosis with complete left internal carotid artery occlusion, aortic stenosis, symptomatic bradycardia with second degree heart block s/p MRI- compatible dual-chamber PPM (November 2015), ischemic cardiomyopathy and two- vessel CAD by cardiac cath including total RCA occlusion without obvious targets for PCI who presents from [facility] with chief complaint of chest pain. In the ED: Vital signs included T 98.7, HR 71, RR 20, BP 187/90 and O2 saturation of 97% on 2 L NC. Labs were significant for normal; WBC, H/H of 11.8/ 35.6, plt 217, Na 134 (baseline 138), K 5.2, BUN/cre 35/1.2, glu 398, troponin elevated to 0.88, d-dimer elevated to 297. CXR did not show any acute cardiopulmonary findings. EKG showed atrial sensed ventricular paced rhythm, HR 68, NV 197, QTC 498. Patient is a telemetry hold in the ICU and the following is the management: 1. Recurrent NSTEMI in the setting of ischemic cardiomyopathy with EF 30% * Patient developed troponins on admission with peak of 1.62 * EKG atrial sensed/ventricular paced and therefore limited in acute ischemia * Continue optimal medical tx as his recent cath showed no obvious regions for revascularization * Continue IV heparin, aspirin, plavix, toprol XL 200 mg PO daily, atorvastatin 80 mg PO daily and ranexa 500 mg PO BID * IV lasix 20 mg x 1 as recommended by cardiology due to elevated proBNP and lower extremity edema * Consider imdur if CP recurs and BP can tolerate it * Repeat echo showed mild global hypokinesis with severe hypokinesis of inferior wall, mid to distal aneroseptum and apex, LVEF 30%, mild to moderate , RVSP > 55 * Continue telemetry 2. Type 2 Diabetes mellitus with peripheral neuropathy * Continue low dose NSS for now as we have restarted 40 U SC levemir QPM * If accuchecks remain uncontrolled, increase to medium dose NSS * Accuchecks TIDACHS 3. HTN, HLD * Monitor BP closely * If BP remains elevated, consider switching losartan to valsartan as recommened by christy (of note, we do not carry valsartan in the hospital so consider a different medication- avoid amlodipine) * For now, pravastatin 80 mg PO daily, toprol XL 200 mg PO daily, losartan 100 mg PO daily 4. Mood disorder, depression, insomnia * Continue zoloft 150 mg PO daily, mirtazapine 30 mg PO QPM, neurontin 100 mg PO BID 5. History of recurrent falls * Patient notes history of frequent falls * Will obtain PT consult, f/u recs 6. Chronic pain * Patient reports that he is on roxicodone 5 mg PO Q6 at home but rarely takes more than 2 tabs daily; he requests his meds be made only as needed, thus we have changed it to Q6P DNR/DNI DVTP: IV heparin Mild to severe pain pathway CC3 diet Problem List: 1. NSTEMI (non-ST elevated myocardial infarction) 2. Elevated troponin 3. Cardiac pacemaker 4. AV block 5. Multiple falls 6. DNR (do not resuscitate) 7. DNI (do not intubate) 8. DVT prophylaxis 9. Chest pain 10. HLD (hyperlipidemia) 11. HTN (hypertension) 12. Aortic stenosis 13. Carotid stenosis, bilateral 14. Diabetes mellitus type 2 in obese Pain Ratin Pain Location: n/a Pain Goal: Remain pain free Pain Plan: Roxicodone 5 mg PO Q6H PRN chronic pain, percocet for severe pain. Tomorrow's Labs & Rationales: CBC (on heparin drip), ICU lab bundle (s/p lasix, monitor renal function/glu) DVT/Prophylaxis: pharmacological, Heparin Consulting Request: Consulting Specialty: Cardiology Consulting Physician: Dr. Lilly MD Reason for Consult: Elevated troponins ZHENG SANTO MD 06/22/16 2119: Attending MD Review Statement Attending Statement Attending MD Statement: examined this patient, discuss w/resident/PA/OIL TESTER, agreed w/resident/PA/OIL TESTER, reviewed EMR data (avail), discussed with nursing, amended to note Attending Assessment/Plan: The patient was seen and discussed with house staff. Appreciate cardiology input. Lasix given. Continue IV heparin as per cardiology.
[2016-06-22 08:00] VITALS: BP 160/80
--- NOTE | 2016-06-22 08:59 | PN- Cardiology ---
Subjective Subjective: Patient feels well. He is sitting in bed eating breakfast. He denies chest pain or shortness of breath. Review of Systems: Eyes no blurred or double vision Ears no deafness or ringing Nose and throat no recurrent sinusitis Lungs per history of present illness Heart per history of present illness Abdomen no nausea vomiting Musculoskeletal occasional muscle and joint pains Psych no anxiety or depression Neuro without recurrent headache or seizures Endocrine no heat or cold intolerance Objective Vital Signs and I&Os Vital Signs Date Time Temp Pulse Resp B/P B/P Pulse O2 O2 Flow FiO2 Mean Ox Delivery Rate 06/22 0816 60 160/80 06/22 0000 94 Nasal 1.0L Cannula 06/22 0000 97.6 68 26 150/90 94 Nasal 1.0L Cannula 06/21 1600 92 Nasal 1.0L Cannula 06/21 1600 98.0 64 20 124/64 92 Nasal 1.0L Cannula 06/21 1405 70 130/70 06/21 1203 97 Nasal 2.0L Cannula 06/21 1030 97 Nasal 2.0L Cannula 06/21 0858 98.0 60 18 180/72 98 Room Air Intake & Output 06/22 1600 06/22 0800 06/22 0000 06/21 1600 06/21 0800 06/21 0000 Intake Total 319 500 760 Output Total 200 400 500 Balance 119 100 260 Intake, IV 319 160 Intake, Oral 500 600 Number 1 Bowel Movements Output, Urine 200 400 500 Patient 208 lb 208 lb Weight Weight Bed scale Reported by Patient Measurement Method Physical Exam: Patient is a well-developed well-nourished male appearing mildly dyspneic HEENT is unremarkable Neck is supple there is no JVD Lungs decreased breath sounds at the bases Heart regular rhythm S1 and S2 are normal no gallops or rubs 1/6 systolic ejection murmur the right upper sternal border Abdomen bowel sounds positive Extremities 2+ edema Current Medications: Current Medications Sig/Theodore Start time Last Medication Dose Route Stop Time Status Admin Acetaminophen 650 MG Q6P PRN 06/21 0745 AC PO Aspirin 81 MG DAILY 06/21 1000 AC PO Clopidogrel Bisulfate 75 MG DAILY 06/21 1159 AC 06/21 PO 1406 Gabapentin 100 MG BID 06/21 1000 AC 06/21 PO 2301 Heparin Sodium 2,820 UNIT BOLUS ONE 06/22 0245 DC 06/22 (Porcine) IV 06/22 245 024 Heparin Sodium 10,000 UNIT .STK-MED ONE 06/21 2032 DC (Porcine) IV 06/21 203 Heparin Sodium 25,000 UNIT Q24H 06/21 0700 AC 06/22 (Porcine) IV 0550 Sodium Chloride 500 ML Insulin Aspart 0 TIDAC 06/22 0800 AC 06/22 SC 0816 Insulin Detemir 40 UNITS QPM / 2200 AC 06/21 SC 2300 Insulin Human Regular 0 Q6 / 0840 DC 06/21 SC 1854 Losartan Potassium 100 MG 0900 06/22 0900 AC 06/22 PO 0816 Metoprolol Succinate 200 MG DAILY 06/21 1200 AC 06/21 PO 1405 Mirtazapine 30 MG QPM / 2200 AC 06/21 PO 2302 Multivitamins 1 TAB DAILY 06/21 1000 AC 06/21 PO 1406 Oxycodone HCl 5 MG Q6H PRN 06/22 0845 UNVr PO Oxycodone HCl 5 MG Q6H 06/21 0745 DC 06/22 PO 0141 Oxycodone/ 2 TAB Q6P PRN 06/21 0745 AC Acetaminophen PO Pravastatin Sodium 80 MG 1700 06/21 1700 AC 06/21 PO 1856 Ranolazine 500 MG BID 06/21 1201 AC 06/21 PO 2301 Sertraline HCl 150 MG 2000 06/22 1999 AC 06/21 PO 2024 Results Last 48 Hrs of Labs/Mics: Laboratory Tests 06/22/16 0150: Anion Gap 11, Estimated GFR 59 L, Glucose 235 H, Calcium 9.2, Phosphorus 3.6, Magnesium 2.3, Total Bilirubin 0.7, AST 32, ALT 36, Albumin 3.3 L, APTT 55 H, CBC w Diff NO MAN DIFF REQ, RBC 3.90 L, MCV 81.1, MCH 27.2, RDW 17.8 H, MPV 8.1, Gran % 74.6, Lymphocytes % 14.4 L, Monocytes % 9.2, Eosinophils % 1.3, Basophils % 0.5, Absolute Granulocytes 6.4, Absolute Lymphocytes 1.2, Absolute Monocytes 0.8 H, Absolute Eosinophils 0.1, Absolute Basophils 0, PUBS MCHC 33.6 06/21/16 2300: Troponin I 1.13 *H 06/21/16 1900: Troponin I Cancelled 06/21/16 1730: Troponin I 1.62 *H, APTT 31 06/21/16 1100: Troponin I 1.58 *H 06/21/16 0550: Anion Gap 13, Estimated GFR 59 L, BUN/Creatinine Ratio 29.2 H, Glucose 398 H, Calcium 9.2, Phosphorus 4.1, Magnesium 1.7, Total Bilirubin 0.8, AST 32, ALT 39, Alkaline Phosphatase 66, Troponin I 0.88 *H, Gou-G-Wgiakvqtoeg Pept 3920 H, Total Protein 6.9, Albumin 3.8, Globulin 3.1, Albumin/Globulin Ratio 1.2, APTT 31, D-Dimer 297 H, CBC w Diff NO MAN DIFF REQ, RBC 4.30 L, MCV 82.6, MCH 27.4, RDW 17.7 H, MPV 8.3, Gran % 78.7 H, Lymphocytes % 10.3 L, Monocytes % 8.8, Eosinophils % 1.7, Basophils % 0.5, Absolute Granulocytes 6.5, Absolute Lymphocytes 0.8 L, Absolute Monocytes 0.7 H, Absolute Eosinophils 0.1, Absolute Basophils 0, PUBS MCHC 33.1 Telemetry personally reviewed ventricular paced Recent Imaging Studies: Echocardiogram CONCLUSIONS Technically difficult study. Left ventricular cavity size normal. Left ventricular wall thickness mildly increased. Mild global hypokinesis with additional severe hypokinesis of the inferior wall, mid to distal anteroseptum, and apex. Left ventricular ejection fraction is estimated at 30 %. Normal right ventricular size and function. Diffuse thickening of the aortic valve cusps with reduced excursion. Tpfq-vs-zntxtydo aortic stenosis (MALLORY estimated at 1.5 cm2 by continuity). Right ventricular systolic pressure estimated to be elevated at > 55 mmHg. Siddharth Carr M.D. Assessment/Plan Assessment/Plan 1. Recurrent NSTEMI with recent non-ST elevation myocardial infarction 04/2016 with new ischemic cardiopathy and two-vessel CAD by cardiac catheterization at (including total RCA oclusion) without obvious targets for PCI per report. Troponins are trending down 2. High-grade heart block status post permanent pacemaker 2015 3. Previous history of recurrent falls/drop atacks 4. Hx of bilateral carotid stenosis with complete occlusion of the left carotid internal artery (felt not to be a surgical candidate by vascular surgery) 5. Aortic stenosis mild on recent echocardiogram 6. Hypertension, hyperlipidemia, and diabetes mellitus 7. Hx of mild cognitive impairment 8. Ischemic myopathy ejection fraction 30% patient refused LifeVest Recommendations 1. Continue IV heparin along with aspirin and Plavix 2. His BNP was elevated on admission, he has edema and appears mildly dyspneic therefore would recommend Lasix 20 mg IV 1. 3. Continue to monitor blood pressure. If it remains elevated consider changing losartan to valsartan for better blood pressure control. Given his edema would not add amlodipine. 4. If chest pain recurs considering adding Imdur blood pressure tolerates 5. Maintain telemetry Continue telemetry? Yes
[2016-06-22 09:31] LABS: PTT 59 SEC (25-37)
--- NOTE | 2016-06-22 11:23 | NUR ---
@0800-PT ALERT AND ORIENTED, COOP. IMPULSIVE AT TIMES. BEDALARM IN PLACE. ROXICODONE SCHED Q6HRS BUT PT REF TO TAKE AT THIS TIME DUE TO HE STATES HE IS NOT IN PAIN AT THIS TIME. REPORTED TO [employer] T[employer]ER AND ROXICODONE CHANGED TO Q6HRS PRN. CONT ON 1LNC. O2SAT 94%. LUNGS CLEAR DIM TO BASES. DENIES SOB. IV LASIX X 1 ORD PER HOUSESTAFF. PACED HR 60S. PACER TO LCW. DENIES CP AT THIS TIME. HEP GTT CONT TO INFUSE AT 16.6UNITS/KG/HR WITH NEXT PTT DUE AT 0900. BP STABLE 160/80-MEDICATED WITH PO COZAAR AT THIS TIME. HH DIET PROVIDED-REPORTED TO HOUSESTAFF-ACCUCHECK RANGE >200. PT CHANGED TO C3 DIET AND NOVOLOG SS INCREASED AT THIS TIME. URINAL AT BEDSIDE BUT PT INC OF LARGE AMT OF URINE AT THIS TIME. PT STATES HE KNOWS WHEN HE NEEDS TO VOID BUT MISSED URINAL THIS AM. ALPS IN PLACE. +2 EDEMA NOTED TO BILAT FEET. +CMS. BANDAIDS NOTED TO BILAT 2ND TOES-BANDAIDS REMOVED AT THIS TIME-SMALL 0.6 BUT 0.6CM OPEN FULL THICKNESS WOUND WITH YELLOW SLOUGH NOTED ON R 2ND TOE-WOUND VENKATESH TATE AT BEDSIDE TO ASSESS-XEROFORM DSG PLACED COVERED WITH TELFA AND SPANDAGE. SMALL ABRASION 1.0X 0.5CM NOTED TO L 2ND TOE-AREA CLEANSED WITH BETADINE AND LEFT OPEN TO AIR. CONT TO MONITOR CLOSELY, CALL DRU PINEDA.
--- NOTE | 2016-06-22 11:36 | NUR ---
@1000-PTT 59, SUBTHERAPEUTIC. HEP BOLUS 2800UNIT IV ADMINISTERED PER PROTCOL AND GTT INCREASED BY 2UNITS. HEP GTT NOW INFUSING AT 18.6UNITS/KG/HR WITH NEXT PTT AT 1600. MEDS ADMINISTERED ORD. PT EVAL ORD DUE TO PT HAVING MULT FALLS AT HOME WITH USE OF CANE AND WALKER AND REPORTED UNSTEADY GAIT WHEN NURSING ATTEMPTED OOB YESTERDAY. CONT TO MONITOR, CALL GONSALES WITHIN REACH.
--- NOTE | 2016-06-22 11:39 | NUR ---
@1130-PT INC OF LARGE AMTS OF URINE. PT UNAWARE OF INC EPISODE. [place] CATH PLACED AT THIS TIME AFTER INC CARE PROVIDED. PT AWARE OF [place] PLACED.
[2016-06-22 16:00] VITALS: BP 128/84
--- NOTE | 2016-06-22 17:29 | NUR ---
WOUND CARE: REPORTED BY ICU STAFF THAT PT IS IN NEED OF PODIATRIC CONSULT - MESSAGE SENT TO DR ROSALES FOR CONSULT REQUEST
[2016-06-22 17:50] LABS: PTT 68 SEC (25-37)
--- NOTE | 2016-06-22 22:08 | NUR ---
PT WAS PULLING AT [place] CATH AND HAD LOOSENED IT. OFFERED TO PLACE NEW [place] CATH AND PATIENT REFUSED. INSTRUCTED PATIENT TO CALL FOR ASSISTANCE WITH URINAL WHEN NEED TO VOID. PT VERBALIZED UNDERSTANDING. WILL CONTINUE TO MONITOR FOR INCONTINENCE.
[2016-06-23] VITALS: BP 122/70
[2016-06-23 04:34] LABS: ABSOLUTE BASOPHIL COUNT 0 /CUMM (0.0-0.2); ABSOLUTE EOSINOPHIL COUNT 0.1 /CUMM (0.0-0.7); ABSOLUTE GRANULOCYTE CT 5.4 /CUMM (1.4-6.5); ABSOLUTE LYMPH COUNT 1.2 /CUMM (1.2-3.4); ABSOLUTE MONOCYTE COUNT 0.8 /CUMM (0.10-0.60); BASOPHIL % 0.4 % (0.0-2.0); EOSINOPHIL % 1.7 % (0-5); GRANULOCYTE % 70.5 % (42.2-75.2); HEMATOCRIT 32.3 % (42-52); MEAN CORPUSCULAR HGB 27.4 PG (27.0-31.0); MEAN CORPUSCULAR HGB CONC 33.1 G/DL (33.0-37.0); MEAN CORPUSCULAR VOLUME 82.8 FL (80.0-94.0); MEAN PLATELET VOLUME 8.3 FL (7.4-10.4); PLATELET COUNT 189 /CUMM (130-400); RBC DISTRIBUTION WIDTH 18.4 % (11.5-14.5); WHITE BLOOD CELL COUNT 7.6 /CUMM (4.8-10.8)
[2016-06-23 04:42] LABS: PTT 58 SEC (25-37)
--- NOTE | 2016-06-23 06:15 | NUR ---
PT CONFUSED AT TIMES BUT HE KNOWS THAT HE IS IN A HOSPITAL BILATERAL SOFT WRIST RESTRAINT ON BECAUSE PT PULLED OUT HIS HEPLOCKS AND O2. VOIDED TO 400ML OF YELLOW URINE. INCONTINENT ONCE. HEPARIN GTT CONT AT 38.9 ML/H=20.6 UNITS/KG/H
--- NOTE | 2016-06-23 07:16 | PN- Housestaff ---
YESI SORIA,DIONY 06/23/16 0716: Subjective Follow-up For: NSTEMI Ischemic cardiomyopathy, reduced EF Type 2 DM HTN Tele-Events Since Last Visit: None. Atrial sensed ventricular paced rhythm with HR range 60s to 70s. Subjective: Patient seen and examined at bedside this AM. He was resting comfortably in bed, though he continued to attempt to getting out of the bed. He denied fever, chills, chest pain, shortness of breath or other complaints. Of note, patient was placed in bedside chair to have him OOBTC. He was instructed to CALL FOR HELP for any need he may have or for any help to get up back into bed. Patient acknowledged he understood. However, he got out of the chair unaided and had fall this morning. He slightly hit his head and had a right elbow small laceration. This fall was unwitnessed at the curtain in his room was close. Head CT without IV contrast ordered. Review of Systems Constitutional: Denies: chills, fever, malaise. EENTM: Denies: blurred vision, visual changes, nasal congestion. Cardiovascular: Denies: chest pain, palpitations. Respiratory: Denies: cough, short of breath. Gastrointestinal: Denies: abdominal pain, bloating, constipation, diarrhea, vomiting. Genitourinary: Denies: dysuria. Musculoskeletal: Denies: back pain. Skin: Denies: change in skin color, change in hair/nails. Neurological/Psychological: Denies: confusion. Hematologic/Endocrine: Denies: bruising, bleeding. Immunologic/Allergic: Denies: splenectomy. Objective Last 24 Hrs of Vital Signs/I&O Vital Signs Date Time Temp Pulse Resp B/P B/P Pulse O2 O2 Flow FiO2 Mean Ox Delivery Rate 06/23 0838 65 160/74 / 0838 65 160/74 / 0838 65 160/74 / 0800 Nasal 2.0L Cannula 06/23 0800 97.7 65 22 160/74 95 Nasal 2.0L Cannula 06/23 0000 91 Nasal 1.0L Cannula 06/23 0000 97.6 72 18 122/70 91 Nasal 1.0L Cannula 06/22 2149 61 112/62 05/ 1600 95 Nasal 1.0L Cannula 06/22 1600 98.3 64 22 128/84 95 Nasal 1.0L Cannula 06/22 1557 Nasal 1.0L Cannula Intake & Output 06/23 1600 06/23 0800 06/23 0000 Intake Total 646 680.8 Output Total 400 450 Balance 246 230.8 Intake, IV 546 280.8 Intake, Oral 100 400 Output, Urine 400 450 Physical Exam General Appearance: Alert, Cooperative, No Acute Distress Skin: Right forearm laceration s/p fall covered in gauze Skin Temp/Moisture Exam: Warm/Dry HEENT: Atraumatic, PERRLA, Mucous Membr. moist/pink Neck: Supple Cardiovascular: Regular Rate, Normal S1, Normal S2, Systolic murmur RUSB Lungs: Decreased air movement bilateral bases Abdomen: Normal Bowel Sounds, No Tenderness Neurological: Normal Speech, Normal Tone Extremities: No Clubbing, No Cyanosis, 1-2+ bilateral lower extremity edema Vascular: Pulses Symmetrical Current Medications: Current Medications Sig/Theodore Start time Last Medication Dose Route Stop Time Status Admin Acetaminophen 650 MG Q6P PRN 06/21 0745 AC PO Aspirin 81 MG DAILY 06/21 1000 AC 06/23 PO 0838 Clopidogrel Bisulfate 75 MG DAILY 06/21 1159 AC 06/23 PO 0838 Docusate Sodium 100 MG DAILY NEEDED PRN 06/23 1115 AC PO Gabapentin 100 MG BID 06/21 1000 AC 06/23 PO 0838 Heparin Sodium 2,820 UNIT BOLUS ONE 06/23 0530 DC (Porcine) IV 06/23 0531 Heparin Sodium 25,000 UNIT Q24H 06/21 0700 AC 06/22 (Porcine) IV 2154 Sodium Chloride 500 ML Insulin Aspart 0 TIDAC 06/22 0800 AC 06/23 SC 0838 Insulin Detemir 40 UNITS QPM 06/22 2200 AC 06/22 SC 2150 Losartan Potassium 100 MG 0900 / 0900 AC 06/23 PO 0838 Metoprolol Succinate 200 MG DAILY 06/21 1200 AC 06/23 PO 0838 Mirtazapine 30 MG QPM 06/21 2200 AC 06/22 PO 2147 Multivitamins 1 TAB DAILY 06/21 1000 AC 06/23 PO 0838 Oxycodone HCl 5 MG Q6H PRN 06/22 0845 AC PO Oxycodone/ 2 TAB Q6P PRN 06/21 0745 AC Acetaminophen PO Pravastatin Sodium 80 MG 1700 06/21 1700 AC 06/22 PO 1608 Ranolazine 500 MG BID 06/21 1201 AC 06/23 PO 0838 Sertraline HCl 150 MG 2000 06/22 1999 AC 06/22 PO 2046 Last 24 Hrs of Lab/Chiki Results Last 24 Hrs of Labs/Mics: Laboratory Tests 06/23/16 0352: Anion Gap 8, Estimated GFR 59 L, Glucose 136 H, Calcium 8.6, Phosphorus 3.2, Magnesium 2.0, Total Bilirubin 0.8, AST 23, ALT 43, Albumin 3.3 L, APTT 58 H, CBC w Diff NO MAN DIFF REQ, RBC 3.90 L, MCV 82.8, MCH 27.4, RDW 18.4 H, MPV 8.3, Gran % 70.5, Lymphocytes % 16.3 L, Monocytes % 11.1 H, Eosinophils % 1.7, Basophils % 0.4, Absolute Granulocytes 5.4, Absolute Lymphocytes 1.2, Absolute Monocytes 0.8 H, Absolute Eosinophils 0.1, Absolute Basophils 0, PUBS MCHC 33.1 06/22/16 1545: APTT 68 H Orders EKG Findings: Atrial sensed, ventricular paced rhythm. ECHO Findings: CONCLUSIONS Technically difficult study. Left ventricular cavity size normal. Left ventricular wall thickness mildly increased. Mild global hypokinesis with additional severe hypokinesis of the inferior wall, mid to distal anteroseptum, and apex. Left ventricular ejection fraction is estimated at 30 %. Normal right ventricular size and function. Diffuse thickening of the aortic valve cusps with reduced excursion. [id number] aortic stenosis (MALLORY estimated at 1.5 cm2 by continuity). Right ventricular systolic pressure estimated to be elevated at > 55 mmHg. Radiology Findings: CXR: IMPRESSION: No acute cardiopulmonary findings. Cardiac silhouette remains prominent. Assessment/Plan Assessment: Mr. 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 In the ED: Vital signs included T 98.7, HR 71, RR 20, BP 187/90 and O2 saturation of 97% on 2 L NC. Labs were significant for normal; WBC, H/H of 11.8/ 35.6, plt 217, Na 134 (baseline 138), K 5.2, BUN/cre 35/1.2, glu 398, troponin elevated to 0.88, d-dimer elevated to 297. CXR did not show any acute cardiopulmonary findings. EKG showed atrial sensed ventricular paced rhythm, HR 68, WA 197, QTC 498. Patient is a telemetry hold in the ICU and the following is the management: 1. Recurrent NSTEMI in the setting of ischemic cardiomyopathy with EF 30% * Patient developed troponins on admission with peak of 1.62 * EKG atrial sensed/ventricular paced and therefore limited in acute ischemia * Continue optimal medical tx as his recent cath showed no obvious regions for revascularization * Continue aspirin, plavix, toprol XL 200 mg PO daily, atorvastatin 80 mg PO daily and ranexa 500 mg PO BID * HEPARIN DISCONTINUED as per Dr. Lilly MD. * Add imdur 30 mg PO daily for improved symptoms and blood pressure control as per cardiology recommendations * Patient amenable to life vest at this point in time, Dr. Lilly MD aware and will plan for patient to have device prior to discharge * Repeat echo showed mild global hypokinesis with severe hypokinesis of inferior wall, mid to distal aneroseptum and apex, LVEF 30%, mild to moderate , RVSP > 55 * Continue telemetry for now 2. Type 2 Diabetes mellitus with peripheral neuropathy * Continue low dose NSS for now as we have restarted 40 U SC levemir QPM * If accuchecks remain uncontrolled, increase to medium dose NSS * Accuchecks TIDACHS 3. HTN, HLD * Monitor BP closely * Adding imdur 30 mg daily today for further blood pressure control as patient's SBP remains suboptimal * For now, pravastatin 80 mg PO daily, toprol XL 200 mg PO daily, losartan 100 mg PO daily 4. Mood disorder, depression, insomnia * Continue zoloft 150 mg PO daily, mirtazapine 30 mg PO QPM, neurontin 100 mg PO BID * Psych consult pending for competance as cardiology suggests patient may require PPM and recent behavioral disturbances put competence into question for this invasive procedure 5. History of recurrent falls * Patient had 1 fall this AM after not asking for help when getting up from bedside chair; no previous dizziness or presyncope symptoms prior to fall. Due to the fact that patient is on IV heparin and had a head strike, will obtain head CT without IV contrast to rule out bleed * PT evaluated patient yesterday and suggested patient be discharged to a short term rehab facility 6. Chronic pain * Patient reports that he is on roxicodone 5 mg PO Q6 at home but rarely takes more than 2 tabs daily; he requests his meds be made only as needed, thus we have changed it to Q6P DNR/DNI DVTP: IV heparin Mild to severe pain pathway CC3 diet Problem List: 1. Diabetes mellitus type 2 in obese 2. HLD (hyperlipidemia) 3. HTN (hypertension) 4. Aortic stenosis 5. Carotid stenosis, bilateral 6. NSTEMI (non-ST elevated myocardial infarction) 7. Elevated troponin 8. Fall Pain Ratin Pain Location: n/a Pain Goal: Remain pain free Pain Plan: Per pain pathway Tomorrow's Labs & Rationales: CBC, ICU bundle, magnesium. DVT/Prophylaxis: pharmacological Consulting Request: Consulting Specialty: Cardiology Consulting Physician: Dr. Lilly MD Reason for Consult: Elevated troponins ZHENG SANTO MD 06/23/16 1622: Attending Review Statement Attending Statement Attending MD Statement: examined this patient, discuss w/resident/PA/BANK GUARD, agreed w/resident/PA/BANK GUARD, reviewed EMR data (avail), discussed with nursing, discussed with case mgmt, amended to note Attending Assessment/Plan: The patient was seen and discussed with house staff. Agree with the plan of care as outlined. Will need short term rehab when ready for discharge as per PT.
[2016-06-23 08:00] VITALS: BP 160/74
[2016-06-23 09:27] VITALS: BP 158/70
--- NOTE | 2016-06-23 11:41 | PN- Cardiology ---
Subjective Subjective: Patient is awake and alert. He is currently in a [place] vest. He apparently had a mechanical fall while ambulating. He denies chest pain or dyspnea. Objective Vital Signs and I&Os Vital Signs Date Time Temp Pulse Resp B/P B/P Pulse O2 O2 Flow FiO2 Mean Ox Delivery Rate 06/23 0838 65 160/74 / 0838 65 160/74 06/23 0838 65 160/74 06/23 0800 Nasal 2.0L Cannula 06/23 0800 97.7 65 22 160/74 95 Nasal 2.0L Cannula 06/23 0000 91 Nasal 1.0L Cannula 06/23 0000 97.6 72 18 122/70 91 Nasal 1.0L Cannula 06/22 2149 61 112/62 06/22 1600 95 Nasal 1.0L Cannula 06/22 1600 98.3 64 22 128/84 95 Nasal 1.0L Cannula 06/22 1557 Nasal 1.0L Cannula Intake & Output 06/23 1600 06/23 0800 06/23 0000 06/22 1600 06/22 0800 06/22 0000 Intake Total 646 680.8 829 319 500 Output Total 400 450 500 200 400 Balance 246 230.8 329 119 100 Intake, IV 546 280.8 309 319 Intake, Oral 100 400 520 500 Number 0 Bowel Movements Output, Urine 400 450 500 200 400 Physical Exam: General: no apparent distress. Alert. Eyes: No obvious scleral icterus. HEENT: No jugular venous distention or abnormal jugular venous pulsations. Cardiovascular: Normal intensity S1/S2. 1/6 systolic murmur. Left-sided pacemaker noted. Respiratory: Lungs clear to auscultation bilaterally. Abdomen: Distended without guarding, nontender Musculoskeletal: No clubbing or cyanosis noted, trace lower extremity edema Skin: Warm Neurologic: No gross focal deficits noted. Current Medications: Current Medications Sig/Theodore Start time Last Medication Dose Route Stop Time Status Admin Acetaminophen 650 MG Q6P PRN 06/21 0745 AC PO Aspirin 81 MG DAILY 06/21 1000 AC 06/23 PO 0838 Clopidogrel Bisulfate 75 MG DAILY 06/21 1159 AC 06/23 PO 0838 Docusate Sodium 100 MG DAILY NEEDED PRN 06/23 1115 AC PO Gabapentin 100 MG BID 06/21 1000 AC 06/23 PO 0838 Heparin Sodium 2,820 UNIT BOLUS ONE 06/23 0530 DC (Porcine) IV 06/23 05 Heparin Sodium 25,000 UNIT Q24H 06/21 0700 DC 06/22 (Porcine) IV 215 Sodium Chloride 500 ML Insulin Aspart 0 TIDAC 06/22 0800 AC 06/23 SC 0838 Insulin Detemir 40 UNITS QPM 06/22 2200 AC 06/22 SC 2150 Isosorbide 30 MG DAILY 06/23 1127 AC Mononitrate PO Losartan Potassium 100 MG 0906/22 0900 AC 06/23 PO 0838 Metoprolol Succinate 200 MG DAILY 06/21 1200 AC 06/23 PO 0838 Mirtazapine 30 MG QPM 06/21 2200 AC 06/22 PO 2147 Multivitamins 1 TAB DAILY 06/21 1000 AC 06/23 PO 0838 Oxycodone HCl 5 MG Q6H PRN 06/22 0845 AC PO Oxycodone/ 2 TAB Q6P PRN 06/21 0745 AC Acetaminophen PO Pravastatin Sodium 80 MG 1700 06/21 1700 AC 06/22 PO 1608 Ranolazine 500 MG BID 06/21 1201 AC 06/23 PO 0838 Sertraline HCl 150 MG 06/21 AC 06/22 PO 2047 Results Last 48 Hrs of Labs/Mics: Laboratory Tests 06/23/16 0352: Anion Gap 8, Estimated GFR 59 L, Glucose 136 H, Calcium 8.6, Phosphorus 3.2, Magnesium 2.0, Total Bilirubin 0.8, AST 23, ALT 43, Albumin 3.3 L, APTT 58 H, CBC w Diff NO MAN DIFF REQ, RBC 3.90 L, MCV 82.8, MCH 27.4, RDW 18.4 H, MPV 8.3, Gran % 70.5, Lymphocytes % 16.3 L, Monocytes % 11.1 H, Eosinophils % 1.7, Basophils % 0.4, Absolute Granulocytes 5.4, Absolute Lymphocytes 1.2, Absolute Monocytes 0.8 H, Absolute Eosinophils 0.1, Absolute Basophils 0, PUBS MCHC 33.1 06/22/16 1545: APTT 68 H 06/22/16 0910: APTT 59 H 06/22/16 0150: Anion Gap 11, Estimated GFR 59 L, Glucose 235 H, Calcium 9.2, Phosphorus 3.6, Magnesium 2.3, Total Bilirubin 0.7, AST 32, ALT 36, Albumin 3.3 L, APTT 55 H, CBC w Diff NO MAN DIFF REQ, RBC 3.90 L, MCV 81.1, MCH 27.2, RDW 17.8 H, MPV 8.1, Gran % 74.6, Lymphocytes % 14.4 L, Monocytes % 9.2, Eosinophils % 1.3, Basophils % 0.5, Absolute Granulocytes 6.4, Absolute Lymphocytes 1.2, Absolute Monocytes 0.8 H, Absolute Eosinophils 0.1, Absolute Basophils 0, PUBS MCHC 33.6 06/21/16 2300: Troponin I 1.13 *H 06/21/16 1900: Troponin I Cancelled 06/21/16 1730: Troponin I 1.62 *H, APTT 31 Recent Imaging Studies: Telemetry tracings were personally reviewed and shows sinus rhythm with V pacing Echocardiogram Technically difficult study. Left ventricular cavity size normal. Left ventricular wall thickness mildly increased. Mild global hypokinesis with additional severe hypokinesis of the inferior wall, mid to distal anteroseptum, and apex. Left ventricular ejection fraction is estimated at 30 %. Normal right ventricular size and function. Diffuse thickening of the aortic valve cusps with reduced excursion. [id number] aortic stenosis (MALLORY estimated at 1.5 cm2 by continuity). Right ventricular systolic pressure estimated to be elevated at > 55 mmHg. Siddharth Carr M.D. (Electronically Signed) Final Date: 21 Jun 2016 21:15 Assessment/Plan Assessment/Plan 1. Possible recurrent NSTEMI with recent non-ST elevation myocardial infarction 04/2016 with new ischemic cardiopathy and two-vessel CAD by cardiac catheterization at (including total RCA oclusion) without obvious targets for PCI per report 2. High-grade heart block status post permanent pacemaker 2015 3. Previous history of recurrent falls/drop atacks 4. Hx of bilateral carotid stenosis with complete occlusion of the left carotid internal artery (felt not to be a surgical candidate by vascular surgery) 5. Aortic stenosis, mild 6. Hypertension, hyperlipidemia, and diabetes mellitus 7. Hx of mild cognitive impairment Patient currently denies any active symptoms. He apparently had a mechanical fall when trying to get out of bed on his own. Defer additional evaluation of his cognitive impairment to the primary team but may benefit from psychiatric/ geriatric evaluation. He appears reasonably alert today. I had an extensive discussion with the patient about the risks versus benefits of the LifeVest and at this time he would like to proceed with the LifeVest as a bridge to possible biventricular AICD in the future. At this time we are discontinuing heparin drip. We will continue to optimize his cardiac regimen. Continue on aspirin, statin, Plavix, high-dose beta yana, ARB, and Ranexa. We are adding Imdur for antianginal management, afterload reduction, and blood pressure control. He currently appears reasonably euvolemic. Brendon Carr MD [facility] Continue telemetry? Yes
--- NOTE | 2016-06-23 12:07 | CT SCAN REPORT ---
EXAMINATION: CT HEAD WITHOUT CONTRAST CLINICAL INFORMATION: Fall with head strike. Evaluate for bleed. COMPARISON: 06/11/2016. TECHNIQUE: Contiguous axial imaging was performed from the skull base to vertex without intravenous administration of contrast. DLP: 600.71 mGy-cm FINDINGS: No acute intracranial hemorrhage, extra-axial fluid correction, focal mass effect or midline shift. No evidence of an acute major vascular territory infarction. Again noted is a focus of hypoattenuation from an old infarction involving the right lentiform nucleus. There is chronic atrophy of cerebral and cerebellar hemispheres associated with symmetric prominence of the ventricles, sulci and cisterns. There is dense atherosclerotic calcification of the carotid siphons. Again noted is paranasal sinus disease with findings including persistent heterogeneous, hyperdense secretions of the right sphenoid, ethmoid and right maxillary sinuses. The orbits, globes and temporomandibular joints are unremarkable. IMPRESSION: 1. No acute intracranial pathology compared to 06/11/2016. 2. Paranasal sinus disease with persistent hyperdense secretions within right sphenoid, ethmoid and maxillary sinuses. These could represent inspissated proteinaceous secretions or fungal elements.
--- NOTE | 2016-06-23 12:37 | NUR ---
0900: PLACED PT ON BEDSIDE COMMODE WITH BRIANNE OCHOA. THIS RN SAT WITH THE PATIENT FOR 15 MINUTES WHILE ON COMMODE. PT STATED HE NEEDED MORE TIME, HAVING A HARD TIME PASSING HIS BOWEL MOVEMENT. GAVE PATIENT THE CALL GONSALES AND INFORMED PT TO PRESS THE RED BUTTON WHEN HE WAS DONE. I CHECKED ON THE PATIENT 5 MINUTES LATER AND HE SAID HE WANTED TO CONTINUE TO SIT. THIS RN WALKED AWAY AND WITHIN THE NEXT MINUTE OR 2 A LOUD THUMP WAS HEARD AND THE PATIENT WAS ON THE GROUND IN HIS ROOM. DENIED DIZZINESS. PT'S HEAD HIT THE GLASS ICU DOOR, BRUISES NOTED TO BILATERAL KNEES AND SKIN TEAR NOTED TO RIGHT ELBOW. PT PICKED BACK UP AND PLACED BACK IN LYLY CHAIR. ANNALISE PLACED. DRESSING APPLIED TO RIGHT ELBOW. PT DENIED BLURRY VISION OR HEAD ACHE. ON HEPARIN GTT. HEAD CT DONE. VSS. HOUSE STAFF AND ATTENDING AT BEDSIDE AFTER FALL.
[2016-06-23 16:00] VITALS: BP 156/80
[2016-06-24] VITALS: BP 112/60
[2016-06-24 05:02] LABS: ABSOLUTE BASOPHIL COUNT 0 /CUMM (0.0-0.2); ABSOLUTE EOSINOPHIL COUNT 0.1 /CUMM (0.0-0.7); ABSOLUTE GRANULOCYTE CT 5.3 /CUMM (1.4-6.5); ABSOLUTE MONOCYTE COUNT 0.7 /CUMM (0.10-0.60); BASOPHIL % 0.6 % (0.0-2.0); EOSINOPHIL % 1.3 % (0-5); GRANULOCYTE % 74.8 % (42.2-75.2); MEAN CORPUSCULAR HGB 27.7 PG (27.0-31.0); MEAN CORPUSCULAR HGB CONC 33.3 G/DL (33.0-37.0); MEAN CORPUSCULAR VOLUME 83.3 FL (80.0-94.0); MEAN PLATELET VOLUME 8.4 FL (7.4-10.4); PLATELET COUNT 196 /CUMM (130-400); RBC DISTRIBUTION WIDTH 17.9 % (11.5-14.5); RED BLOOD CELL CT 3.72 /CUMM (4.70-6.10); WHITE BLOOD CELL COUNT 7.1 /CUMM (4.8-10.8)
--- NOTE | 2016-06-24 06:21 | PN- Housestaff ---
MARIAM SORIA,[facility] 06/24/16 0620: Subjective Follow-up For: NSTEMI Ischemic cardiomyopathy, reduced EF Type 2 DM HTN Subjective: Mr. Lord was seen and examined this morning. He is resting comfortably in bed. At the initial time of our encounter he appeared very somnolent although was oriented 3. He denies any issues overnight. He denies any headache or visual disturbances. He is currently pain-free and states that he would like to rest. He denies any fever, chills, nausea, vomiting. Review of Systems Constitutional: Reports: see HPI. Objective Last 24 Hrs of Vital Signs/I&O Vital Signs Date Time Temp Pulse Resp B/P B/P Pulse O2 O2 Flow FiO2 Mean Ox Delivery Rate 06/24 1440 97.8 60 22 130/64 06/24 1023 60 130/64 06/24 1023 60 130/64 06/24 0811 97.8 62 22 110/60 96 Nasal 2.0L Cannula 06/24 0800 Nasal 2.0L Cannula 06/24 0000 91 Nasal 2.0L Cannula 06/24 0000 98.0 72 22 112/60 91 Nasal 2.0L Cannula 06/23 2137 75 152/80 /03 1955 Room Air Intake & Output 06/24 1600 /04 0800 06/24 0000 Intake Total 1200 100 600 Output Total 450 750 Balance 750 100 -150 Intake, Oral 1200 100 600 Number 0 1 Bowel Movements Output, Urine 450 750 Physical Exam General Appearance: Alert, Oriented X3, Cooperative HEENT: Mucous Membr. moist/pink Neck: Supple Cardiovascular: Regular Rate, Normal S1, Normal S2, No Murmurs Lungs: Clear to Auscultation Abdomen: Normal Bowel Sounds, Soft, No Tenderness Neurological: Normal Gait, Normal Speech, Strength at 5/5 X4 Ext Extremities: No Clubbing, No Edema, Normal Pulses Vascular: Normal Pulses Current Medications: Current Medications Sig/Theodore Start time Last Medication Dose Route Stop Time Status Admin Acetaminophen 650 MG Q6P PRN 06/21 0745 AC PO Aspirin 81 MG DAILY 06/21 1000 AC 06/24 PO 1023 Clopidogrel Bisulfate 75 MG DAILY 06/21 1159 AC 06/24 PO 1023 Docusate Sodium 100 MG DAILY NEEDED PRN 06/23 1115 AC PO Gabapentin 100 MG BID 06/21 1000 AC 06/24 PO 1023 Insulin Aspart 0 TIDAC 06/22 0800 AC 06/24 SC 1152 Insulin Detemir 40 UNITS QPM 06/22 2200 AC 06/23 SC 2136 Isosorbide 30 MG DAILY 06/23 1127 DC 06/23 Mononitrate PO 1516 Losartan Potassium 100 MG 0900 06/22 0900 DC 06/23 PO 0838 Metoprolol Succinate 200 MG DAILY 06/21 1200 AC 06/24 PO 1023 Mirtazapine 30 MG QPM 06/21 2200 AC 06/23 PO 2137 Multivitamins 1 TAB DAILY 06/21 1000 AC 06/24 PO 1023 Oxycodone HCl 5 MG Q6H PRN 06/22 0845 AC PO Oxycodone/ 2 TAB Q6P PRN 06/21 0745 AC Acetaminophen PO Pravastatin Sodium 80 MG 1700 06/21 1700 AC 06/23 PO 1651 Ranolazine 500 MG BID 06/21 1201 AC 06/24 PO 1023 Sertraline HCl 150 MG 06/21 AC 06/23 PO 2004 Last 24 Hrs of Lab/Chiki Results Last 24 Hrs of Labs/Mics: Laboratory Tests 06/24/16 0354: Anion Gap 10, Estimated GFR 54 L, Glucose 208 H, Calcium 8.5, Phosphorus 3.2, Magnesium 2.1, Total Bilirubin 0.9, AST 55, ALT 86 H, Albumin 3.4 L, CBC w Diff NO MAN DIFF REQ, RBC 3.72 L, MCV 83.3, MCH 27.7, RDW 17.9 H, MPV 8.4, Gran % 74.8, Lymphocytes % 13.6 L, Monocytes % 9.7 H, Eosinophils % 1.3, Basophils % 0.6, Absolute Granulocytes 5.3, Absolute Lymphocytes 1.0 L, Absolute Monocytes 0.7 H, Absolute Eosinophils 0.1, Absolute Basophils 0, PUBS MCHC 33.3 Assessment/Plan Assessment: Mr. 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 In the ED: Vital signs included T 98.7, HR 71, RR 20, BP 187/90 and O2 saturation of 97% on 2 L NC. Labs were significant for normal; WBC, H/H of 11.8/ 35.6, plt 217, Na 134 (baseline 138), K 5.2, BUN/cre 35/1.2, glu 398, troponin elevated to 0.88, d-dimer elevated to 297. CXR did not show any acute cardiopulmonary findings. EKG showed atrial sensed ventricular paced rhythm, HR 68, NM 197, QTC 498. Patient is a telemetry hold in the ICU and the following is the management: 1. Recurrent NSTEMI in the setting of ischemic cardiomyopathy with EF 30% * Patient developed troponins on admission with peak of 1.62 * EKG atrial sensed/ventricular paced and therefore limited in acute ischemia * Continue optimal medical tx as his recent cath showed no obvious regions for revascularization * Continue aspirin, plavix, toprol XL 200 mg PO daily, atorvastatin 80 mg PO daily and ranexa 500 mg PO BID * HEPARIN DISCONTINUED as per Dr. Lilly MD. * Patient amenable to life vest at this point in time, Dr. Lilly MD aware and will plan for patient to have device prior to discharge, LifeVest arrangement in progress. * Repeat echo showed mild global hypokinesis with severe hypokinesis of inferior wall, mid to distal aneroseptum and apex, LVEF 30%, mild to moderate , RVSP > 55 * Continue Telemetry for now, potential discharge to STR: 06/25/2016. 2. Type 2 Diabetes mellitus with peripheral neuropathy * Continue low dose NSS for now as we have restarted 40 U SC levemir QPM * If accuchecks remain uncontrolled, increase to medium dose NSS : FS,281, 166,325 * Accuchecks TIDACHS 3. HTN, HLD * Monitor BP closely * Owing to the patient's reduced ejection fraction, the senior information security architect recommended that we should begin the patient on Entresto (Sacubitril/Valsartan 49/51). Dosing 49/51 MG twice a day. Monitor the patient overnight for any signs of hypotension. In the interim we discontinued his Losartan and Imdur. * For now, pravastatin 80 mg PO daily, toprol XL 200 mg PO daily 4. Mood disorder, depression, insomnia * Continue zoloft 150 mg PO daily, mirtazapine 30 mg PO QPM, neurontin 100 mg PO BID * Psych consult pending for competance as cardiology suggests patient may require PPM and recent behavioral disturbances put competence into question for this invasive procedure 5. History of recurrent falls * Patient had 1 fall 06/24/2016 after not asking for help when getting up from bedside chair; no previous dizziness or presyncope symptoms prior to fall. Due to the fact that patient was on IV heparin and had a head strike, will obtain head CT without IV contrast to rule out bleed, No acute intracranial pathology compared to 06/11/2016. * PT evaluated patient yesterday and suggested patient be discharged to a short term rehab facility 6. Chronic pain * Patient reports that he is on roxicodone 5 mg PO Q6 at home but rarely takes more than 2 tabs daily; he requests his meds be made only as needed, thus we have changed it to Q6P DNR/DNI DVTP: Mechanical Mild to severe pain pathway CC3 diet Problem List: 1. Diabetes mellitus type 2 in obese 2. HLD (hyperlipidemia) 3. HTN (hypertension) 4. Aortic stenosis 5. Carotid stenosis, bilateral 6. NSTEMI (non-ST elevated myocardial infarction) 7. Fall 8. Elevated troponin Pain Ratin Pain Location: No Pain Pain Goal: Remain pain free Pain Plan: Percocet Tomorrow's Labs & Rationales: ICU bundle Consulting Request: Consulting Specialty: Cardiology Consulting Physician: Dr. Lilly MD Reason for Consult: Elevated troponins ZHENG SANTO MD 06/24/162051: Attending MD Review Statement Attending Statement Attending MD Statement: examined this patient, discuss w/resident/PA/CAN TECHNICIAN, agreed w/resident/PA/CAN TECHNICIAN, reviewed EMR data (avail), amended to note Attending Assessment/Plan: The patient was seen and discussed with house staff, case management and Cardiology. Will observe BP closely on RADHA and Dr. Seth investigating Life Vest. Plan is for [facility] when able to discharge. Continue PT.
--- NOTE | 2016-06-24 07:57 | Discharge Summary ---
Visit Information Visit Dates Admission Date: 06/21/16 Discharge Date: 06/25/16 Hospital Course Course Attending Physician: ZHENG SANTO MD Primary Care Physician: GEOFFREY SORIA,SUSIE Sarmiento Consulting Request: Consulting Specialty: Cardiology Consulting Physician: Dr. Lilly MD Reason for Consult: Elevated troponins Hospital Course: Patient is a a pleasant 75 year old male with PMH previous cigarette abuse (quit 20 years ago), previous alcohol abuse (quit 15-20 years ago), HTN, HLD, major depressive disorder, type 2 diabetes mellitus, diabetic peripheral neuropathy, amnesia, adjustment disorder, history of recurrent falls, carotid stenosis with complete left internal carotid artery occlusion, aortic stenosis, symptomatic bradycardia with second degree heart block s/p MRI-compatible dual- chamber PPM (November 2015), ischemic cardiomyopathy and two-vessel CAD by cardiac cath including total RCA occlusion without obvious targets for PCI who presents from [facility] with chief complaint of chest pain. In the ED: Vital signs included T 98.7, HR 71, RR 20, BP 187/90 and O2 saturation of 97% on 2 L NC. Labs were significant for normal; WBC, H/H of 11.8/ 35.6, plt 217, Na 134 (baseline 138), K 5.2, BUN/cre 35/1.2, glu 398, troponin elevated to 0.88, d-dimer elevated to 297. CXR did not show any acute cardiopulmonary findings. EKG showed atrial sensed ventricular paced rhythm, HR 68, KS 197, QTC 498. Patient was admitted as a telemetry hold in the ICU for the followin. Recurrent NSTEMI in the setting of ischemic cardiomyopathy with EF 30%: History of recent non-ST elevation myocardial infarction 04/2016 Patient was admitted to the ICU for further management.Heparin was started for possible NSTEMI. Aspirin, Plavix, beta yana , statin and ranexa 500 mg PO BID per cardiology started. Patient developed troponins on admission with peak of 1.62,EKG atrial sensed/ventricular paced and therefore limited in acute ischemia. Patient was evaluated by cardiology recommended to continue optimal medical tx as his recent cath showed no obvious regions for revascularization. Later IV heparin was stopped, Patient was started on Sacubitril-Valsartan (ENTRESTO) starting as lowest dosing for 2 weeks and then increasing titration upwards. Pt was discharged with LifeVest as a bridge to possible biventricular AICD in the future. 2. History of Type 2 Diabetes mellitus with peripheral neuropathy: Blood sugar levels were controlled with the NovoLog sliding scale, home dose of Levemir was continued. 3. History of hypertension and hyperlipidemia: toprol XL 200 mg PO daily, losartan 100 mg PO daily,pravastatin 80 mg PO daily were continued in the hospital. 4. History of Mood disorder, depression, insomnia: Zoloft 150 mg PO daily, mirtazapine 30 mg PO QPM, neurontin 100 mg PO BID 5. History of recurrent falls: Patient was evaluated by physical therapy in the hospital recommended STR on discharge. DNR/DNI DVTP:heparin Mild to severe pain pathway CC3 diet Allergies: Coded Allergies: No Known Allergies (06/07/16) Significant Procedures: ELOY LI Age: 75 : 1940 Gender: M Exam Date: 06/21/2016 10:57 Exam Location: [facility] Ht (in): 70 Wt (lb): 208 BSA: 2.18 BP: 180 / 72 Ordering Physician: PIA COLLINS MD Referring Physician: PIA COLLINS MD Technologist: Miguel A Guzmán ANANDA Room Number: [id number] Indications: Chest Pain Rhythm: Technical Quality: Technically difficult study FINDINGS Left Ventricle Left ventricular cavity size normal. Left ventricular wall thickness mildly increased. Mild global hypokinesis with additional severe hypokinesis of the inferior wall, mid to distal anteroseptum, and apex. Left ventricular ejection fraction is estimated at 30 %. Right Ventricle Normal right ventricular size and function. Right Atrium Normal right atrial size. Left Atrium Normal left atrial size. Mitral Valve No mitral stenosis. Mild mitral annular calcification. Mild mitral regurgitation. Aortic Valve Diffuse thickening of the aortic valve cusps with reduced excursion. Jzim-lw-ubzctkyy aortic stenosis (MALLORY estimated at 1.5 cm2 by continuity). Tricuspid Valve Structurally normal tricuspid valve. Mild tricuspid regurgitation. Right ventricular systolic pressure estimated to be elevated at > 55 mmHg. Pulmonic Valve Pulmonic valve not well visualized, grossly normal. Pericardium No pericardial effusion. Great Vessels Normal size aortic root and proximal ascending aorta. CONCLUSIONS Technically difficult study. Left ventricular cavity size normal. Left ventricular wall thickness mildly increased. Mild global hypokinesis with additional severe hypokinesis of the inferior wall, mid to distal anteroseptum, and apex. Left ventricular ejection fraction is estimated at 30 %. Normal right ventricular size and function. Diffuse thickening of the aortic valve cusps with reduced excursion. Kwpm-aj-vketvvst aortic stenosis (MALLORY estimated at 1.5 cm2 by continuity). Right ventricular systolic pressure estimated to be elevated at > 55 mmHg. Siddharth Carr M.D. (Electronically Signed) Final Date: 21 Jun 2016 21:15 MEASUREMENTS (Male / Female) Normal Values 2D ECHO LV Diastolic Diameter PLAX 5.4 cm 4.2 - 5.9 / 3.9 - 5.3 cm LV Systolic Diameter PLAX 3.7 cm 2.1 - 4.0 cm LV Fractional Shortening PLAX 31.5 % 25 - 46 % LV Ejection Fraction 2D Teich 58.9 % IVS Diastolic Thickness 1.3 cm LVPW Diastolic Thickness 1.5 cm LV Relative Wall Thickness 0.5 RV Internal Dim ED PLAX 3.4 cm 1.9 - 3.8 cm LVOT Diameter 1.9 cm Aortic Root Diameter 3.0 cm LA Systolic Diameter LX 4.1 cm 3.0 - 4.0 / 2.7 - 3.8 cm LA Volume 43.0 cm 18 - 58 / 22 - 52 cm Ascending Aorta Diameter 2.7 cm DOPPLER AV Peak Velocity 198.0 cm/s AV Peak Gradient 15.7 mmHg AV Mean Velocity 139.0 cm/s AV Mean Gradient 9.0 mmHg AV Velocity Time Integral 48.0 cm LVOT Peak Velocity 101.0 cm/s LVOT Peak Gradient 4.1 mmHg LVOT Mean Velocity 57.0 cm/s LVOT Mean Gradient 2.0 mmHg LVOT Velocity Time Integral 25.7 cm LVOT Stroke Volume 72.9 cm AV Area Cont Eq vti 1.5 cm AV Area Cont Eq pk 1.4 cm MV Peak Velocity 111.0 cm/s MV Peak Gradient 4.9 mmHg MV Mean Velocity 68.3 cm/s MV Mean Gradient 2.0 mmHg Mitral E Point Velocity 120.0 cm/s Mitral A Point Velocity 85.9 cm/s Mitral E to A Ratio 1.4 MV PHT Velocity 113.0 cm/s MV Deceleration [place] 245.0 cm/s MV Pressure Half Time 138.4 ms MV Area PHT 1.6 cm MV Deceleration Time 299.0 ms MR Peak Velocity 511.0 cm/s MR Peak Gradient 104.4 mmHg TR Peak Velocity 341.0 cm/s TR Peak Gradient 46.5 mmHg Right Atrial Pressure 5.0 mmHg Pulmonary Artery Systolic Pressu 51.5 mmHg Right Ventricular Systolic Press 51.5 mmHg PV Peak Velocity 102.0 cm/s PV Peak Gradient 4.2 mmHg PV Mean Velocity 65.3 cm/s PV Mean Gradient 2.0 mmHg PV Velocity Time Integral 26.0 cm DICTATED BY: SIDDHARTH CARR MD DATE/TIME DICTATED:06/21/162114 HAND SLITTER:ERIKA DATE/TIME TRANSCRIBED:06/21/162114 CONFIDENTIAL, DO NOT COPY WITHOUT APPROPRIATE AUTHORIZATION. <Electronically signed in Other Vendor System> SIGNED BY: SIDDHARTH CARR MD 06/21/162115 Disposition Summary Disposition Principal Diagnosis: Recurrent NSTEMI in the setting of ischemic cardiomyopathy with EF 30%: History of recent non-ST elevation myocardial infarction 04/2016 Additional Diagnosis: History of Type 2 Diabetes mellitus with peripheral neuropathy Discharge Disposition: SNF Discharge Instructions General Discharge Information Code Status: Do Not Resucitate/Intubat Patient's Diet: CC3 Patient's Activity: TOLERATED Follow-Up Instructions/Appts: 1. Please follow with your operations dispatcher for discharge. 2. Return to the ER if the symptoms get worse after discharge. 3. Follow-up with your primary care physician . Medications at Discharge Discharge Medications: Stop taking the following medications: Losartan Potassium (Losartan Potassium) 100 MG TABLET ORAL 0900 Qty = 30 Metoprolol Succinate (Metoprolol Succinate) 100 MG TAB.ER.24H ORAL DAILY Qty = 28 Continue taking these medications: Metformin HCl (Metformin HCl ER) 500 MG [id number] 3 Tablet ORAL 1630 Qty = 90 Comments: NOT GIVEN Pravastatin Sodium (Pravachol) 80 MG TABLET 1 Tablet ORAL 1630 Qty = 30 Comments: Last Taken: 06-23-16 Time: 5 PM Trazodone HCl (Trazodone HCl) 150 MG TABLET 1 Tablet ORAL TAKE AT BEDTIME as needed for SLEEP Comments: NOT GIVEN Sertraline HCl (Zoloft) 100 MG TABLET 1.5 Tablet ORAL 1999 Comments: Last Taken: 06/24/16 Time: 8 PM Cholecalciferol (Vitamin D3) (Vitamin D3) 1,000 UNIT CAPSULE 1 Capsule ORAL 0900 Comments: NOT TAKEN WHILE IN HOSPITAL Tramadol HCl (Tramadol HCl) 50 MG TABLET 1 Tablet ORAL EVERY 8 HOURS NEEDED as needed for PAIN Qty = 30 Comments: NOT GIVEN Ramelteon (Rozerem) 8 MG TABLET 1 Tablet ORAL 1999 Qty = 28 Comments: Last Taken: 06-23-16 Time: 9 PM Hydrochlorothiazide (Hydrochlorothiazide) 25 MG TABLET 1 Tablet ORAL DAILY Comments: NOT TAKEN WHILE IN HOSPITAL Insulin Lispro (Humalog Kwikpen U-100) 100 UNIT/ML INSULN.PEN 18 Units Inject into fatty tissue WITH MEALS Comments: PT WAS ON A NOVOLOG SLIDING SCALE IN THE HOSPITAL. JUST BEFORE MEALS. LAST RECEIVED NOVOLOG 6UNITS SQ AT 1630 ON 06/25/16 Insulin Glargine,Hum.rec.anlog (Lantus Solostar) 100 UNIT/ML (3 ML) INSULN.PEN 40 Units Inject into fatty tissue Every night Qty = 15 Comments: Last Taken: 06-24-16 Time: 1200 PM Albuterol Sulfate (Albuterol Sulfate) 2.5 MG/3 ML (0.083 %) VIAL.NEB 1 Vial Inhale Solution EVERY 4 HOURS NEEDED as needed for SOB Qty = 75 Comments: NOT TAKEN WHILE IN HOSPITAL Mirtazapine (Remeron) 30 MG TABLET 1 Tablet ORAL Every night Comments: Last Taken: 06/25/16 Time: 9:30PM Aspirin (Aspirin*) 81 MG TAB.CHEW 1 Tablet ORAL DAILY Comments: Last Taken: 06/25/16 Time: 10 AM Gabapentin (Gabapentin) 100 MG CAPSULE 1 Capsule ORAL TWICE DAILY Comments: Last Taken: 06/25/16 Time: 10 AM Start taking the following new medications: Metoprolol Succ XL (Toprol XL) 100 MG TAB.ER.24H 2 Tablet ORAL DAILY Days = 30 No Refills Comments: Last Taken: 06-24-16 Time: 10 AM Ranolazine (Ranexa) 500 MG TAB.ER.12H 1 Tablet ORAL TWICE DAILY Qty = 30 No Refills Comments: Last Taken: 06-24-16 Time: 10 AM [ENTRESTO 49MG/51MG] 1 Tablet ORAL TWICE DAILY Days = 30 No Refills Comments: Last Taken: 06-24-16 Time: 11 AM Copies To: GEOFFREY SORIA,SUSIE D. Attending MD Review Statement Documenting Attending: ZHENG SANTO MD Other Findings: Agree with plan of care.
--- NOTE | 2016-06-24 08:10 | PN- Cardiology ---
Subjective Subjective: Patient appears to be resting quietly. No events overnight. Since since patient wants to rest unable to make extended conversations would get the impression there's been no chest pain or discomfort Objective Vital Signs and I&Os Vital Signs Date Time Temp Pulse Resp B/P B/P Pulse O2 O2 Flow FiO2 Mean Ox Delivery Rate 06/24 0000 91 Nasal 2.0L Cannula / 0000 98.0 72 22 112/60 91 Nasal 2.0L Cannula 06/23 2137 75 152/80 06/23 1955 Room Air 06/23 1600 Room Air 06/23 1600 99.0 68 20 156/80 92 Room Air 06/23 1516 69 156/80 / 0838 65 160/74 / 0838 65 160/74 / 0838 65 160/74 / 0800 Nasal 2.0L Cannula 06/23 0800 97.7 65 22 160/74 95 Nasal 2.0L Cannula Intake & Output 06/24 0800 /04 0000 /03 1600 06/23 0800 / 0000 / 1600 Intake Total 100 600 940 646 680.8 829 Output Total 750 350 400 450 500 Balance 100 -150 590 246 230.8 329 Intake, IV 220 546 280.8 309 Intake, Oral 100 600 720 100 400 520 Number 1 1 0 Bowel Movements Output, Urine 750 350 400 450 500 Physical Exam: On general exam patient comfortable Head normocephalic atraumatic Eyes sclera anicteric conjunctiva showed no pallor extraocular muscles were normal Neck no jugular venous distention no thyroid masses no palpable nodes Chest lungs were clear bilaterally Heart regular rhythm with a grade 1 to 2/6 systolic murmur. Second sound appears paradoxically split Abdomen soft protuberant nontender no organomegaly Extremities no clubbing cyanosis or edema Neurological no gross motor or sensory deficits Current Medications: Current Medications Sig/Theodore Start time Last Medication Dose Route Stop Time Status Admin Acetaminophen 650 MG Q6P PRN 06/21 0745 AC PO Aspirin 81 MG DAILY 06/21 1000 AC 06/23 PO 0838 Clopidogrel Bisulfate 75 MG DAILY 06/21 1159 AC 06/23 PO 0838 Docusate Sodium 100 MG DAILY NEEDED PRN 06/23 1115 AC PO Gabapentin 100 MG BID 06/21 1000 AC 06/23 PO 2137 Heparin Sodium 25,000 UNIT Q24H 06/21 0700 DC 06/22 (Porcine) IV 2154 Sodium Chloride 500 ML Insulin Aspart 0 TIDAC 06/22 0800 AC 06/24 SC 0756 Insulin Detemir 40 UNITS QPM 06/22 2200 AC 06/23 SC 2136 Isosorbide 30 MG DAILY 06/23 1127 AC 06/23 Mononitrate PO 1516 Losartan Potassium 100 MG 0906/22 0900 AC 06/23 PO 0838 Metoprolol Succinate 200 MG DAILY 06/21 1200 AC 06/23 PO 0838 Mirtazapine 30 MG QPM 06/21 2200 AC 06/23 PO 2137 Multivitamins 1 TAB DAILY 06/21 1000 AC 06/23 PO 0838 Oxycodone HCl 5 MG Q6H PRN 06/22 0845 AC PO Oxycodone/ 2 TAB Q6P PRN 06/21 0745 AC Acetaminophen PO Pravastatin Sodium 80 MG 1700 06/21 1700 AC 06/23 PO 1651 Ranolazine 500 MG BID 06/21 1201 AC 06/23 PO 213 Sertraline HCl 150 MG 06/21 AC 06/23 PO 2005 Results Last 48 Hrs of Labs/Mics: Laboratory Tests 06/24/16 0354: Anion Gap 10, Estimated GFR 54 L, Glucose 208 H, Calcium 8.5, Phosphorus 3.2, Magnesium 2.1, Total Bilirubin 0.9, AST 55, ALT 86 H, Albumin 3.4 L, CBC w Diff NO MAN DIFF REQ, RBC 3.72 L, MCV 83.3, MCH 27.7, RDW 17.9 H, MPV 8.4, Gran % 74.8, Lymphocytes % 13.6 L, Monocytes % 9.7 H, Eosinophils % 1.3, Basophils % 0.6, Absolute Granulocytes 5.3, Absolute Lymphocytes 1.0 L, Absolute Monocytes 0.7 H, Absolute Eosinophils 0.1, Absolute Basophils 0, PUBS MCHC 33.3 06/23/16 1130: APTT Cancelled 06/23/16 0352: Anion Gap 8, Estimated GFR 59 L, Glucose 136 H, Calcium 8.6, Phosphorus 3.2, Magnesium 2.0, Total Bilirubin 0.8, AST 23, ALT 43, Albumin 3.3 L, APTT 58 H, CBC w Diff NO MAN DIFF REQ, RBC 3.90 L, MCV 82.8, MCH 27.4, RDW 18.4 H, MPV 8.3, Gran % 70.5, Lymphocytes % 16.3 L, Monocytes % 11.1 H, Eosinophils % 1.7, Basophils % 0.4, Absolute Granulocytes 5.4, Absolute Lymphocytes 1.2, Absolute Monocytes 0.8 H, Absolute Eosinophils 0.1, Absolute Basophils 0, PUBS MCHC 33.1 06/22/16 1545: APTT 68 H 06/22/16 0910: APTT 59 H Assessment/Plan Assessment/Plan In summary this 75-year-old gentleman has the following problems 1. Possible recurrent NSTEMI with recent non-ST elevation myocardial infarction 04/2016 with new ischemic cardiopathy and two-vessel CAD by cardiac catheterization at (including total RCA oclusion) without obvious targets for PCI per report 2. High-grade heart block status post permanent pacemaker 2015 3. Previous history of recurrent falls/drop atacks 4. Hx of bilateral carotid stenosis with complete occlusion of the left carotid internal artery (felt not to be a surgical candidate by vascular surgery) 5. Aortic stenosis, mild 6. Hypertension, hyperlipidemia, and diabetes mellitus 7. Hx of mild cognitive impairment Medical therapy appears to be maximized. LifeVest arrangement is in progress. If Sacubitril-Valsartan (ENTRESTO) is available, he would be a candidate to substitute losartan for Entresto, starting as lowest dosing for 2 weeks and then increasing titration upwards. Patient to be stable to be transferred to telemetry floor. Continue telemetry? Yes
[2016-06-24 08:11] VITALS: BP 110/60
--- NOTE | 2016-06-24 08:26 | NUR ---
0800: RECEIVED PT IN BED. DROWSY/AROUSABLE. ON 2L NC. LUNGS DIMINISHED. SINUS SUSANA WITH OCCASSIONAL PACER SPIKES NOTED. ABDOMEN D/S, +BS. PT EITHER VOIDS IN URINAL OR IS INCONTINENT. RIGHT ELBOW SKIN TEAR, PT PULLED OFF DRESSING. NO BLEEDING NOTED. DRESSING TO RIGHT FOOT SECOND TOE, XEROFORM. BED ALARM REMAINS IN PLACE PT HAD FALL YESTERDAY. #[address]
--- NOTE | 2016-06-24 09:25 | NUR ---
PATIENT MORE AWAKE, SITTING UP IN BED, EATING BREAKFAST, CONFUSED. CALLING THIS RN HIS GRAND DAUGHTER. REORIENTED PATIENT.
--- NOTE | 2016-06-24 11:31 | Patient Discharge Instructions ---
Discharge Instructions General Discharge Information Watch for these problems: Worsening chest discomfort, chest pain. Difficulty breathing Confusion or lightheadedness Fever or chills, nausea or vomiting. Abdominal Pain. Special Instructions: -Follow-up with your primary care physician within one week after discharge. Please inform your primary care physician of this admission to the ICU. -Please follow-up with the bag filler Dr. Carr within one week of discharge. We have provided you with a referral. Acute Coronary Syndrome Inclusion Criteria At DC or during hospital stay patient has or had the following: ACS DIAGNOSIS Yes Discharge Core Measures Meds if any: Prescribed or Continued at Discharge VIDA/ARB if EF <40% Yes Aspirin Yes Beta-Josue Yes Statin Yes Meds if any: NOT Prescribed or Continued at Discharge Congestive Heart Failure Inclusion Criteria At DC or during hospital stay patient has or had the following: CHF DIAGNOSIS No Discharge Core Measures Meds if any: Prescribed or Continued at Discharge Meds if any: NOT Prescribed or Continued at Discharge Cerebrovascular accident Inclusion Criteria At DC or during hospital stay patient has or had the following: CVA/TIA Diagnosis No Discharge Core Measures Meds if any: Prescribed or Continued at Discharge Meds if any: NOT Prescribed or Continued at Discharge Venous thromboembolism Inclusion Criteria VTE Diagnosis No VTE Type NONE VTE Confirmed by (Test) NONE Discharge Core Measures - Per Current guidelines, there needs to be overlap - treatment for the first 5 days of Warfarin therapy. - If discharged on Warfarin prior to 5 days of - overlap therapy, the patient will need to be - assessed for post discharge needs including - *Post discharge parental anticoagulation - *Warfarin and/or parental anticoagulation education - *Follow up date to check INR post discharge At least 5 days overlap therapy as Inpatient No Meds if any: Prescribed or Continued at Discharge Note: Overlap Therapy is Warfarin and Anticoagulant Meds if any: NOT Prescribed or Continued at Discharge
[2016-06-24] MEDS ORDERED: RANEXA500 M1 PO (12:53)
[2016-06-24] MEDS ORDERED: TOPROL XL100 M1 PO ×2 (12:55→13:00)
[2016-06-24] MEDS ORDERED: ENTRESTO 49MG/51MG PO (13:01)
[2016-06-24 14:40] VITALS: BP 130/64
[2016-06-24 16:00] VITALS: BP 138/66
[2016-06-24 22:00] VITALS: BP 140/80
--- NOTE | 2016-06-24 23:06 | NUR ---
pt alert and oriented, 2l nc. Paced on the monitor- hr in the 60's. vss. denies pain. Anticipated d/c tommorrow to [facility] pening delivery of lifevest.
--- NOTE | 2016-06-25 04:07 | NUR ---
PT WAKES UP EASILY. DENEIS PAIN AT THIS TIME. ORIENTED TO PLACE. NSR/PACED AT TIMES. SATURATION 96% ON 2L O2. INCONTINENT OF URINE, KEPT CLEAN AND DRY.
--- NOTE | 2016-06-25 06:20 | PN- Housestaff ---
See Addendum Subjective Follow-up For: NSTEMI Ischemic cardiomyopathy, reduced EF Type 2 DM HTN Tele-Events Since Last Visit: No Events Subjective: Mr. Lord was seen and examined this morning. He is resting comfortably in bed. He reports no acute issues overnight. He does mention that he jacqueline his calls for help overnight were unanswered. He denies any fever, chills, vomiting. Denies any lightheadedness. He is alert and oriented 3 and eager to be discharged upon receiving his LifeVest. Review of Systems Constitutional: Reports: see HPI. Objective Last 24 Hrs of Vital Signs/I&O Vital Signs Date Time Temp Pulse Resp B/P B/P Pulse O2 O2 Flow FiO2 Mean Ox Delivery Rate 06/25 08 93 Room Air Room Air 06/25 08 98.6 64 20 144/82 92 Room Air Room Air 06/25 0000 98 Nasal 2.0L Cannula 06/24 2200 98.6 64 20 140/80 96 Nasal 2.0L Cannula 06/24 2135 64 140/80 06/24 1600 Nasal 2.0L Cannula 06/24 1600 97.2 60 26 138/66 96 Nasal 2.0L Cannula 06/24 1440 97.8 60 22 130/64 / 1023 60 130/64 05 1023 60 130/64 Intake & Output 06/25 1600 06/25 0800 06/25 0000 Intake Total 100 120 Output Total 250 Balance 100 -130 Intake, Oral 100 120 Output, Urine 250 Patient 94.546 kg Weight Physical Exam General Appearance: Alert, Oriented X3, Cooperative Lymphatic: Axillary nl Cardiovascular: Regular Rate, Normal S1, Normal S2 Lungs: Clear to Auscultation Abdomen: Normal Bowel Sounds, Soft, No Tenderness Neurological: Normal Gait, Normal Speech Extremities: No Clubbing, No Cyanosis, No Edema Vascular: Normal Pulses Current Medications: Current Medications Sig/Theodore Start time Last Medication Dose Route Stop Time Status Admin Acetaminophen 650 MG Q6P PRN 06/21 0745 AC PO Aspirin 81 MG DAILY 06/21 1000 AC 06/24 PO 1023 Clopidogrel Bisulfate 75 MG DAILY 06/21 1159 AC 06/24 PO 1023 Docusate Sodium 100 MG .STK-MED ONE 06/24 2146 DC PO 06/24 214 Docusate Sodium 100 MG DAILY NEEDED PRN 06/23 1115 AC 06/24 PO 2138 Gabapentin 100 MG BID 06/21 1000 AC 06/24 PO 2133 Insulin Aspart 0 TIDAC 06/22 0800 AC 06/25 SC 0804 Insulin Detemir 40 UNITS QPM 06/22 2200 AC 06/24 SC 2136 Metoprolol Succinate 200 MG DAILY 06/21 1200 AC 06/24 PO 1023 Mirtazapine 30 MG QPM 06/21 2200 AC 06/24 PO 2133 Multivitamins 1 TAB DAILY 06/21 1000 AC 06/24 PO 1023 Oxycodone HCl 5 MG Q6H PRN 06/22 0845 AC PO Oxycodone/ 2 TAB Q6P PRN 06/21 0745 AC Acetaminophen PO Pravastatin Sodium 80 MG 1700 06/21 1700 AC 06/24 PO 1639 Ranolazine 500 MG BID 06/21 1201 AC 06/24 PO 2135 Sertraline HCl 150 MG 06/21 AC 06/24 PO 2134 Last 24 Hrs of Lab/Chiki Results Last 24 Hrs of Labs/Mics: Laboratory Tests 06/25/16 0351: Anion Gap 9, Estimated GFR 59 L, Glucose 226 H, Calcium 8.0 L, Phosphorus 2.6 , Magnesium 2.1, Total Bilirubin 1.0, AST 30, ALT 65, Albumin 3.2 L Assessment/Plan Assessment: Mr. 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 In the ED: Vital signs included T 98.7, HR 71, RR 20, BP 187/90 and O2 saturation of 97% on 2 L NC. Labs were significant for normal; WBC, H/H of 11.8/ 35.6, plt 217, Na 134 (baseline 138), K 5.2, BUN/cre 35/1.2, glu 398, troponin elevated to 0.88, d-dimer elevated to 297. CXR did not show any acute cardiopulmonary findings. EKG showed atrial sensed ventricular paced rhythm, HR 68, AR 197, QTC 498. Patient is a telemetry hold in the ICU and the following is the management: 1. Recurrent NSTEMI in the setting of ischemic cardiomyopathy with EF 30% * Patient developed troponins on admission with peak of 1.62 * EKG atrial sensed/ventricular paced and therefore limited in acute ischemia * Continue optimal medical tx as his recent cath showed no obvious regions for revascularization * Continue aspirin, plavix, toprol XL 200 mg PO daily, atorvastatin 80 mg PO daily and ranexa 500 mg PO BID * HEPARIN DISCONTINUED as per Dr. Lilly MD. * Patient amenable to life vest at this point in time, Dr. Lilly MD aware and will plan for patient to have device prior to discharge, LifeVest arrangement in progress. * Repeat echo showed mild global hypokinesis with severe hypokinesis of inferior wall, mid to distal aneroseptum and apex, LVEF 30%, mild to moderate , RVSP > 55 * Potential discharge to [facility]: 06/26/2016. 2. Type 2 Diabetes mellitus with peripheral neuropathy * Continue low dose NSS for now as we have restarted 40 U SC levemir QPM * If accuchecks remain uncontrolled, increased to medium dose NSS : FSG: * 325, 268,286,218 * Accuchecks TIDACHS 3. HTN, HLD * Monitor BP closely: BP Overnight: 138/66-144/82 * Owing to the patient's reduced ejection fraction, the funeral home associate recommended that we should begin the patient on Entresto (Sacubitril/Valsartan 49/51). Dosing 49/51 MG twice a day. * Monitor the patient or any signs of hypotension. In the interim we discontinued his Losartan and Imdur. * For now, pravastatin 80 mg PO daily, toprol XL 200 mg PO daily 4. Mood disorder, depression, insomnia * Continue zoloft 150 mg PO daily, mirtazapine 30 mg PO QPM, neurontin 100 mg PO BID 5. History of recurrent falls * Patient had 1 fall 06/24/2016 after not asking for help when getting up from bedside chair; no previous dizziness or presyncope symptoms prior to fall. Due to the fact that patient was on IV heparin and had a head strike, will obtain head CT without IV contrast to rule out bleed, No acute intracranial pathology compared to 06/11/2016. * PT evaluated patient yesterday and suggested patient be discharged to a short term rehab facility 6. Chronic pain * Patient reports that he is on roxicodone 5 mg PO Q6 at home but rarely takes more than 2 tabs daily; he requests his meds be made only as needed, thus we have changed it to Q6P Heparin SC 5000 Q8 DNR/DNI DVTP: Mechanical Mild to severe pain pathway CC3 diet Problem List: 1. HLD (hyperlipidemia) 2. HTN (hypertension) 3. Diabetes mellitus type 2 in obese 4. Aortic stenosis 5. Carotid stenosis, bilateral 6. NSTEMI (non-ST elevated myocardial infarction) 7. Elevated troponin 8. Fall Pain Ratin Pain Location: No Pain Pain Goal: Remain pain free Pain Plan: Percocet as needed Tomorrow's Labs & Rationales: NA - Pending Discharge Consulting Request: Consulting Specialty: Cardiology Consulting Physician: Dr. Lilly MD Reason for Consult: Elevated troponins
[2016-06-25 08:00] VITALS: BP 144/82
--- NOTE | 2016-06-25 14:34 | PN- Cardiology ---
Subjective Subjective: Patient resting comfortably and offers no complaints. Objective Vital Signs and I&Os Vital Signs Date Time Temp Pulse Resp B/P B/P Pulse O2 O2 Flow FiO2 Mean Ox Delivery Rate 06/25 1010 98.6 63 20 144/82 06/25 1010 98.6 63 20 144/82 06/25 0800 93 Room Air Room Air 06/25 0800 98.6 64 20 144/82 92 Room Air Room Air 06/25 0000 98 Nasal 2.0L Cannula 06/24 2200 98.6 64 20 140/80 96 Nasal 2.0L Cannula 06/24 2135 64 140/80 06/24 1600 Nasal 2.0L Cannula 06/24 1600 97.2 60 26 138/66 96 Nasal 2.0L Cannula 06/24 1440 97.8 60 22 130/64 Intake & Output 06/25 1600 06/25 0800 05/05 0000 / 1600 06/24 0800 06/24 0000 Intake Total 202 301 6161 100 600 Output Total 250 450 750 Balance 100 -130 750 100 -150 Intake, Oral 761 207 9278 100 600 Number 0 1 Bowel Movements Output, Urine 250 450 750 Patient 208 lb Weight Physical Exam: General: no apparent distress. Alert. Eyes: No obvious scleral icterus. HEENT: No jugular venous distention or abnormal jugular venous pulsations. Cardiovascular: Normal intensity S1/S2. 1/6 systolic murmur. Left-sided pacemaker noted. Respiratory: Lungs clear to auscultation bilaterally. Abdomen: Distended without guarding, nontender Musculoskeletal: No clubbing or cyanosis noted, trace lower extremity edema Skin: Warm Neurologic: No gross focal deficits noted. Current Medications: Current Medications Sig/Theodore Start time Last Medication Dose Route Stop Time Status Admin Acetaminophen 650 MG Q6P PRN 06/21 0745 AC PO Aspirin 81 MG DAILY 06/21 1000 AC 06/25 PO 1010 Clopidogrel Bisulfate 75 MG DAILY 06/21 1159 AC 06/25 PO 1010 Docusate Sodium 100 MG .STK-MED ONE 06/24 2146 DC PO 06/25 2147 Docusate Sodium 100 MG DAILY NEEDED PRN 06/23 1115 AC 06/24 PO 2138 Gabapentin 100 MG BID 06/21 1000 AC 06/25 PO 1010 Heparin Sodium 5,000 UNIT Q8 06/25 0851 AC 06/25 (Porcine) SC 0907 Insulin Aspart 0 TIDAC 06/22 0800 AC 06/25 SC 1147 Insulin Detemir 40 UNITS QPM 06/22 2200 AC 06/24 SC 2136 Metoprolol Succinate 200 MG DAILY 06/21 1200 AC 06/25 PO 1010 Mirtazapine 30 MG QPM 06/21 2200 AC 06/24 PO 2133 Multivitamins 1 TAB DAILY 06/21 1000 AC 06/25 PO 1010 Oxycodone HCl 5 MG Q6H PRN 06/22 0845 AC PO Oxycodone/ 2 TAB Q6P PRN 06/21 0745 AC Acetaminophen PO Pravastatin Sodium 80 MG 1700 06/21 1700 AC 06/24 PO 1639 Ranolazine 500 MG BID 06/21 1201 AC 06/25 PO 1010 Sertraline HCl 150 MG 06/21 AC 06/24 PO 2134 Results Last 48 Hrs of Labs/Mics: Laboratory Tests 06/25/16 0351: Anion Gap 9, Estimated GFR 59 L, Glucose 226 H, Calcium 8.0 L, Phosphorus 2.6 , Magnesium 2.1, Total Bilirubin 1.0, AST 30, ALT 65, Albumin 3.2 L 06/24/16 0354: Anion Gap 10, Estimated GFR 54 L, Glucose 208 H, Calcium 8.5, Phosphorus 3.2, Magnesium 2.1, Total Bilirubin 0.9, AST 55, ALT 86 H, Albumin 3.4 L, CBC w Diff NO MAN DIFF REQ, RBC 3.72 L, MCV 83.3, MCH 27.7, RDW 17.9 H, MPV 8.4, Gran % 74.8, Lymphocytes % 13.6 L, Monocytes % 9.7 H, Eosinophils % 1.3, Basophils % 0.6, Absolute Granulocytes 5.3, Absolute Lymphocytes 1.0 L, Absolute Monocytes 0.7 H, Absolute Eosinophils 0.1, Absolute Basophils 0, PUBS MCHC 33.3 Recent Imaging Studies: Telemetry tracings were personally reviewed and show a paced rhythm Assessment/Plan Assessment/Plan 1. Possible recurrent NSTEMI with recent non-ST elevation myocardial infarction 04/2016 with new ischemic cardiopathy and two-vessel CAD by cardiac catheterization at (including total RCA oclusion) without obvious targets for PCI per report 2. High-grade heart block status post permanent pacemaker 2015 3. Previous history of recurrent falls/drop atacks 4. Hx of bilateral carotid stenosis with complete occlusion of the left carotid internal artery (felt not to be a surgical candidate by vascular surgery) 5. Aortic stenosis, mild 6. Hypertension, hyperlipidemia, and diabetes mellitus 7. Hx of mild cognitive impairment The patient is resting comfortably without any active symptoms. It appears his ARB and Imdur were held in anticipation of starting Entresto but it is not clear if this medication has been initiated yet (it is not listed as an active medication in [facility]?). Until Entresto is started the patient should be maintained on his daily ARB and Imdur. He is awaiting life vest fitting prior to discharge. Defer additional evaluation of his cognitive impairment to the primary team but may benefit from psychiatric/geriatric evaluation. He is planned for short-term rehab after his LifeVest fitting and should follow up in my office within 1 week of discharge. Brendon Carr MD [facility] Continue telemetry? No
[2016-06-25 16:00] VITALS: BP 160/72
== END 2016-06-25 19:38 | DRG 282 ==
LOC: ERH 05:31 → ERHI 06:52 → CRI 06:52 → ENRESERV 07:31 → EDBEDREQ 09:11 → EDBEDREQTM 09:12 → CRI 10:01
PROVIDERS: Internal Medicine; Internal Medicine Endocrinology, Diabetes & Metabolism; Pediatrics; Student in an Organized Health Care Education/Training Program; ADMIT Internal Medicine Interventional Cardiology
DX: I21.4 Non-ST elevation (NSTEMI) myocardial infarction (principal); I65.23 Occlusion and stenosis of bilateral carotid arteries; E11.42 Type 2 diabetes mellitus with diabetic polyneuropathy; I35.0 Nonrheumatic aortic (valve) stenosis; E78.5 Hyperlipidemia, unspecified; I10 Essential (primary) hypertension; Z95.0 Presence of cardiac pacemaker; F32.9 Major depressive disorder, single episode, unspecified; Z66 Do not resuscitate; I25.10 Atherosclerotic heart disease of native coronary artery without angina pectoris; G31.84 Mild cognitive impairment of uncertain or unknown etiology; I25.2 Old myocardial infarction; I25.5 Ischemic cardiomyopathy; Z79.4 Long term (current) use of insulin; Z87.891 Personal history of nicotine dependence
CPT/HCPCS: CCU; 36415; 82436; 93005; 93010; 93306; 96372; 96374; 97110-GO; 97116-GO; 97161-GP; 97530-GO; 99291; J1644; J1940; J3490; J7508

== ENCOUNTER 2016-07-27 07:35 | Inpatient (IN) | payer OTHER ==
[~2016-07-27] VITALS: Ht 177.8 cm; Wt 108.9 kg
[~2016-07-27 07:35] MED LIST changes: +ALBUTEROL2.5 MG/3 M INH/SOL; +ASPIRIN81 M4 PO; +ENTRESTO 49MG/51MG PO; +LANTUS SOL100 UNIT/1 SC; +METOPROLOL SUC100 M2 PO; +RANEXA500 M1 PO; +REMERON30 M3 PO; +TOPROL XL100 M1 PO
--- NOTE | 2016-07-27 07:42 | ED DYSPNEA/ASTHMA COMPLAINT ---
History of Present Illness General Chief Complaint: Dyspnea (COPD, CHF, Other) Stated Complaint: SOB Source: patient, EMS, W10 Exam Limitations: no limitations Vital Signs & Intake/Output Vital Signs & Intake/Output Vital Signs Date Time Temp Pulse Resp B/P B/P Pulse O2 O2 Flow FiO2 Mean Ox Delivery Rate 07/27 1736 98.2 91 18 160/84 95 Nasal 4.0L Cannula 07/27 1647 98.2 91 22 150/82 94 Nasal 3.0L Cannula 07/27 1551 95 Nasal 4.0L Cannula 07/27 1532 98.1 91 20 138/88 92 Nasal 2.0L Cannula 07/27 1521 98.1 07/27 1422 90 07/27 1323 95.6 80 18 129/72 92 Room Air 07/27 0943 98.6 73 18 124/60 4 Nasal 3.0L Cannula 07/27 0900 88 07/27 0807 100 Aerosol 6.0L Mask 07/27 0743 97.9 96 24 138/62 100 Non ReBreather Allergies Coded Allergies: No Known Allergies (06/07/16) Reconcile Medications Albuterol Sulfate 2.5 MG/3 ML (0.083 %) VIAL.NEB 1 Vial INH/ROSELINE Q4P PRN SOB ( Reported) Aspirin (Aspirin*) 81 MG TAB.CHEW 1 TAB PO DAILY HEART HEALTH (Reported) Cholecalciferol (Vitamin D3) (Vitamin D3) 1,000 UNIT CAPSULE 1 CAP PO 0900 SUPPLEMENT (Reported) Clopidogrel Bisulfate (Clopidogrel) 75 MG TABLET 1 TAB PO DAILY BLOOD THINNER (Reported) Furosemide 20 MG TABLET 1 TAB PO DAILY WATER PILL (Reported) Gabapentin 100 MG CAPSULE 1 CAP PO BID PAIN MX (Reported) Hydrochlorothiazide 25 MG TABLET 1 TAB PO DAILY BP/DIURETIC (Reported) Insulin Glargine,Hum.rec.anlog (Lantus Solostar) 100 UNIT/ML (3 ML) INSULN.PEN 40 UNITS SC QPM DIABETES (Reported) Insulin Lispro (Humalog Kwikpen U-100) 100 UNIT/ML INSULN.PEN 18 UNITS SC WM DM (Reported) Metformin HCl (Metformin HCl ER) 500 MG [id number] 3 TAB PO 1630 DIABETES ( Reported) Metoprolol Succ XL (Toprol XL) 100 MG TAB.ER.24H 2 TAB PO DAILY HTN Mirtazapine (Remeron) 30 MG TABLET 1 TAB PO QPM DEPRESSION (Reported) Pravastatin Sodium (Pravachol) 80 MG TABLET 1 TAB PO 1630 CHOLESTEROL ( Reported) Ranolazine (Ranexa) 500 MG TAB.ER.12H 1 TAB PO BID anti-anginal Sacubitril/Valsartan (Entresto 49 MG-51 MG Tablet) 49 MG-51 MG TABLET 1 TAB PO BID HEART (Reported) Sertraline HCl (Zoloft) 100 MG TABLET 1.5 TAB PO 2000 MENTAL HEALTH (Reported ) Tramadol HCl 50 MG TABLET 1 TAB PO Q8P PRN PAIN (Reported) Trazodone HCl 100 MG TABLET 1 TAB PO QPM SLEEP (Reported) Triage Nurses Notes Reviewed? yes Onset: Abrupt Duration: hour(s): (FEW) Timing: single episode today Severity: moderate, severe Activities at Onset: rest HPI: This is a 76 year old male with history of diabetes living in a jail because he cannot take care of himself who presents with sudden onset of sob after waking up this morning. No cough, no fevers. Patient denies any chest pain. No history of pulmonary problems that he is aware. He is an former smoker. Denies any home oxygen or inhaler use. No history of congestive heart failure that is reported. He states that after he woke up he started to feel short of breath. Denies any productive cough. He was not eating at the time. He does not have a roommate that facility. Denies any sick contacts that he knows of. Patient received 3 nebs and IV cimetidine via EMS. They found him to be hypoxic in the field in the 80's. (KOBE SORIA,[facility]) Past History Travel History Traveled to [place] past 21 day No Medical History Any Pertinent Medical History? see below for history Neurological: POOR MEMORY NEUROPATHY AMNESIA EENT: NONE Cardiovascular: hypertension, PACE MAKER L CHEST WALL Respiratory: NONE Gastrointestinal: NONE Hepatic: NONE Renal: NONE Musculoskeletal: CHRONIC R SHOULDER Psychiatric: anxiety, depression, ADJUSTMENT DISORDER Endocrine: diabetes Blood Disorders: NONE Cancer(s): NONE ACCOUNT ANALYST/Reproductive: NONE History of MRSA: No History of VRE: No History of CDIFF: No Surgical History Surgical History: Right shoulder repair S/P PACER PLACEMENT Psychosocial History Who do you live with Patient/Self Services at Home None What is your primary language Urdu Family History Family History, If Any: BROTHER Cardiac pacemaker Sinus bradycardia Relation not specified for: Diabetes mellitus FH: hypertension FH: myocardial infarction Hx Contributory? No (VICENTA BULLOCK MD) Review of Systems Review of Systems Constitutional: Denies: chills, fever. EENTM: Reports: no symptoms. Respiratory: Reports: hemoptysis, short of breath. Denies: sputum production. Cardiovascular: Denies: chest pain. GI: Denies: abdominal pain, nausea, vomiting. Genitourinary: Denies: discharge, dysuria. Musculoskeletal: Reports: no symptoms. Skin: Reports: no symptoms. Neurological/Psychological: Denies: confusion. Hematologic/Endocrine: Denies: bruising, bleeding, polyuria, polydipsia. Immunologic/Allergic: Denies: splenectomy. All Other Systems: Reviewed and Negative (VICENTA BULLOCK MD) Physical Exam Physical Exam General Appearance: well developed/nourished, alert, awake, mild distress, moderate distress Head: atraumatic, normal appearance Eyes: Bilateral: normal appearance, PERRL, EOMI. Ears, Nose, Throat: normal pharynx, normal ENT inspection, hearing grossly normal Neck: normal inspection, supple, full range of motion Respiratory: decreased breath sounds, crackles (AT BASES) Cardiovascular: regular rate/rhythm Peripheral Pulses: 2+ radial (R), 2+ radial (L) Gastrointestinal: normal bowel sounds, soft, non-tender Extremities: LEFT LEG PEDAL EDEMA> RIGHT LEG Neurologic/Psych: no motor/sensory deficits, awake, alert, oriented x 3 Skin: intact, normal color, warm/dry Core Measures ACS in differential dx? Yes Severe Sepsis Present: No Septic Shock Present: No (VICENTA BULLOCK MD) Progress Differential Diagnosis: CHF, COPD, pulmonary embolism, pneumonia Plan of Care: Orders Procedure Date/time Status Regular Diet 07/27 D Active OXYGEN SETUP (GEN) 07/27 1826 Active Saline Lock 07/27 1826 Active Admit to inpatient 07/27 182 Active Vital Signs 07/27 1826 Active Activity/Ambulation 07/27 1826 Active Code Status 07/27 182 Active EKG 07/27 1713 Active ARTERIAL BLOOD GAS (GEN) 07/27 1537 Complete EKG 07/27 1533 Active ED CRISIS PSYCH CONSULT 07/27 1427 Active TROPONIN LEVEL 07/27 1130 Complete LACTIC ACID 07/27 1041 Complete Add-on Test (ER Only) 07/27 0853 Active D-DIMER 07/27 800 Complete B-TYPE NATRIURETIC PEP (BNP) 07/27 800 Complete RT ED ORDERS 07/27 740 Complete BLOOD CULTURE 07/27 740 Active TROPONIN LEVEL 07/27 740 Complete PARTIAL THROMBOPLASTIN TIME 07/27 740 Complete PROTHROMBIN TIME 07/27 740 Complete LACTIC ACID 07/27 740 Complete COMPREHENSIVE METABOLIC PANEL 07/27 740 Complete CBC WITHOUT DIFFERENTIAL 07/27 740 Complete EKG 07/27 740 Active Laboratory Tests 07/27/16 1625: pH 7.44, pCO2 32 L, pO2 74 L, HCO3 21, ABG O2 Sat (Measured) 94.0 L, P-50 ( Temp Corrected) N, Carboxyhemoglobin 0.6 L, O2 Concentration % 4L, O2 Delivery Method N/C, Phlebotomy Draw Site RIGHT BRACHIAL 07/27/16 1144: Troponin I 0.03 07/27/16 1144: Lactic Acid 1.5 07/27/16 0801: Anion Gap 9, Estimated GFR > 60, BUN/Creatinine Ratio 30.0 H, Glucose 191 H, Lactic Acid 1.4, Calcium 8.8, Total Bilirubin 0.7, AST 19, ALT 35, Alkaline Phosphatase 58, Troponin I 0.02, Uwf-X-Vzookpyqvfu Pept 4110 H, Total Protein 6.4, Albumin 3.5, Globulin 2.9, Albumin/Globulin Ratio 1.2, PT 10.6, INR 1.01, APTT 31, D-Dimer High Sensitivty < 200, CBC w Diff NO MAN DIFF REQ, RBC 4.28 L, MCV 81.9, MCH 27.0, RDW 17.5 H, MPV 8.3, Gran % 79.1 H, Lymphocytes % 11.5 L, Monocytes % 7.9, Eosinophils % 1.3, Basophils % 0.2, Absolute Granulocytes 5.7, Absolute Lymphocytes 0.8 L, Absolute Monocytes 0.6, Absolute Eosinophils 0.1, Absolute Basophils 0, PUBS MCHC 33.0 07/27/16 0742: Tvm-U-Olozppzcbak Pept Cancelled Microbiology 07/27 833 BLOOD: Blood Culture - RECD 07/27 800 BLOOD: Blood Culture - RECD DUONEB, EKG, CXR, LABS ORDERED. D-DIMER ADDED ON. 11:34 AM PATIENT SIGNED OUT TO DR SALDAÑA. REPEAT TROPONIN ORDERED. IV LASIX GIVEN. (KOBE SORIA,VICENTA) Diagnostic Imaging: Viewed by Me: Radiology Read. Discussed w/RAD: Radiology Read. CXR Impression: PATIENT: AUSTIN LI PRESENT AGE: 76 PATIENT ACCOUNT NO: [id number] : 42 LOCATION: [facility] ORDERING PHYSICIAN: VICENTA BULLOCK MD SERVICE DATE: 07/27/16 EXAM TYPE: RAD - XRY -PORTABLE CHEST XRAY EXAMINATION: XR PORTABLE CHEST CLINICAL INFORMATION: Shortness of breath and hypoxia. COMPARISON: 06/21/2016. TECHNIQUE: Portable AP upright view of the chest was obtained. FINDINGS: The cardiomediastinal silhouette is stable appearing with a left-sided pacemaker and dual leads again noted. Heart size upper limits normal to mildly enlarged. The lungs and pleural spaces appear clear without evidence of congestion, consolidation, or significant appearing effusion or atelectasis. There is no evidence of pneumothorax or pulmonary edema. Included osseous structures demonstrate glenohumeral joint replacement on the right. IMPRESSION: Stable appearing chest x-ray without evidence of an acute intrathoracic process. DICTATED BY: WILLARD HASSAN MD DATE/TIME DICTATED:07/27/16820 CAN TECHNICIAN:ERIKA DATE/ TIME TRANSCRIBED:07/27/16820 CONFIDENTIAL, DO NOT COPY WITHOUT APPROPRIATE AUTHORIZATION. <Electronically signed in Other Vendor System> SIGNED BY: WILLARD HASSAN MD 07/27/16826 Initial ED EKG: pacemaker rhythm Prior EKG: unchanged Hand-Off Endorsed To: IRVIN SALDAÑA MD Endorsed Time: 1120 Pending: labs (REPEAT TROPONIN), other (REEVALUATION) (VICENTA BULLOCK MD) Comments: 07/27/2016 12 07 PM patient has decided to leave the emergency department despite outstanding repeat testing. His lungs are clear this point and his heart tones are regular. He has mild pretibial edema. His room air oxygen saturation is 96%. Chest x-ray is unrevealing. I will sign Austin out AGAINST MEDICAL ADVICE but I recommended he follow up with his primary care physician or return to the emergency department if any worsening. [id number] patient's brother came to the emergency department but refuses to take him home as the patient is leaving AGAINST MEDICAL ADVICE. Patient himself still expects his brother to take him home and there is some question as to whether or not he is confused at this point. I will ask for a crisis consultation to assess for medical competence. 1557 patient appears comfortable taking a breathing treatment. His air entry is diminished but he has end-expiratory faint wheezing on exam. Oxygen saturation is 100% during the breathing treatment. Heart rate and blood pressure are normal currently. Blood gases being drawn. Patient has been evaluated by the inpatient psychiatric nurse practitioner and deemed competent for medical decision making. fortunately patient is now compliant with further treatment and evaluation. Patient signed out to Dr. Hernández pending additional nebulizer treatment and blood gas evaluation. (DRU SORIA,IRVIN Godinez) Comments: Patient unable to ambulate without increased work of breathing without oxygen (CYNTHIA SORIA,JENNIFER) Departure Departure Condition: Stable Clinical Impression Primary Impression: Dyspnea Referrals: GEOFFREY SORIA,SUSIE Sarmiento (PCP/Family) Departure Forms: Customer Survey General Discharge Information (KOBE SORIA,VICENTA) Departure Disposition: STILL A PATIENT Additional Instructions: Your signing out AGAINST MEDICAL ADVICE. You had a repeat troponin level ordered to further investigate the possibility of a heart attack. One EKG and troponin level is not necessarily a note to rule out an acute heart condition. Rest, no exertion. Low-salt diet. Continue your current medications and in particular take her albuterol inhaler every 4-6 hours. Follow-up with your primary care doctor this week for reevaluation. Return if any concerns or sudden worsening. Please note that there might be incidental findings in your evaluation that are unrelated to the current emergency department visit. Please notify your primary care doctor about this emergency department visit in order to obtain and review all of the testing performed so that these incidental findings can be monitored as needed. If you had an x-ray performed, please understand that some fractures may not be seen on the initial set of x-rays. If your symptoms persist you might need a repeat set of x-rays to check for such a fracture. If you had a laceration evaluated, please understand that foreign bodies such as glass or wood may not be visible to the naked eye or on plain x-rays. If the wound becomes red, swollen, increasingly more painful or if there is any drainage from the wound, please have it reevaluated by a physician for the possibility of a retained foreign body. Thank you for choosing the [facility] Emergency Department for your care. It was a pleasure to serve you today. Irvin Saldaña M.D. [facility] (DRU SORIA,IRVIN Godinez) Admission Note Spoke With: CHEO FUNG MD Documentation of Exam: Documentation of any treatments & extenuating circumstances including Concerns Regarding Discharge (functional status, medication knowledge or non-compliance, living conditions, etc.) that warrant an admission rather than observation: Supplemental oxygen and cardiac monitoring cardiology evaluation IV diuresis medication adjustment physical therapy continuing care discharge plan (CYNTHIA SORIA,JENNIFER) Critical Care Note Critical Care Note Critical Care Time: non-applicable (KOBE SORIA,VICENTA)
--- NOTE | 2016-07-27 07:47 | NUR ---
PT BIBA FROM [facility] FOR SOB. PER EMS FACILITY STATES PT BECAME SOB WITHIN 15 MINUTES OF WALKING. PT DENIES CHEST PAIN. PT STATES HE HAD JUST GOTTEN UP WHEN HE FELT SOB, PT STATES HE HAD A NORMAL DAY AND NIGHT OTHERWISE. PT ALSO NOTED TO HAVE SOME MILD EDEMA TO BOTH LOWER EXTERMITIES. PT DENIES HX OF CHF OR COPD. PT NOTED TO HAVE DIMINISHED BREATH SOUNDS BILATERALLY. PT GIVEN 3 DUONEBS ADN 125 MG OF SOLUMEDROL BY EMS ENROUTE.
--- NOTE | 2016-07-27 07:49 | NUR ---
RT AT BEDSIDE
--- NOTE | 2016-07-27 08:04 | NUR ---
LABS DRAWN AND SENT, LAV,SST,BLUE,RIOS TOP FIRST SET OF B/C SENT.
[2016-07-27] MEDS ORDERED: CLOPIDOGREL75 M1 PO (08:07)
[2016-07-27 08:09] LABS: ABSOLUTE BASOPHIL COUNT 0 /CUMM (0.0-0.2); ABSOLUTE EOSINOPHIL COUNT 0.1 /CUMM (0.0-0.7); ABSOLUTE GRANULOCYTE CT 5.7 /CUMM (1.4-6.5); ABSOLUTE LYMPH COUNT 0.8 /CUMM (1.2-3.4); ABSOLUTE MONOCYTE COUNT 0.6 /CUMM (0.10-0.60); BASOPHIL % 0.2 % (0.0-2.0); EOSINOPHIL % 1.3 % (0-5); GRANULOCYTE % 79.1 % (42.2-75.2); HEMATOCRIT 35.1 % (42-52); MEAN CORPUSCULAR VOLUME 81.9 FL (80.0-94.0); MEAN PLATELET VOLUME 8.3 FL (7.4-10.4); PLATELET COUNT 177 /CUMM (130-400); RBC DISTRIBUTION WIDTH 17.5 % (11.5-14.5); RED BLOOD CELL CT 4.28 /CUMM (4.70-6.10); WHITE BLOOD CELL COUNT 7.2 /CUMM (4.8-10.8)
[2016-07-27] MEDS ORDERED: FUROSEMIDE20 M1 PO (08:12)
[2016-07-27] MEDS ORDERED: ENTRESTO 49 MG1 EACH PO (08:12)
[2016-07-27 08:19] LABS: PT 10.6 SEC (9.4-12.5); PTT 31 SEC (25-37)
--- NOTE | 2016-07-27 08:27 | RADIOLOGY REPORT ---
EXAMINATION: XR PORTABLE CHEST CLINICAL INFORMATION: Shortness of breath and hypoxia. COMPARISON: 06/21/2016. TECHNIQUE: Portable AP upright view of the chest was obtained. FINDINGS: The cardiomediastinal silhouette is stable appearing with a left-sided pacemaker and dual leads again noted. Heart size upper limits normal to mildly enlarged. The lungs and pleural spaces appear clear without evidence of congestion, consolidation, or significant appearing effusion or atelectasis. There is no evidence of pneumothorax or pulmonary edema. Included osseous structures demonstrate glenohumeral joint replacement on the right. IMPRESSION: Stable appearing chest x-ray without evidence of an acute intrathoracic process.
--- NOTE | 2016-07-27 08:36 | NUR ---
BLOOD CLUTURES OBTAINED AND SENT PT SAT 92% ON NC 2L
--- NOTE | 2016-07-27 09:24 | NUR ---
PT SNORING AT THIS TIME 02 SAT 93% ON 2L VIA NC
--- NOTE | 2016-07-27 09:58 | NUR ---
DR. BULLOCK AT BEDSIDE TO DISCUSS POC WITH PT AND BROTHER
--- NOTE | 2016-07-27 10:06 | NUR ---
PT GIVEN LASIX IV
--- NOTE | 2016-07-27 11:52 | NUR ---
PT REQUESTING FOOD DR. GONSALES PLACING DIET ORDER
--- NOTE | 2016-07-27 12:04 | NUR ---
PT STATES HE IS LEAVING WHEN HIS BROTHER GETS HERE DR. GONSALES AWARE IN SPEAKING WITH PT AT THIS TIME
--- NOTE | 2016-07-27 12:49 | NUR ---
PT UP EATING HIS LUNCH
--- NOTE | 2016-07-27 12:57 | NUR ---
PT WAITING FOR HIS RIDE HOME
--- NOTE | 2016-07-27 13:39 | NUR ---
PT SATS DROP TO 88% OFF THEN BACK UP TO 92% ON RA DR. GONSALES IN TO DISCUSS CONCERNS HE HAS IF PT LEAVES A
--- NOTE | 2016-07-27 14:14 | NUR ---
PT IS SIGNING OUT AMA TRANSPORT CALLED FOR PT
--- NOTE | 2016-07-27 14:29 | NUR ---
WENT BACK IN ROOM PT STATES HE FORGOT TO MENTION THAT HIS JAW HURT AND STATES MY BROTHER WILL BE HERE SOON TO PICK ME UP PT'S BROTHER JUST LEFT ROOM AND AWARE, PT DID NOT REMEMBER HIS BROTHER ENTERING ROOM AND TALKING WITH HIM PT PLACED BACK ON MONITOR DR. GONSALES MADE AWARE THAT PT IS CONFUSTED AT THIS TIME AND HAS BEEN OFF 02 FOR A FEW HOURS PLACED BACK ON MONITOR 02 VIA NC 2L
--- NOTE | 2016-07-27 15:30 | NUR ---
PSYCHIATRY AT BEDSIDE FOR EVALUATION. PT WITH SIGNIFICANTLY LABORED BREATHING AND WHEEZES NOTED ON AUSCULTATION. O2 SAT 91% 2LNC AND TITRATED TO 4LNC WITH IMPROVEMENT TO 94%. DENIES CP. REMAINS PACED WITH WIDE COMPLEXES.
--- NOTE | 2016-07-27 16:01 | NUR ---
RESPIRATORY THERAPIST AT BEDSIDE FOR BREATHING TX AND ABG
--- NOTE | 2016-07-27 16:19 | ED PSYCHIATRIST/APRN CONSULT ---
Psychiatrist/ROUGE MIXER ED Consult Assessment and Plan: Identifying Info: 76-year-old male who resides at assisted living facility brought in by ambulance to [facility] emergency department on 07/27/2016 for chief complaint of shortness of breath. Consult requested by Dr. Saldaña to assess patient capacity to make healthcare decisions regarding inability to decline workup for shortness of breath. CC: "I recall him being here and don't recall him leaving" HPI: Of note patient requested to leave AMA earlier today to return to [facility] where he resides. At that time there were no concerns for lack of capacity. He called his brother for ride who did arrive but left prior to taking the patient home presumably due to him being displeased with his brother for asking to leave prior to workup being complete. Shortly thereafter the patient could not recall that his brother had left which raises concerns about his ability to make the decision to decline care at this time. Patient denies any history of cognitive impairment or diagnoses of dementia. Per chart he has a history of "amnesia," as well as being a poor historian due to poor recall. 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 Abuse/Trauma: Not obtained Current Home Psychotropic Medications: Mirtazapine 30 mg daily at bedtime Sertraline 150 mg daily Trazodone 100 mg daily at bedtime Current Hospital Psychotropic Medications: None Assessment: Attempted to complete a Folstein Mini-Mental exam with the patient but he began to have great difficulty due to shortness of breath. He was able to accurately identify year, season, situation, place, recall 3 objects at 20 seconds, and spell "world" forwards and backwards. Part way through formalized exam patient needed to be repositioned and moved to another stretcher to difficulty breathing cutting exam short. Patient was accurately able to verbalize his situation, "I am here 'cause I couldn't breath" and it's and consequences "(If I go home now) I could ." He communicated a choice for treatment "I want to stay." Current Medications Sig/Theodore Start time Last Medication Dose Route Stop Time Status Admin Albuterol Sulfate 3 ML ONCE ONE 07/27 1545 DC 07/27 INH 07/27 1546 1548 Albuterol Sulfate 3 ML ONCE ONE 07/27 0745 DC 07/27 INH 07/27 0746 0807 Aspirin 0 .STK-MED ONE 07/27 1153 DC PO Aspirin 325 MG ONCE ONE 07/27 1145 DC 07/27 PO 07/27 1146 1151 Furosemide 40 MG ONCE ONE 07/27 1645 UNVr IV PUSH 07/27 1646 Furosemide 0 .STK-MED ONE 07/27 1552 DC IV Furosemide 0 .STK-MED ONE 07/27 1006 DC IV Furosemide 20 MG ONCE ONE 07/27 1000 DC 07/27 IV 07/27 1001 1005 Ipratropium Bradley 2.5 ML ONCE ONE 07/27 1545 DC 07/27 INH 07/27 1546 1548 Ipratropium Bradley 2.5 ML ONCE ONE 07/27 0745 DC 07/27 INH 07/27 0746 0807 Laboratory Tests 07/27/16 1625: pH 7.44, pCO2 32 L, pO2 74 L, HCO3 21, ABG O2 Sat (Measured) 94.0 L, P-50 ( Temp Corrected) N, Carboxyhemoglobin 0.6 L, O2 Concentration % 4L, O2 Delivery Method N/C, Phlebotomy Draw Site RIGHT BRACHIAL 07/27/16 1144: Troponin I 0.03 07/27/16 1144: Lactic Acid 1.5 07/27/16 0801: Anion Gap 9, Estimated GFR > 60, BUN/Creatinine Ratio 30.0 H, Glucose 191 H, Lactic Acid 1.4, Calcium 8.8, Total Bilirubin 0.7, AST 19, ALT 35, Alkaline Phosphatase 58, Troponin I 0.02, Ykm-P-Yiylwtgtxmy Pept 4110 H, Total Protein 6.4, Albumin 3.5, Globulin 2.9, Albumin/Globulin Ratio 1.2, PT 10.6, INR 1.01, APTT 31, D-Dimer High Sensitivty < 200, CBC w Diff NO MAN DIFF REQ, RBC 4.28 L, MCV 81.9, MCH 27.0, RDW 17.5 H, MPV 8.3, Gran % 79.1 H, Lymphocytes % 11.5 L, Monocytes % 7.9, Eosinophils % 1.3, Basophils % 0.2, Absolute Granulocytes 5.7, Absolute Lymphocytes 0.8 L, Absolute Monocytes 0.6, Absolute Eosinophils 0.1, Absolute Basophils 0, PUBS MCHC 33.0 07/27/16 0742: Sye-M-Lntljfjmcdt Pept Cancelled Differential diagnosis: By history major depressive disorder By history adjustment disorder Rule out mild intermittent confusion due to hypoxia Impression: At present while the patient is unable to fully participate in cognitive and capacity assessment, he appears to apparently understand the situation and its consequences and is able to verbalize his choice of treatment over no treatment. It is unclear if he fully understands all relevant information at this time but given his current medical situation's potential to be life threatening and the patient's charted full code status the threshold for satisfying capacity to consent to potentially life preserving measures is low. Recommendations: 1. Please evaluate and treat patient's shortness of breath per his request, he does have capacity to consent for treatment. 2. Carefully assess patient's ability to provide informed consent for any potentially invasive or high risk procedures. Thank you for including psychiatry in this case will be signing off. Please reconsult if needed. A total of 60 minutes was spent with the patient with more than 50% of the time spent in counseling and/or coordination of care.
--- NOTE | 2016-07-27 16:20 | NUR ---
MEDICATED WITH IV LASIX PER eMAR
--- NOTE | 2016-07-27 20:17 | NUR ---
PT REPOSITIONED FOR COMFORT. O2 SAT 94-95% ON 3LNC. APPEARS SLIGHTLY LESS DYSPNIC WITH PHYSICAL EFFORT AND ACTIVITY. REMAINS PACED RATE 80'S ON CM AND NORMOTENSIVE. CRACKERS AND ICE WATER PROVIDED PER REQUEST. CALL GONSALES IN REACH
--- NOTE | 2016-07-27 22:00 | NUR ---
PT WAS INCONTINENT OF URINE, CHANGED AND CLEANED BY BRIANNE VAUGHN
--- NOTE | 2016-07-27 23:08 | NUR ---
HOUSE STAFF IN ROOM FOR EVALUATION
--- NOTE | 2016-07-28 00:03 | History & Physical ---
ELIOJEANSUNDEEP 07/28/16 0003: General Information and HPI MD Statement: I have seen and personally examined ELOY LI and documented this H&P. The patient is a 76 year old M who presented with a patient stated chief complaint of Shortness of breath Source of Information: patient, old records Exam Limitations: unable to give history, clinical condition, confusion History of Present Illness: 76 year old gentleman from [facility] with PMH significant for Hypertension, hyperlipidemia, , diabetes mellitus type 2, diabetic peripheral neuropathy, history of recurrent falls, carotid stenosis with complete occlusion of the left carotid internal artery (not a surgical candidate), aortic stenosis,ischemic cardiomyopathy and two-vessel CAD by cardiac cath including total RCA occlusion previously admitted in November 2015 for symptomatic bradycardia s/p MRI compatible dual-chamber pacemaker 12/05/2015 sent to [facility] for shortness of breath and desaturation to the 80s. On interview he seemed confused and was not aware of where he was. Oriented to person only. He kept thinking that he was at his daughter's house. Reported shortness of breath on walking 20 steps. Denied fever, chills, cough, b/l leg swelling, bowel and bladder symptoms. At baseline says he sleeps on a recliner with two pillows. Allergies/Medications Allergies: Coded Allergies: No Known Allergies (06/07/16) Home Med list Albuterol Sulfate 2.5 MG/3 ML (0.083 %) VIAL.NEB 1 Vial INH/ROSELINE Q4P PRN SOB ( Reported) Aspirin (Aspirin*) 81 MG TAB.CHEW 1 TAB PO DAILY HEART HEALTH (Reported) Cholecalciferol (Vitamin D3) (Vitamin D3) 1,000 UNIT CAPSULE 1 CAP PO 0900 SUPPLEMENT (Reported) Clopidogrel Bisulfate (Clopidogrel) 75 MG TABLET 1 TAB PO DAILY BLOOD THINNER (Reported) Furosemide 20 MG TABLET 1 TAB PO DAILY WATER PILL (Reported) Gabapentin 100 MG CAPSULE 1 CAP PO BID PAIN MX (Reported) Hydrochlorothiazide 25 MG TABLET 1 TAB PO DAILY BP/DIURETIC (Reported) Insulin Glargine,Hum.rec.anlog (Lantus Solostar) 100 UNIT/ML (3 ML) INSULN.PEN 40 UNITS SC QPM DIABETES (Reported) Insulin Lispro (Humalog Kwikpen U-100) 100 UNIT/ML INSULN.PEN 18 UNITS SC WM DM (Reported) Metformin HCl (Metformin HCl ER) 500 MG [id number] 3 TAB PO 1630 DIABETES ( Reported) Metoprolol Succ XL (Toprol XL) 100 MG TAB.ER.24H 2 TAB PO DAILY HTN Mirtazapine (Remeron) 30 MG TABLET 1 TAB PO QPM DEPRESSION (Reported) Pravastatin Sodium (Pravachol) 80 MG TABLET 1 TAB PO 1630 CHOLESTEROL ( Reported) Ranolazine (Ranexa) 500 MG TAB.ER.12H 1 TAB PO BID anti-anginal Sacubitril/Valsartan (Entresto 49 MG-51 MG Tablet) 49 MG-51 MG TABLET 1 TAB PO BID HEART (Reported) Sertraline HCl (Zoloft) 100 MG TABLET 1.5 TAB PO 2000 MENTAL HEALTH (Reported ) Tramadol HCl 50 MG TABLET 1 TAB PO Q8P PRN PAIN (Reported) Trazodone HCl 100 MG TABLET 1 TAB PO QPM SLEEP (Reported) Compliance With Home Meds: UNKNOWN Past History Travel History Traveled to [place] past 21 day No Medical History Neurological: POOR MEMORY NEUROPATHY AMNESIA EENT: NONE Cardiovascular: hypertension, PACE MAKER L CHEST WALL Respiratory: NONE Gastrointestinal: NONE Hepatic: NONE Renal: NONE Musculoskeletal: CHRONIC R SHOULDER Psychiatric: anxiety, depression, ADJUSTMENT DISORDER Endocrine: diabetes Blood Disorders: NONE Cancer(s): NONE POT FEEDER/Reproductive: NONE History of MRSA: No History of VRE: No History of CDIFF: No Surgical History Surgical History: Right shoulder repair S/P PACER PLACEMENT Past Family/Social History Family History Relations & Conditions if any BROTHER Cardiac pacemaker Sinus bradycardia Relation not specified for: Diabetes mellitus FH: hypertension FH: myocardial infarction Psychosocial History Where do you live? Extended Care Facility Who Do You Live With? self Services at Home: None Primary Language: Wolof Living Will? unknown Functional Ability ADLs Independent: dressing, eating, toileting, bathing. Ambulation: Walker was instructed to him but has not used it IADLs Independent: food prep, telephone. Needs Assist: shopping, housework, finances, transportation, medication admin. Review of Systems Review of Systems Constitutional: Denies: chills, diaphoresis, fever, malaise, weakness, unexplained weight loss. Cardiovascular: Denies: chest pain, edema, orthopena, palpitations, peripheral edema, syncope. Respiratory: Denies: cough, hemoptysis, orthopnea, short of breath, sputum production, stridor, wheezing. Exam & Diagnostic Data Last 24 Hrs of Vital Signs/I&O Vital Signs Date Time Temp Pulse Resp B/P B/P Pulse O2 O2 Flow FiO2 Mean Ox Delivery Rate 07/28 0000 99 Nasal 3.0L Cannula 07/27 2322 94 Nasal 3.0L Cannula 07/27 2222 97.8 82 18 126/64 95 Nasal 3.0L Cannula 07/27 2021 95 Nasal 3.0L Cannula 07/27 2006 98.9 82 22 155/72 95 Nasal 3.0L Cannula 07/27 1736 98.2 91 18 160/84 95 Nasal 4.0L Cannula 07/27 1647 98.2 91 22 150/82 94 Nasal 3.0L Cannula 07/27 1551 95 Nasal 4.0L Cannula 07/27 1532 98.1 91 20 138/88 92 Nasal 2.0L Cannula 07/27 1530 93 Nasal 4.0L Cannula 07/27 1521 98.1 07/27 1422 90 07/27 1323 95.6 80 18 129/72 92 Room Air 07/27 0943 98.6 73 18 124/60 4 Nasal 3.0L Cannula 07/27 0900 88 07/27 0807 100 Aerosol 6.0L Mask 07/27 0743 97.9 96 24 138/62 100 Non ReBreather Intake & Output 07/28 0800 06 0000 07/27 1600 Intake Total 480 0 Output Total 450 Balance 480 -450 Intake, Oral 480 0 Output, Urine 450 Patient 240 lb Weight Physical Exam General Appearance Alert, Mild Distress Skin No Rashes, No Significant Lesion HEENT Atraumatic, EOMI, Mucous Membr. moist/pink Neck Supple Cardiovascular Regular Rate, Normal S1, Normal S2 Lungs b/l decreased breath sounds, wheezing heard on excertion. increased work of breathing noted on excertion as well. Abdomen Normal Bowel Sounds, Soft, distended Extremities b/l +1 pitting edema to below knee Diagnostic Data EKG Results paced rhythm Other Results FINDINGS: The cardiomediastinal silhouette is stable appearing with a left-sided pacemaker and dual leads again noted. Heart size upper limits normal to mildly enlarged. The lungs and pleural spaces appear clear without evidence of congestion, consolidation, or significant appearing effusion or atelectasis. There is no evidence of pneumothorax or pulmonary edema. Included osseous structures demonstrate glenohumeral joint replacement on the right. IMPRESSION: Stable appearing chest x-ray without evidence of an acute intrathoracic process. Assessment/Plan Assessment: 76 year old gentleman [facility] significant for HFrEF, Hypertension , hyperlipidemia, , diabetes mellitus type 2, diabetic peripheral neuropathy, history of recurrent falls, carotid stenosis with complete occlusion of the left carotid internal artery (not a surgical candidate), aortic stenosis, previously admitted in November 2015 for symptomatic bradycardia s/p MRI compatible dual- chamber pacemaker 12/05/2015 ,ischemic cardiomyopathy and two-vessel CAD by cardiac cath including total RCA occlusion, during his admission in June 2016 he was was started on Sacubitril-Valsartan (ENTRESTO)and was discharged with LifeVest as a bridge to possible biventricular AICD in the future, history of anxiety, depression and adjustment disorder; sent to [facility] for shortness of breath and desaturation to the 80s. Vitals: afebrile, bp 155/72, 95 % on 3L, ABG done in ED showed respiratory alkalosis with hypoxia, normal d- dimer, mildly elevated pro-bnp with no acute abnormalities on CXR. Will be admitted for the following issues: problem list: Acute hypoxic respiratory failure (secondary to CHF versus aortic stenosis versus pulmonary hypertension) Delirium versus dementia ? Acute on chronic systolic heart failure Insulin-dependent diabetes Aortic stenosis depression/adjustment disorder Plan Admit to telemetry floor for continuous cardiac monitoring, vitals per protocol, strict I's and O's continueTRC/Nebs and supplemental oxygen Echo done 06/25/2016 showed Mild global hypokinesis with additional severe hypokinesis of the inferior wall, mid to distal anteroseptum, and apex. Left ventricular ejection fraction is estimated at 30 %. Right ventricular systolic pressure estimated to be elevated at > 55 mmHg. Diffuse thickening of the aortic valve cusps with reduced excursion. Ujwz-ax-rpdewwnz aortic stenosis (MALLORY estimated at 1.5 cm2 by continuity). He was diuresed however an accurate output was not measured, Will hold off diuresis for now Cardiology consult delirum could be secondary to hypoxia vs ? Polypharmacy, will check UA/ UC continue home meds of pravastatin, Entresto, Ranexa, metoprolol, gabapentin, aspirin, plavix, Mirtazapine,Sertraline, Trazodone 100 mg daily at bedtime monitor fingersticks, metformin on hold, continue levemir 40units qpm and ISS diabetic diet dvt ppx with sc heparin DNR/DNI As Ranked By This Provider Problem List: 1. Diabetes mellitus type 2 in obese 2. HTN (hypertension) 3. HLD (hyperlipidemia) 4. Aortic stenosis 5. Acute respiratory failure with hypoxia Core Measures/Miscellaneous Acute Coronary Syndrome ACS Diagnosis: No Date of most recent Echo 06/21/16 Last Known EF % 30 Cerebrovascular Accident CVA/TIA Diagnosis: No Congestive Heart Failure CHF Diagnosis: Yes Date of most recent Echo: 06/21/16 Last Known EF %: 30 VIDA/ARB for EF <40%: Yes VTE (View Protocol) VTE Risk Factors: Acute medical illness, Age > 40, CHF or Resp failure [facility] prophylaxis d/t: No contraindications No VTE Pharm Prophylaxis d/t: No contraindications VTE Diagnosis: No VTE Type: NONE VTE Confirmed by (Test): NONE Sepsis (View Protocol) Severe Sepsis Present: No Septic Shock Septic Shock Present: No Miscellaneous Documentation Attending Case Discussed With: CHEO FUNG MD Primary Care Physician: SUSIE HALE MD Patient sees these Specialists Dr. Carr Level of Patient Care: Telemetry NAZ SORIA,[facility] 07/28/16 0054: Resident Review Statement Resident Statement: examined this patient, discussed with internal medicine nurse, agreed with internal medicine nurse, discussed with family Other Findings: 76-year-old man with past medical history significant for hypertension, hyperlipidemia, diabetes type 2 on insulin, neuropathy likely secondary diabetes , carotid stenosis with complete left internal carotid artery occlusion, aortic stenosis, internal carotid artery occlusion, MRI compatible dual chamber pacemaker, ischemic cardiomyopathy with EF 30%, history of non-STEMI came to emergency department with chief complaint of shortness of breath on exertion. Vitals in emergency department patient afebrile, mild tachypnea, no tachycardia, 150s systolic blood pressure and diastolic 70 to 80s, oxygen saturation of 94-99 % on 3 L of nasal cannula. On examination patient was alert but not oriented to time person and place, not in any acute distress lying in the bed. S1 and S2 audible with pacemaker palpable on the left side of the upper chest, overall clear lung sounds with no rales. Abdominal examination distended abdomen with audible bowel sounds but no tenderness on examination, grossly intact neurological examination. Labs were significant for no leukocytosis white count of 7.2, chronic anemia, no significant electrolyte abnormality BUN of 33 and creatinine of 1.1 better than baseline, lactic acid of 1.4, proBNP of 4110, ABG showed respiratory alkalosis with hypoxemia PO2 of 74, INR of 1.01. Chest x-ray showed Stable appearing chest x-ray without evidence of an acute intrathoracic process. Patient was admitted on telemetry so for the management of following problems Acute Hypoxemic respiratory failure/? Congestive heart failure -Most likely non compliance with medications vs acute CHF exacerbation vs rule out ACS -No acute EKG ST changes and negative troponin 0.02 and 0.03. - Hemodynamically stable, 1+ve B/L Lowr extremity edema - CXR does not shows signs of fluid overload. - Admit to telemetry - Vitals q Shift - Monitor I/O - Daily weight - Cardio consult - Troponins and EKG to rule out AC - Last Echo was done in 06/21/2016 and showed ejection fraction of 30% - Consider repeat ECHO - Continue Entresto - Give Furosemide home dose - Continue Metoprolol - Check lipid panel in am. - ASA 81 mg Po daily - TRC nebs History of diabetes mellitus on metformin Continue Accu-Cheks Hold metformin Patient is on low-dose insulin sliding scale Patient is on subcutaneous heparin for DVT prophylaxis Patient is DNR/DNI Patient is on diabetic diet Patient is on pain pathway ANTONIETA SORIA, [facility] 07/28/16 0341: Attending MD Review Statement Attending Statement Attending MD Statement: examined this patient, discuss w/resident/PA/SECURITIES ATTORNEY, agreed w/resident/PA/SECURITIES ATTORNEY Attending Assessment/Plan: 76 yo M with h/o HTN, T2DM with neuropathy, carotid stenosis (complete left occlusion), s/p PPM (2016), ischemic cardiomyopathy with EF 30%, recently admitted to [place] (June 2016) for NSTEMI is brought in from Assisted Living for exertional dyspnea and noted to be hypoxic to 80's on field. While being treated with IV lasix in the ER, patient requested to leave AMA. Patient's brother refused to take him back home if he were leaving AMA. Psych consult was sought to assess capacity to make healthcare decisions and they have deemed him to have the capacity to consent for medical treatment. On our evaluation, patient seemed confused and reported coming in for chest pain. He states, his breathing is at baseline. Vitals stable except for hypoxia sats 98% on 5L. Exam: awake, alert, confused, oriented to person only. He appears tachypneic although he is not complaining. Difficult to assess JVD. Chest basilar few crackles and wheeze. Heart S1S2 regular, systolic murmur+. LE: 1-2+ pitting edema. Labs: D-dimer <200, BUN 33, lactic acid normal, trop neg, proBNP 4110. AB.44/32/74/21. CXR: no acute process. EKG: paced. Echo (June 2016): EF 30%, mild to mod aortic stenosis, RVSP > 55mmHg. 1. Acute hypoxemic respiratory failure likely multifactorial in the setting of acute on chronic systolic heart failure, with moderate aortic stenosis and pulmonary hypertension. He may have a component of COPD (ex-smoker) although no definitive PFT. Unclear if he is compliant with his medications. Tele admit, serial EKG and troponin, daily weights, strict I/O's. He diuresed about 950 cc after lasix 60 mg (some of the output was not measured). Will continue IV lasix 20 daily, obtain Cardio consult, no need for repeat echo. TRC nebs, no need for steroids. Eventual need for biventricular AICD. Continue Entresto, aspirin, plavix, BB, statin and ranexa. 2. Acute delirium vs. Questionable dementia. Unable to care for self at the assisted living, difficulty ambulating ?deconditioning. Frequent orientation, ? geriatric eval. Check TSH, B12, vit D. Avoid delirium triggers dehydration, constipation and sedative meds. PT eval. DVT ppx Hep SC. DNR/I.
--- NOTE | 2016-07-28 03:03 | NUR ---
PT HAD TAKEN OFF HIS NC IN HIS SLEEP AND AWOKE WITH A SATURATION OF 85%. PT HAS BILATERAL EXPIRATORY WHEEZING AND TACHYPNEA OF 36 AND HR 122. SPOKE WITH VANESA WHO ORDERED PT TO HAVE DUONEB.
--- NOTE | 2016-07-28 03:42 | Admission Certification ---
Admission Certification Certification Statement - As attending physician, I certify that at the time of - admission, based on clinical presentation, severity of - symptoms, need for further diagnostic testing and - therapeutic interventions, and risk of adverse outcomes - without in-hospital treatment, in my clinical assessment, - this patient requires an acute hospital stay for a minimum - of two nights or longer. I have also considered psychsocial - factors such as support system, advanced age, financial - issues, cognitive issues, and failed out-patient treatments, - past re-admission history, safety of patient, and lack of - compliance as applicable. Specific rationale supporting this admission is: Acute hypoxic respiratory failure, acute on chronic systolic heart failure. Acute delirium.
--- NOTE | 2016-07-28 03:55 | NUR ---
PATIENT LAYING ON HOSPITAL BED IN ROOM W/ LIGHTS DIMMED. HR: 80 PACED ON MONITOR, O2:93% 2LNC. PATIENT NOTED TO HAVE BEEN INCONTINENT OF URINE ONTO BED, LINENS CHANGED, PATIENT CHANGED. TURNED/ REPOSITIONED FOR COMFORT. PATIENT DENIES COMPLAINTS. REPORTS RELIEF OF SOB S/P RESP TX. VSS. PATIENT AWARE OF URINE SAMPLE ORDER, URINAL AT BEDSIDE W/ CALL GONSALES IN REACH.
--- NOTE | 2016-07-28 04:31 | NUR ---
IPOC CONTINUED AND UTD.
--- NOTE | 2016-07-28 05:27 | NUR ---
PATIENT AWAKE, ASSISTED TO RECLINER FROM HOSPITAL BED, O2:94% 2LNC THROUGHOUT REPOSITIONING. PATIENT NOTED UNSTABLE GAIT W/O ASSIST, ASSISTED BY CURT RN AND THIS RN W/O DIFFICULTY. DENIES SOB AT THIS TIME. PATIENT REMINDED AGAIN OF URINE SPECIMEN, REPORTS "CAN'T GO YET." HOUSE STAFF AWARE.
--- NOTE | 2016-07-28 06:00 | NUR ---
PATIENT VOIDED 100ML INTO URINAL, URINE SPECIMEN OBTAINED AND SENT TO LAB BY PAULINA DECKER (GERDA).
--- NOTE | 2016-07-28 06:17 | NUR ---
PATIENT MEDICATED W/ HEPARIN SC PER EMAR. TOLERATED WELL. NOTED TO HAVE REMOVED SELF FROM NASAL CANNULA, O2:92%RA, REPLACED BACK ONTO 2LNC, O2:96% 2LNC. DENIES ANY SOB. SITTING UPRIGHT ON RECLINER IN ROOM. FINGERSTICK:[id number].
--- NOTE | 2016-07-28 06:24 | NUR ---
IPOC CONTINUED AND UTD.
[2016-07-28 06:47] VITALS: BP 127/60
[2016-07-28 07:17] VITALS: BP 139/69
--- NOTE | 2016-07-28 07:20 | NUR ---
ASSUMED CARE OF PT AT THIS TIME. PT SITTING UP IN CHAIR. OXYGEN NOTED TO BE ON SIDE OF FACE. EXPLAINED TO PT THE IMPORTANCE OF WEARING HIS OXYGEN IN HIS NOSE. BREAKFAST TRAY PROVIDED, PT MEDICATED WITH INSULIN PER SLIDING SCALE WITH 4 UNITS NOVOLOG SC. PT OFFERS NO COMPLAINTS.
--- NOTE | 2016-07-28 07:41 | NUR ---
PT AT BEDSIDE FOR EVAL AT THIS TIME
--- NOTE | 2016-07-28 08:43 | NUR ---
PT REQUESTING TO LEAVE AT THIS TIME. EXLPAINED TO BE HE IS ADMITTED TO THE HOSPITAL AND STILL REQUIRING TO USE OXYGEN AT THIS TIME. PT STATING "I DONT CARE, I HAVE PLACES TO GO" "PLEASE CALL THE BUS TO COME AND PICK ME UP TO TAKE ME BACK HOME" MOD PAGED TO COME DOWN TO SPEAK TO PT AT THIS TIME
--- NOTE | 2016-07-28 09:22 | Event Note ---
Event Note Event Note: Called to see patient in the ER who is adamant to leave AGAINST MEDICAL ADVICE. Patient was admitted early this morning for acute hypoxic resp failure secondary to CHF exacerbation. I had a detailed discussion with patient regarding the risks of leaving against medical advise since he just came in last night and is still short of breath and still requires oxygen which he doesn't use at home. He also requires intravenous furosemide and close monitoring for a few more days which is why i do not feel comfortable sending him home at this time. Patient says he understands fully the consequences of leaving AGAINST MEDICAL ADVICE and would rather come back to the hospital if his symptoms worsen instead of staying today. He also says he has aides and nurses coming daily to care for him at home, as well as his twin brother whom he lives with. AMA paperwork signed. Attending Dr. Castellano informed.
--- NOTE | 2016-07-28 09:22 | NUR ---
GILL (RESIDENT) AT BEDSIDE AT THIS TIME, PT SIGNED OUT AMA PER RESIDENT.
--- NOTE | 2016-07-28 09:52 | NUR ---
[facility] CHAIR CAR BOOKED
--- NOTE | 2016-07-28 10:00 | NUR ---
PT ONLY WEARING HOSP GOWN, REFUISNG TO CHANGE INTO PANTS TO GO HOME. PT APPEARS VERY UPSET WITH STAFF MEMBERS AT THIS TIME, STATING "JUST LEAVE ME ALONE, I JUST WANT TO GO HOME" PT AWARE WAITING FOR [facility] TO HAN HERE TO TAKE HIM HOME
--- NOTE | 2016-07-28 10:18 | NUR ---
[facility] HERE TO TRANSPORT PT BACK TO ASSISTED LIVING ASSISTED LVIIGN CALLED AND MESSAGE LEFT, NO ANSWER AT THIS TIME.
--- NOTE | 2016-07-28 11:03 | NUR ---
Paged Taya Bradley to complete home reconsiliation to discharge patient.
--- NOTE | 2016-07-28 11:14 | Patient Discharge Instructions ---
Discharge Instructions General Discharge Information You were seen/treated for: Acute Hypoxic Resp failure 2/2 CHF exacerbation You had these procedures: none Special Instructions: You are leaving against medical advice despite repeated warning that this might be detrimental to your health! If your sypmtoms of cough and shortness of breath worsen please return to the ER Z[facility] as your disease condition may be worsening. Please ensure you take your home medications as prescribed. Please follow up with your PCP as soon as possible. Diet Recommended Diet: Diabetic Activity Activity Self Limited: Yes Acute Coronary Syndrome Inclusion Criteria At DC or during hospital stay patient has or had the following: ACS DIAGNOSIS No Discharge Core Measures Meds if any: Prescribed or Continued at Discharge Meds if any: NOT Prescribed or Continued at Discharge Congestive Heart Failure Inclusion Criteria At DC or during hospital stay patient has or had the following: CHF DIAGNOSIS Yes Discharge Core Measures Meds if any: Prescribed or Continued at Discharge VIDA/ARB for EF <40% Yes Meds if any: NOT Prescribed or Continued at Discharge Cerebrovascular accident Inclusion Criteria At DC or during hospital stay patient has or had the following: CVA/TIA Diagnosis No Discharge Core Measures Meds if any: Prescribed or Continued at Discharge Meds if any: NOT Prescribed or Continued at Discharge Venous thromboembolism Inclusion Criteria VTE Diagnosis No VTE Type NONE VTE Confirmed by (Test) NONE Discharge Core Measures - Per Current guidelines, there needs to be overlap - treatment for the first 5 days of Warfarin therapy. - If discharged on Warfarin prior to 5 days of - overlap therapy, the patient will need to be - assessed for post discharge needs including - *Post discharge parental anticoagulation - *Warfarin and/or parental anticoagulation education - *Follow up date to check INR post discharge At least 5 days overlap therapy as Inpatient No Meds if any: Prescribed or Continued at Discharge Note: Overlap Therapy is Warfarin and Anticoagulant Meds if any: NOT Prescribed or Continued at Discharge
--- NOTE | 2016-08-08 22:31 | Discharge Summary ---
See Addendum Visit Information Visit Dates Admission Date: 07/27/16 Discharge Date: 07/28/16 Hospital Course Course Attending Physician: JASON GOODMAN MD Primary Care Physician: GEOFFREY SORIA,SUSIE Sarmiento Hospital Course: 76-year-old man with past medical history significant for hypertension, hyperlipidemia, diabetes type 2 on insulin, neuropathy likely secondary diabetes , carotid stenosis with complete left internal carotid artery occlusion, aortic stenosis, internal carotid artery occlusion, MRI compatible dual chamber pacemaker, ischemic cardiomyopathy with EF 30%, history of non-STEMI came to emergency department with chief complaint of shortness of breath on exertion. Vitals in emergency department patient afebrile, mild tachypnea, no tachycardia, 150s systolic blood pressure and diastolic 70 to 80s, oxygen saturation of 94-99 % on 3 L of nasal cannula. On examination patient was alert but not oriented to time person and place, not in any acute distress lying in the bed. S1 and S2 audible with pacemaker palpable on the left side of the upper chest, overall clear lung sounds with no rales. Abdominal examination distended abdomen with audible bowel sounds but no tenderness on examination, grossly intact neurological examination. Labs were significant for no leukocytosis white count of 7.2, chronic anemia, no significant electrolyte abnormality BUN of 33 and creatinine of 1.1 better than baseline, lactic acid of 1.4, proBNP of 4110, ABG showed respiratory alkalosis with hypoxemia PO2 of 74, INR of 1.01. Chest x-ray showed Stable appearing chest x-ray without evidence of an acute intrathoracic process. Patient was given intravenous lasix in the ED with marked resolution of his symptoms. Assessment Acute Hypoxemic respiratory failure due to Congestive heart failure -Most likely due to non compliance with medications He had no acute EKG ST changes and negative troponin x 2 (0.02 and 0.03). He was hemodynamically stable, 1+ve B/L Lowr extremity edema. CXR did not shows signs of fluid overload. However patient was adamant to leave AGAINST MEDICAL ADVICE despite a detailed discussion with patient regarding the risks of leaving against medical advise since he just came in just the night before was was still short of breath and still required oxygen which he doesn't use at home. Patient expressed full understanding of the consequences of leaving AGAINST MEDICAL ADVICE and would rather come back to the hospital if his symptoms worsen instead of staying. He also reported that he has aides and nurses coming daily to care for him at home and has a twin brother whom he lives with. He signed the AMA paperwork and was allowed to leave. Complications: none Allergies: Coded Allergies: No Known Allergies (06/07/16) Significant Procedures: none Disposition Summary Disposition Principal Diagnosis: Acute Hypoxic respiratory failure, CHF excerbation Additional Diagnosis: hypertension, hyperlipidemia, diabetes type 2 on insulin, neuropathy likely secondary diabetes, carotid stenosis with complete left internal carotid artery occlusion, aortic stenosis, internal carotid artery occlusion, MRI compatible dual chamber pacemaker, ischemic cardiomyopathy with EF 30%, history of non- STEMI Discharge Disposition: left against medical adv Discharge Instructions General Discharge Information Code Status: Full Code Patient's Diet: Heart Healthy/CHF Patient's Activity: As tolerated Follow-Up Instructions/Appts: You are leaving against medical advice despite repeated warning that this might be detrimental to your health! If your sypmtoms of cough and shortness of breath worsen please return to the ER [facility] as your disease condition may be worsening. Please ensure you take your home medications as prescribed. Please follow up with your PCP as soon as possible. Medications at Discharge Discharge Medications: Continue taking these medications: Metformin HCl (Metformin HCl ER) 500 MG [id number] 3 Tablet ORAL 1630 Qty = 90 Comments: NOT GIVEN Pravastatin Sodium (Pravachol) 80 MG TABLET 1 Tablet ORAL 1630 Qty = 30 Comments: Last Taken: 06-23-16 Time: 5 PM Trazodone HCl (Trazodone HCl) 100 MG TABLET 1 Tablet ORAL Every night Comments: NOT GIVEN Sertraline HCl (Zoloft) 100 MG TABLET 1.5 Tablet ORAL 1999 Comments: Last Taken: 06/24/16 Time: 8 PM Cholecalciferol (Vitamin D3) (Vitamin D3) 1,000 UNIT CAPSULE 1 Capsule ORAL 0900 Comments: NOT TAKEN WHILE IN HOSPITAL Tramadol HCl (Tramadol HCl) 50 MG TABLET 1 Tablet ORAL EVERY 8 HOURS NEEDED as needed for PAIN Qty = 30 Comments: NOT GIVEN Hydrochlorothiazide (Hydrochlorothiazide) 25 MG TABLET 1 Tablet ORAL DAILY Comments: NOT TAKEN WHILE IN HOSPITAL Insulin Lispro (Humalog Kwikpen U-100) 100 UNIT/ML INSULN.PEN 18 Units Inject into fatty tissue WITH MEALS Comments: PT WAS ON A NOVOLOG SLIDING SCALE IN THE HOSPITAL. JUST BEFORE MEALS. LAST RECEIVED NOVOLOG 6UNITS SQ AT 1630 ON 06/25/16 Insulin Glargine,Hum.rec.anlog (Lantus Solostar) 100 UNIT/ML (3 ML) INSULN.PEN 40 Units Inject into fatty tissue Every night Qty = 15 Comments: Last Taken: 06-24-16 Time: 1200 PM Albuterol Sulfate (Albuterol Sulfate) 2.5 MG/3 ML (0.083 %) VIAL.NEB 1 Vial Inhale Solution EVERY 4 HOURS NEEDED as needed for SOB Qty = 75 Comments: NOT TAKEN WHILE IN HOSPITAL Mirtazapine (Remeron) 30 MG TABLET 1 Tablet ORAL Every night Comments: Last Taken: 06/25/16 Time: 9:30PM Aspirin (Aspirin*) 81 MG TAB.CHEW 1 Tablet ORAL DAILY Comments: Last Taken: 06/25/16 Time: 10 AM Gabapentin (Gabapentin) 100 MG CAPSULE 1 Capsule ORAL TWICE DAILY Comments: Last Taken: 06/25/16 Time: 10 AM Ranolazine (Ranexa) 500 MG TAB.ER.12H 1 Tablet ORAL TWICE DAILY Qty = 30 Comments: Last Taken: 06-24-16 Time: 10 AM Metoprolol Succ XL (Toprol XL) 100 MG TAB.ER.24H 2 Tablet ORAL DAILY Days = 30 Comments: Last Taken: 06-24-16 Time: 10 AM Clopidogrel Bisulfate (Clopidogrel) 75 MG TABLET 1 Tablet ORAL DAILY Qty = 18 Sacubitril/Valsartan (Entresto 49 MG-51 MG Tablet) 49 MG-51 MG TABLET 1 Tablet ORAL TWICE DAILY Furosemide (Furosemide) 20 MG TABLET 1 Tablet ORAL DAILY Copies To: SUSIE HALE MD
== END 2016-07-28 10:46 | disposition left against medical advice (07) | DRG 291 ==
LOC: ERH 07:35 → ERHI 18:27 → ERH 19:42 → ERHI 19:42 → ENRESERV 23:48 → ERHI 07-28 10:18
PROVIDERS: Emergency Medicine; ADMIT Student in an Organized Health Care Education/Training Program
DX: I11.0 Hypertensive heart disease with heart failure (principal); J96.01 Acute respiratory failure with hypoxia; E11.40 Type 2 diabetes mellitus with diabetic neuropathy, unspecified; I27.2 Other secondary pulmonary hypertension; I65.22 Occlusion and stenosis of left carotid artery; I35.0 Nonrheumatic aortic (valve) stenosis; I42.9 Cardiomyopathy, unspecified; F03.90 Unspecified dementia, unspecified severity, without behavioral disturbance, psychotic disturbance, mood disturbance, and anxiety; I50.23 Acute on chronic systolic (congestive) heart failure; Z79.4 Long term (current) use of insulin; E78.5 Hyperlipidemia, unspecified; Z91.81 History of falling; Z95.0 Presence of cardiac pacemaker; I25.10 Atherosclerotic heart disease of native coronary artery without angina pectoris; R41.0 Disorientation, unspecified; F32.9 Major depressive disorder, single episode, unspecified; Z66 Do not resuscitate
CPT/HCPCS: ERO; 81001; 87040; 87086; 93005; 93010; 96374; 96376; 97110-GO; 97116-GO; 97161-GP; J1644; J1940; J3490; J7508